=== PATIENT | female | born 1985 | race Caucasian/White ===

== ENCOUNTER 2021-09-01 07:16 | Outpatient (CLI) | payer OTHER, SELFPAY ==
--- NOTE | ~2021-09-01 | US_ITS ---
EXAMINATION: US right upper quadrant EXAM DATE: 09/01/2021 07:55 INDICATION: K80.20 - Calculus of gallbladder without cholecystitis. TECHNIQUE: Multiple grayscale and Doppler images of the abdomen right upper quadrant were obtained (b y a technologist who performed the scan) and subsequently reviewed. Comparison is made to prior exami nation from 08/13/2018. FINDINGS: The pancreatic head and body are normal in appearance. The pancreatic tail is not visualized. The l iver has normal echogenicity and contour. There are no focal liver lesions identified. There is no evidence of intrahepatic biliary duct dilation. Portal venous flow was seen in the hepatopedal, norm al direction and has normal Doppler waveform. No right-sided hydronephrosis. Common bile duct measures 3 mm, which is normal. There are multiple gallstones within an undistended bladder, wall echo shadow appearance. No sonographic evidence of pericholecystic fluid. Technologist performing exam reports patient did not demonstrate sonographic Martini's sign. Please note that thi s sign is less reliable in patients who have received pain medication. IMPRESSION: 1. Cholelithiasis. Reviewed, dictated and finalized at location A. IMPRESSION: 1. Cholelithiasis.
== END 2021-09-01 07:17 | disposition home or self-care (01) ==
LOC: ANHIMG 07:19
PROVIDERS: PCP Internal Medicine; Visit Provider Nurse Practitioner Family
DX: K80.20 Calculus of gallbladder without cholecystitis without obstruction (principal); R10.9 Unspecified abdominal pain
CPT/HCPCS: 76705

== ENCOUNTER 2021-09-23 03:38 | Day surgery (SDC) | payer OTHER, SELFPAY ==
[2021-09-02 14:07] VITALS: BMI 42.0
[2021-09-23 09:05] VITALS: BP 141/99; PULSE 60; RESP 18; TEMP 36.6; O2SAT 100
[2021-09-23] MEDS: LACTATED RINGERS 1,000 ML 150 ML IV CONT (09:14)
--- NOTE | 2021-09-23 09:54 | PM.HPGS ---
History of Present Illness History of Present Illness Consent: Risks, benefits, and alternatives have been discussed and questions answered. Patient agrees to proceed with procedure. Chief complaint: dysphagia, abdominal pain Narrative: Moriah Corona is a 35 year old female with intermittent upper abdominal pain and also few times sensation that food will get stuck briefly at chest level. Review of Systems Constitutional: Constitutional: Denies headache(s) and Denies weakness Eyes: Eyes: Denies blurry vision ENT: Reports Normal hearing present, Denies headache(s) and Denies neck pain Cardiovascular: Cardiovascular: Denies chest pain and Denies dyspnea Respiratory: Respiratory: Denies dyspnea Gastrointestinal: Gastrointestinal: Reports no additional gastrointestinal complaints Genitourinary: Genitourinary: Denies dysuria Musculoskeletal: Musculoskeletal: Denies neck pain Integumentary/Breasts: Skin/Breast: Denies dry skin Neurologic: Reports Normal hearing present, Denies headache(s) and Denies weakness Psychiatric: Psychiatric: Denies anxiety Endocrine: Endocrine: Denies change in body appearance Hematologic/Lymphatic: Hematologic/Lymphatic: Denies easy bleeding Allergic/Immunologic: Allergic/Immunologic: Denies urticaria PMFSH Past Medical History Medical History (Updated 08/04/21 @ 09:36 by SYEDA Coates) Abdominal pain Cholelithiases Dysphagia HTN (hypertension) Obese Surgical History Surgical History (Updated 08/04/21 @ 09:31 by SYEDA Coates) H/O: Hx of tonsillectomy Family History Family History Father Diabetes mellitus Sibling Hypertension Asthma Social History Social History Smoking status: Never smoker Second hand tobacco smoke exposure: No Alcohol intake: former Alcohol use details: very rarely Substance use: never Substance use type: does not use Living arrangements: with family Spiritual care concerns: No Meds Home Medications and Allergies Home Medications Medication Instructions Recorded Confirmed Type escitalopram oxalate 20 mg tablet 20 mg PO DAILY 08/04/21 09/02/21 History hydrochlorothiazide 12.5 mg tablet 12.5 mg PO DAILY 08/04/21 09/02/21 History lisinopril 40 mg tablet 40 mg PO DAILY 08/04/21 09/02/21 History Allergies Allergy/AdvReac Type Severity Reaction Status Date / Time No Known Allergies Allergy Verified 09/23/21 09:04 Vital Signs Vital Signs - 24 hr 09/23/21 09:05 Temperature 97.8 F Pulse Rate 60 Respiratory Rate 18 Blood Pressure 141/99 H Pulse Oximetry 100 Exam Const: General: comfortable and no acute distress HENMT: General nose exam: Normal nares present Eyes: General: appearance normal, both eyes and all related structures Neck: Neck: no JVD Resp: Auscultation: clear to auscultation bilaterally Cardio: Rate: regular rate Rhythm: regular rhythm GI: Inspection: non-distended GI Palp: Yes Soft to palpation Skin: General skin exam: normal color Neuro: General: gait normal Speech: normal speech Extrem: General: normal to inspection Psych: Mental Status: mental status grossly normal Assessment and Plan Assessment and plan (1) Dysphagia: Code(s): R13.10 - Dysphagia, unspecified Status: Acute Assessment and Plan: egd to assess, will get bx and dilation based on findings (2) Abdominal pain: Code(s): R10.9 - Unspecified abdominal pain Status: Acute (3) Obese: Code(s): E66.9 - Obesity, unspecified Status: Acute
--- NOTE | 2021-09-23 09:56 | P.PNAN_ITS ---
Anes - Eval Pre Procedure Procedure: Operation Date: 09/23/21 10:00 Proposed Procedures p Esophagogastroduodenoscopy - Isai Steven MD EGD Date/Time: 09/23/21 09:56 Surgeon: Bridget Preop Diagnosis: Dysplasia Pre Op Diagnosis: dysphagia, abdominal pain Patient Data Age: 35 Gender: F Height: 1.63 m Weight: 112.8 kg Last Vital Signs Temp 36.6 C 09/23/21 09:05 Pulse 60 09/23/21 09:05 Resp 18 09/23/21 09:05 BP 141/99 H 09/23/21 09:05 Pulse Ox 100 09/23/21 09:05 Allergies Allergy/AdvReac Type Severity Reaction Status Date / Time No Known Allergies Allergy Verified 09/23/21 09:04 Home Medications Medication Instructions Recorded Confirmed Type escitalopram oxalate 20 mg tablet 20 mg PO DAILY 08/04/21 09/02/21 History hydrochlorothiazide 12.5 mg tablet 12.5 mg PO DAILY 08/04/21 09/02/21 History lisinopril 40 mg tablet 40 mg PO DAILY 08/04/21 09/02/21 History HCG: negative Patient hx anesthesia problems: none Family hx anesthesia problems: none Results Review: All pre-operative results and documents have been reviewed as part of the pre-operative evaluation. [facility] Past Medical History Medical History (Updated 09/23/21 @ 09:58 by Treasure Lema CRNA) Abdominal pain Cholelithiases Dysphagia HTN (hypertension) Obese KRISTINA (obstructive sleep apnea) Surgical History Surgical History H/O: Hx of tonsillectomy Family History Family History Father Diabetes mellitus Sibling Hypertension Asthma Social History Social History Smoking status: Never smoker Second hand tobacco smoke exposure: No Alcohol intake: former Alcohol use details: very rarely Substance use: never Substance use type: does not use Living arrangements: with family Spiritual care concerns: No Exam Day of Procedure 09/23/21 09:56 Patient weight: morbidly obese Heart: regular rate and rhythm Lungs: normal air movement Airway: Mallampati scale class II Neurological: alert and oriented
--- NOTE | 2021-09-23 10:00 | WPDANESEFPP ---
Anes - Eval Final PreProcedure Day of Procedure 09/23/21 10:00 Patient weight: morbidly obese Heart: regular rate and rhythm Lungs: clear to auscultation Airway: Mallampati scale class II Neurological: alert and oriented Last oral intake: >/= 8 hours ASA classification: III Emergent: no Anesthetic plan: proceed Anesthesia type and monitoring: general GIVS and standard monitoring Results Review: All pre-operative results and documents have been reviewed as part of the pre-operative evaluation. Informed Consent: The patient's anesthetic plan and its attendant risks and benefits were discussed with the patient/family/POA. Questions were solicited and answers provided to the satisfaction of the patient/family/POA.
--- NOTE | 2021-09-23 10:12 | SUR.OPER ---
Esophageal Balloon Dilator Lot: [id number] Exp: 2023-04-11
[2021-09-23 10:21] VITALS: BP 126/79; PULSE 74; RESP 19; O2SAT 100
[2021-09-23 10:31] VITALS: BP 133/100; PULSE 63; RESP 19; O2SAT 100
[2021-09-23 10:41] VITALS: BP 137/90; PULSE 65; RESP 11; O2SAT 100
== END 2021-09-23 10:53 | disposition home or self-care (01) ==
PROVIDERS: PCP Internal Medicine; Visit Provider Internal Medicine Gastroenterology
PROC: 0DJ08ZZ Inspection of Upper Intestinal Tract, Via Natural or Artificial Opening Endoscopic (ICD-10-PCS; CPT 43235; principal; 2021-09-23 10:00)
DX: R13.10 Dysphagia, unspecified (principal); K21.00 Gastro-esophageal reflux disease with esophagitis, without bleeding; K44.9 Diaphragmatic hernia without obstruction or gangrene; K22.2 Esophageal obstruction; K29.70 Gastritis, unspecified, without bleeding; E66.01 Morbid (severe) obesity due to excess calories; Z68.41 Body mass index [BMI] 40.0-44.9, adult; I10 Essential (primary) hypertension; G47.33 Obstructive sleep apnea (adult) (pediatric)
CPT/HCPCS: 43249; 43239; 88305; C1726; J2704; J7120

== ENCOUNTER 2021-12-31 16:27 | Emergency (ER) | payer OTHER, SELFPAY ==
--- NOTE | ~2021-12-31 | CT_ITS ---
EXAMINATION: CT abdomen pelvis w con DATE: 12/31/2021 17:43 INDICATION: Abdominal pain. TECHNIQUE: Computed tomography (CT) of the abdomen and pelvis was performed with 100 mL Omnipaque 350 intravenous contrast. Automated exposure control and iterative reconstruction technique were employe d. The dose-length product was 1654.91 mGy-cm. COMPARISON: CT abdomen and pelvis 02/28/2019 FINDINGS: The visualized portions of the lung bases demonstrate mild atelectasis. Calcified right florentin g nodules and calcified right hilar lymph nodes are consistent with old granulomatous disease. No ple ural effusion. The heart size is normal. No pericardial effusion. There is a small sliding hiatal her carlota. The liver and spleen are normal. There are gallstones in the gallbladder, which is normal in siz e. The pancreas and adrenal glands are normal. There are cysts in the kidneys measuring up to 10 mm o n the right. There are no dilated loops of bowel. The appendix is normal. There are no pathologically enlarged lymph nodes. There is no free intraperitoneal fluid. There is mild thoracolumbar spondylosi s. IMPRESSION: 1. Cholelithiasis. No evidence of acute cholecystitis. 2. Small sliding hiatal hernia. Reviewed, dictated and finalized at location E. [employer]
[2021-12-31 16:29] VITALS: BP 158/86; PULSE 68; RESP 20; TEMP 36.1; O2SAT 100
[2021-12-31 16:59] LABS: Basophils Absolute Auto 0.1 K/mm3 (0.0-0.1); Basophils Percent Auto 0.6 % (0.2-1.2); Eosinophils Absolute Auto 0.2 K/mm3 (0-0.3); Eosinophils Percent Auto 1.5 % (0-4.4); Hematocrit 40.7 % (37.0-47.0); Hemoglobin 13.8 g/dL (12.0-15.0); Immature Granulocyte Absolute 0.02 K/mm3 (0.00-0.031); Immature Granulocyte Percent A 0.2 % (0-0.5); Lymphocytes Absolute Auto 2.78 K/mm3 (0.9-3.2); Lymphocytes Percent Auto 25.6 % (18.3-44.2); Mean Corpuscular HGB Conc 33.9 g/dl (32-36); Mean Corpuscular Hemoglobin 29.6 pg (26-34); Mean Corpuscular Volume 87.2 fl (80-100); Mean Platelet Volume 11.3 fl (7.4-10.4); Monocytes Absolute Auto 0.7 K/mm3 (0.1-0.6); Neutrophils Absolute Auto 7.2 K/mm3 (1.3-6.7); Neutrophils Percent Auto 66.1 % (45.5-73.1); Platelet Count Result 256 k/mm3 (150-375); Red Blood Count 4.67 M/mm3 (4.2-5.4); White Blood Count 10.9 K/mm3 (4.5-10.0)
--- NOTE | 2021-12-31 16:59 | ED.ABDPAIN ---
HPI - Abdominal Pain General Chief Complaint: Abdominal Pain Stated Complaint: abd pain Time Seen by Provider: 12/31/21 16:37 Source: patient Mode of arrival: ambulatory Limitations: no limitations History of Present Illness HPI narrative: This is a 36 year old female that presents to the ER for abdominal pain present today. Reports since last year she has been having intermittent episodes of upper abdominal and back pain. Reports it feels like a squeezing pain. She was evaluated by GI for this last year and had an upper endoscopy. Was placed on Omeprazole after this. Also reports she had a RUQ US that showed gallstones. Today the episode lasted longer than usual which prompted her to be seen. Reports an episode of vomiting today with the pain. Denies fever, chest pain, shortness of breath, or dysuria. Related Data Home Medications Medication Instructions Recorded Confirmed escitalopram oxalate 20 mg tablet 20 mg PO DAILY 08/04/21 09/28/21 hydrochlorothiazide 12.5 mg tablet 12.5 mg PO DAILY 08/04/21 09/28/21 lisinopril 40 mg tablet 40 mg PO DAILY 08/04/21 09/28/21 Allergies Allergy/AdvReac Type Severity Reaction Status Date / Time No Known Allergies Allergy Verified 09/28/21 08:55 Review of Systems Review of Systems: CONSTITUTIONAL: Denies fever CARDIOVASCULAR: Denies chest pain RESPIRATORY: Denies dyspnea. GASTROINTESTINAL: Reports abdominal pain, nausea, vomiting GENITOURINARY: Denies dysuria All systems reviewed & are unremarkable except as noted in HPI and below PMFSH Past Medical History Medical History (Updated 12/31/21 @ 19:31 by Loida Villareal PA-C) Abdominal pain Cholelithiases Dysphagia GERD (gastroesophageal reflux disease) HTN (hypertension) Obese KRISTINA (obstructive sleep apnea) Surgical History Surgical History H/O: Hx of tonsillectomy Family History Family History Father Diabetes mellitus Sibling Hypertension Asthma Social History Social History Second hand tobacco smoke exposure: No Alcohol intake: former Alcohol use details: very rarely Substance use: never Substance use type: does not use Spiritual care concerns: No Exam Narrative: GENERAL: Well-appearing, well-nourished, and in no acute distress. HEAD: Normocephalic, atraumatic. EYES: EOMI. CHEST: Clear to auscultation. No respiratory distress. No wheezes rales or rhonchi HEART: Regular rate and rhythm. No murmur heard. Normal peripheral pulses. ABDOMEN: Soft, nondistended, normal active bowel sounds. Mild tenderness to palpation in epigastrium, without guarding. No CVA tenderness EXTREMITIES: Normal range of motion. No edema. SKIN: Warm, dry, no rash. NEURO: No focal deficits. Alert and oriented x3. PSYCH: Normal mood and affect Course Vital Signs Vital signs: Vital Signs Temperature 96.9 F L 12/31/21 16:29 Pulse Rate 68 12/31/21 16:29 Respiratory Rate 20 12/31/21 16:29 Blood Pressure 158/86 H 12/31/21 16:29 Pulse Oximetry 100 12/31/21 16:29 Temperature 96.9 F L 12/31/21 16:29 Pulse Rate 68 12/31/21 16:29 Respiratory Rate 20 12/31/21 16:29 Blood Pressure 158/86 H 12/31/21 16:29 Pulse Oximetry 100 12/31/21 16:29 MDM - Abdominal Pain MDM Narrative Medical decision making narrative: This is a 36 year old female that presents to the ER for upper abdominal pain present over the last couple of hours. Reports she has had intermittent episodes of this pain over the last several months. She has been evaluated by GI for this and was started on Omeprazole for esophagitis and had an esophageal ring dilated. She has not been having any difficulty with swallowing since then. But is still intermittently having upper abdominal pains. She is afebrile and nontoxic-appearing. CBC with mild leukocytos
--- NOTE | 2021-12-31 17:04 | ECG_ITS ---
Measurements Intervals [place] Rate: 64 P: 58 TN: 194 QRS: 40 QRSD: 123 T: 67 QT: 420 QTc: 436 Interpretive Statements SINUS RHYTHM INCOMPLETE RIGHT BUNDLE BRANCH BLOCK BASELINE ARTIFACT- I, II, AVR BORDERLINE ECG Electronically Signed On 12-31-2021 20:10:11 [employer]ICA [employer] by Jed Null D.O.
[2021-12-31 17:08] LABS: Add Urine Microscopic? YES; Appearance Urine Clear (Clear); Bilirubin Urine Negative (Negative); Blood Urine 2+ (Negative); Color Urine Yellow (Yellow); Glucose Urine UA Negative (Negative); Ketones Urine Negative (Negative); Leukocyte Esterase Ur Negative LEU/UL (Negative); Mucus Urine Rare /lpf; Nitrate Urine Negative (Negative); Protein Urine 2+ mg/dL (Negative); Specific Grav Ur 1.028 (1.001-1.035); Squamous Epithelial Cell Urine Many /hpf (Few); WBC Urine 0-3 /hpf
[2021-12-31 17:09] LABS: Alanine Aminotransferase 43 U/L (4-35); Albumin Level 4.4 g/dL (3.5-5.1); Alkaline Phosphatase 72 U/L (38-126); Anion Gap 7 mmol/L (8-16); Aspartate Amino Transferase 58 U/L (14-36); Bilirubin,Total 0.9 mg/dL (0.2-1.3); Blood Urea Nitrogen 12 mg/dL (7-17); Carbon Dioxide 28 mmol/L (22-30); Chloride 103 mmol/L (98-107); Estimated CRCL calculation 113 ml/min; Estimated Glomerular Filt Rate > 60; Glucose 111 mg/dL (65-110); Lipase 121 U/L (23-300); Potassium 3.4 mmol/L (3.4-5.0); Sodium 138 mmol/L (137-145)
[2021-12-31] MEDS: ONDANSETRON INJ 4 MG/2 ML VIAL IV PUSH (17:22)
[2021-12-31] MEDS: PANTOPRAZOLE SODIUM IV 40 MG VIAL IV PUSH (17:22)
[2021-12-31] MEDS: SODIUM CHLORIDE 0.9% IV 1,000 ML 999 ML IV CONT (17:22)
--- NOTE | 2021-12-31 18:33 | PC.NURSE ---
Talked to Skinny in lab at 18:35 to add on Trop I baseline
[2021-12-31 18:57] LABS: Troponin I < 0.012 ng/mL (0.000-0.034)
--- NOTE | 2021-12-31 19:02 | PC.NURSE ---
Talked to Yimi in lab at 19:03 to add on PT INR PTT
[2021-12-31 19:17] LABS: Partial Thromboplastin Time 24.3 SECONDS (22.3-36.8); Prothrombin Time 13.1 Seconds (11.1-14.7)
[2021-12-31 19:35] VITALS: BP 142/86; PULSE 84; RESP 16; O2SAT 99
--- NOTE | 2022-01-04 14:45 | PC.NURSE ---
LATE ENTRY This note is being entered to document information to the patient's record. The following information was omitted on [ZOE Barfield], by [12/31/21]. [facility] [id number] [place] [id number]
== END 2021-12-31 19:40 | disposition home or self-care (01) ==
PROVIDERS: Physician Assistant; Emergency Provider Emergency Medicine; PCP Internal Medicine
DX: K80.20 Calculus of gallbladder without cholecystitis without obstruction (principal); K21.9 Gastro-esophageal reflux disease without esophagitis; I10 Essential (primary) hypertension; G47.33 Obstructive sleep apnea (adult) (pediatric); E66.9 Obesity, unspecified; Z68.43 Body mass index [BMI] 50.0-59.9, adult; K44.9 Diaphragmatic hernia without obstruction or gangrene; I45.10 Unspecified right bundle-branch block
CPT/HCPCS: 36415; 74177; 80053; 81001; 81025; 83690; 84484; 85025; 85610; 85730; 93005; 96361; 96365; 96375; 99284; C9113; J0131; J2405; J7030; Q9967

== ENCOUNTER 2022-08-11 14:45 | Inpatient (IN) | payer OTHER, SELFPAY ==
[2022-08-11] VITALS (7 sets, daily range): BP systolic 123–138; BP diastolic 84–90; PULSE 56–83; RESP 16–20; TEMP 36.1–36.4; O2SAT 95–100
--- NOTE | ~2022-08-11 | XR_ITS ---
EXAMINATION: XR abdomen/kub 1V DATE: 08/15/2022 03:08 INDICATION: Vomiting. TECHNIQUE: A supine view of the abdomen on 2 radiographs was obtained. COMPARISON: MRCP 08/12/2022 FINDINGS: There are no dilated loops of bowel. There is a small volume of stool in the colon. IMPRESSION: 1. Normal bowel gas pattern. Reviewed, dictated and finalized at location A.
--- NOTE | ~2022-08-11 | XR_ITS ---
EXAMINATION: XR chest 1V portable DATE: 08/16/2022 11:53 INDICATION: Hypoxia. TECHNIQUE: A single frontal view of the chest was obtained. COMPARISON: Chest single view 08/14/2022, CT abdomen and pelvis 09/14/2022 FINDINGS: The lung volumes are small. There are airspace opacities in right mid and lower lung zones and left lower lung zone. No pleural effusion or pneumothorax. The heart size is normal. IMPRESSION: 1. Small lung volumes with airspace opacities in right mid and lower lung zones and left lower lung z one, consistent with atelectasis or less likely pneumonia. Reviewed, dictated and finalized at location A. IMPRESSION: 1. Small lung volumes with airspace opacities in right mid and lower lung zones and left lower lung zone, consistent with atelectasis or less likely pneumonia .
--- NOTE | ~2022-08-11 | XR_ITS ---
EXAMINATION: XR chest PICC line 08/16/2022 13:56 INDICATION: PICC line placement PROCEDURE: AP portable chest COMPARISON: 08/16/2022 FINDINGS: Status post placement of left subclavian PICC line, tip near the cavoatrial junction. Shall ow inspiration with bibasilar airspace disease. The cardiomediastinal silhouette is within normal limits. There are no pleural effusions. There is no pneumothorax suspected. IMPRESSION: 1: Shallow inspiration with bibasilar airspace disease which may represent atelectasis or pneumonia. Reviewed, dictated and finalized at location B. IMPRESSION: 1: Shallow inspiration with bibasilar airspace disease which may represent ate lectasis or pneumonia.
--- NOTE | ~2022-08-11 | CT_ITS ---
EXAMINATION: CT abdomen pelvis w con DATE: 08/19/2022 17:34 INDICATION: pancreatitis TECHNIQUE: Computed tomography (CT) of the abdomen and pelvis was performed with 100 mL Omnipaque-350 intravenous contrast. Automated exposure control and iterative reconstruction technique were employe d. The dose-length product was 1654.23 mGy-cm. COMPARISON: 08/15/2022. FINDINGS: Lower thorax: Coronary artery cusp dictation. Small or pleural effusion. Small bilateral pleural effu sions with bibasilar atelectasis. Liver: Left lobe hypodensity, too small to characterize. Biliary/Gallbladder: Cholelithiasis. No bile duct dilation. Pancreas: Generally decreased peripancreatic fluid and inflammation at the pancreatic body/tail, with increased inflammation and fluid about the pancreatic head. Focal areas of hypodensity now apparent in the pancreatic head. Increased and somewhat localized appearing fluid in the area of pancreatic ne crosis. Spleen: Normal. Adrenals:No mass. Kidneys: Bilateral hypodensities that are too small to characterize. No suspicious mass, stone, or hy dronephrosis. GI tract: No small or large bowel dilation. Normal appendix. Mesentery/Peritoneum: Moderate volume ascites, slightly decreased since the prior study. No mass or f ree air. Retroperitoneum: No mass. Pelvis: Pelvic organs are within normal limits. Soft Tissues: Small uncomplicated fat-containing umbilical hernia. Moderate subcutaneous edema in the trunk. Bones: No acute osseous finding. IMPRESSION: Slightly increased small pericardial and bilateral pleural effusions. Focal worsening of peripancreat ic inflammation at the pancreatic head, likely with new focal areas of necrosis. 6.7 cm acute necroti c collection in the pancreatic body. Overall decreased peritoneal fluid. Worsened wall edema. Reviewed, dictated and finalized at location K. IMPRESSION: Slightly increased small pericardial and bilateral pleural effusions. Focal wor sening of peripancreatic inflammation at the pancreatic head, likely with new f ocal areas of necrosis. 6.7 cm acute necrotic collection in the pancreatic body . Overall decreased peritoneal fluid. Worsened wall edema.
--- NOTE | ~2022-08-11 | XR_ITS ---
EXAMINATION: XR fl guid NG/feed tube insert DATE: 08/21/2022 12:06 INDICATION: Discomfort with prior nasogastric tube insertions. Repeat is a gastric tube insertion req uested with fluoroscopic guidance. TECHNIQUE: A nasogastric tube was advanced into the in stomach utilizing intermittent fluoroscopy. Final image d emonstrates the nasogastric tube in position with the distal tip at the gastric antrum. The tube was fixed to the nares with adhesive tape. 3 fluoroscopic images and a single overhead radiographs were r ecorded. The amount of fluoroscopy time used during this procedure was 0.9 minutes. There were no imm ediate complications. Total DAP was 35.966 Gycm^2 FINDINGS/IMPRESSION: 1. Successful fluoroscopy-guided nasogastric tube placement with distal tip at the gastric antrum. 2. Multiple calcified gallstones in the right upper quadrant. Reviewed, dictated and finalized at location A.
--- NOTE | ~2022-08-11 | XR_ITS ---
EXAMINATION: XR chest 1V portable DATE: 08/14/2022 20:10 INDICATION: Chest pain, nausea and vomiting TECHNIQUE: frontal view of the chest was obtained. COMPARISON: None FINDINGS: The lungs are clear with no focal airspace opacities, pulmonary edema, pleural effusion or pneumothor ax. The cardiomediastinal silhouette is normal. Visualized bones and soft tissues are unremarkable. IMPRESSION: 1. No acute cardiopulmonary disease. Reviewed, dictated and finalized at location A.
--- NOTE | ~2022-08-11 | CT_ITS ---
EXAMINATION: CT abdomen pelvis w con DATE: 08/15/2022 12:39 INDICATION: Abdominal pain. Pancreatitis. Leukocytosis. TECHNIQUE: Computed tomography (CT) of the abdomen and pelvis was performed with 100 mL Omnipaque 350 intravenous contrast. Automated exposure control and iterative reconstruction technique were employe d. The dose-length product was 1544.84 mGy-cm. COMPARISON: CT abdomen and pelvis 12/31/2021, MRCP 08/12/2022 FINDINGS: The visualized portions of the lung bases demonstrate mild atelectasis. A calcified right l ld nodule and calcified right hilar lymph nodes are consistent with old granulomatous disease. There are trace pleural effusions. The heart size is normal. There is a trace pericardial effusion. There is a small sliding hiatal hernia. There is a 5 mm cyst in the liver. There are gallstones in the gall bladder, which is normal in size. There is gas in the gallbladder lumen, likely secondary to sphincte rotomy. The spleen and adrenal glands are normal. There are cysts in the kidneys measuring up to 5 mm on the right. There is heterogeneous enhancement of the pancreas and nonenhancement at the junction of the head and body of the pancreas. There is extensive fat stranding and fluid around the pancreas extending into the pelvis. There is a moderate volume of ascites. The bladder is decompressed by a Fo concepcion catheter. There are no dilated loops of bowel. The appendix is normal. There are no pathologicall y enlarged lymph nodes. There is mild thoracolumbar spondylosis. IMPRESSION: 1. Acute necrotic pancreatitis. 2. Worsened moderate volume of ascites. 3. Cholelithiasis. Reviewed, dictated and finalized at location A.
--- NOTE | ~2022-08-11 | XR_ITS ---
EXAMINATION: XR abdomen NG/feed tube insert DATE: 08/15/2022 05:27 INDICATION: Nasogastric tube placement. TECHNIQUE: A supine view of the abdomen was obtained. COMPARISON: MRCP 08/12/2022 FINDINGS: There are no dilated loops of bowel. The lower abdomen is excluded. The nasogastric tube ti p is in the stomach. IMPRESSION: 1. Nasogastric tube tip in the stomach. Reviewed, dictated and finalized at location A.
--- NOTE | ~2022-08-11 | XR_ITS ---
EXAMINATION: XR ERCP DATE: 08/14/2022 16:09 INDICATION: Abdominal pain and cholelithiasis. TECHNIQUE: 3 spot fluoroscopic images of the right upper quadrant were obtained during endoscopic ret rograde cholangiopancreatography (ERCP) performed by Dr. Gilbert. Radiologist was not present for the i maging or procedure. The amount of fluoroscopy time used during this procedure was 0.5 minutes. COMPARISON: None. FINDINGS: Images demonstrate endoscopic cannulation and contrast injection into the common bile duct. There are couple ovoid filling defects within the common bile duct which could represent either gallstones or gas bubbles. The common bile duct appears to be at the upper limits of normal in diameter. IMPRESSION: 1. Lucent filling defects within the contrast opacified common bile duct which could represent either gallstones or gas bubbles. Please refer to the ERCP procedure note for additional details. Reviewed, dictated and finalized at location A. IMPRESSION: 1. Lucent filling defects within the contrast opacified common bile duct which could represent either gallstones or gas bubbles. Please refer to the ERCP proc edure note for additional details.
--- NOTE | ~2022-08-11 | CT_ITS ---
EXAMINATION: CT abdomen pelvis wo con DATE: 08/21/2022 11:15 INDICATION: Increasing abdominal pain with pancreatitis. TECHNIQUE: Computed tomography (CT) of the abdomen and pelvis was performed without intravenous contr ast. The dose-length product was 1701.46 mGy-cm. Automated exposure control and iterative reconstruct ion technique were employed. COMPARISON: CT dated 08/19/2022. FINDINGS: Persistent pericardial and pleural effusions without significant change. There is thickened ill-defined pancreas with worsening surrounding phlegmonous change, consistent with pancreatitis. In creased size of hypodense mass involving the pancreatic body measuring 5.7 cm. There are gallstones. No significant hydronephrosis. Small fat-containing umbilical hernia. Increasing ascites compared wit h prior CT. No free air. IMPRESSION: 1. Pancreatitis with worsening peripancreatic phlegmonous change. Enlarging hypodense mass of the flynn creatic body which may represent pancreatic necrosis, pseudocyst formation or abscess. This is incomp letely evaluated without contrast. 2: Cholelithiasis. 3: Slightly increased volume of ascites. 4: Stable pericardial and pleural effusions. Bibasilar airspace disease may represent atelectasis and /or pneumonia. Reviewed, dictated and finalized at location A. IMPRESSION: 1. Pancreatitis with worsening peripancreatic phlegmonous change. Enlarging hyp odense mass of the pancreatic body which may represent pancreatic necrosis, pse udocyst formation or abscess. This is incompletely evaluated without contrast. 2: Cholelithiasis. 3: Slightly increased volume of ascites. 4: Stable pericardial and pleural effusions. Bibasilar airspace disease may rep resent atelectasis and/or pneumonia.
--- NOTE | ~2022-08-11 | XR_ITS ---
XR abdomen/kub 1V 08/18/2022 08:51 Indication: Abdomen pain. Pancreatitis. Procedure: KUB Comparison: CT dated 08/15/2022 Findings: Bowel gas pattern is nonobstructive. There are gallstones. No acute osseous abnormality. Mi ld levocurvature of the lumbar spine. No acute osseous abnormality. Impression: 1: Cholelithiasis. Reviewed, dictated and finalized at location B. Impression: 1: Cholelithiasis.
--- NOTE | ~2022-08-11 | US_ITS ---
EXAMINATION: US venous doppler E DATE: 08/21/2022 14:59 INDICATION: Left arm warmth and swelling TECHNIQUE: Grayscale ultrasound images without and with compression and Doppler ultrasound images of the left upper extremity veins were obtained. COMPARISON: None.. FINDINGS: The visualized portions of the left internal jugular vein, subclavian vein, axillary vein, brachial v eins, basilic vein, cephalic vein, radial vein, and ulnar vein are patent. Left upper extremity PICC. IMPRESSION: 1. No deep venous thrombosis. Reviewed, dictated and finalized at location K.
--- NOTE | ~2022-08-11 | US_ITS ---
EXAMINATION: US right upper quadrant DATE: 08/11/2022 17:01 INDICATION: Right upper quadrant pain TECHNIQUE: Multiple grayscale and Doppler ultrasound images of the abdomen were obtained. COMPARISON: 09/01/2021 FINDINGS: The head and body of the pancreas are normal. The pancreatic tail is obscured by bowel gas. The liver is normal with normal echogenicity and echotexture. No surface nodularity. Normal hepatope charmaine flow in the main portal vein. There are innumerable stones in the nondistended gallbladder. There is no pericholecystic fluid or gallbladder wall thickening. The normal common bile duct measures 4 m m. There was no sonographic Martini sign. IMPRESSION: 1. Cholelithiasis without additional findings of cholecystitis. Reviewed, dictated and finalized at location A.
--- NOTE | ~2022-08-11 | MR_ITS ---
EXAMINATION: MR MRCP wo/w con/w 3D wo ind DATE: 08/12/2022 12:52 INDICATION: Abnormal liver function tests. TECHNIQUE: Magnetic resonance imaging (MRI) of the abdomen was performed without and with 20 mL Multi Kady intravenous contrast. Sequences included coronal T2-weighted FS FSE, coronal T2-weighted FSE, a xial T1-weighted LAVA, coronal FS FIESTA, axial dual-echo T1-weighted SPGR, coronal lava-FLEX, sagitt al T2-weighted FSE, axial T2-weighted FSE, and axial DWI. Thick-slab T2-weighted FSE images were obta ined for magnetic resonance cholangiopancreatography (MRCP). Maximum intensity projection 3-D reconst ructions of the volumetric data were created by the technologist. Postcontrast sequences included cor onal LAVA-flex and time course of axial T1-weighted LAVA. COMPARISON: CT abdomen and pelvis 12/31/2021, ultrasound 08/11/2022 FINDINGS: ABDOMEN MRI: There are tiny pleural effusions. There is diffuse hepatic steatosis. There are cysts in the liver measuring up to 6 mm. There are gallstones in the gallbladder, which is distended. The spl een is normal. Pancreas divisum is noted. The adrenal glands, and right kidney are normal. There is a 6 mm cyst in left kidney. There are no dilated loops of bowel. The appendix is normal. There is phys iologic fluid in the pelvis. There are no pathologically enlarged lymph nodes. ABDOMEN MRCP: The common duct is dilated to 8 mm. There are filling defects in the common duct measur ing up to 4 mm, consistent with choledocholithiasis. IMPRESSION: 1. Choledocholithiasis and mild common duct dilatation. 2. Cholelithiasis and gallbladder distention. No gallbladder wall thickening to suggest acute cholecy stitis. Reviewed, dictated and finalized at location E. IMPRESSION: 1. Choledocholithiasis and mild common duct dilatation. 2. Cholelithiasis and gallbladder distention. No gallbladder wall thickening to suggest acute cholecystitis.
--- NOTE | ~2022-08-11 | US_ITS ---
EXAMINATION: US venous doppler [facility] DATE: 08/17/2022 15:56 INDICATION: Bilateral lower limb pain and swelling TECHNIQUE: Russell scale images without and with compression and Doppler images of the bilateral lower e xtremity veins were obtained. COMPARISON: None FINDINGS: There is deep venous thrombosis in the right posterior tibial and peroneal veins. The right common fe moral vein, profunda femoral vein, femoral vein, popliteal vein, and greater saphenous vein are paten t. The left common femoral vein, profunda femoral vein, femoral vein, popliteal vein, peroneal trunk, po sterior tibial veins, and greater saphenous vein are patent. IMPRESSION: 1. Deep venous thrombosis in the right posterior tibial and peroneal veins. Otherwise, patent bilater al lower extremity veins. These findings were discussed with CEASAR Michaud working with Dr. Granger at 16 02 hours on 08/17/2022. Reviewed, dictated and finalized at location A. IMPRESSION: 1. Deep venous thrombosis in the right posterior tibial and peroneal veins. Oth erwise, patent bilateral lower extremity veins. These findings were discussed with CEASAR Michaud working with Dr. Granger at 1602 hours on 08/17/2022.
[2022-08-11 15:31] LABS: Basophils Absolute Auto 0.1 K/mm3 (0.0-0.1); Basophils Percent Auto 0.9 % (0.2-1.2); Eosinophils Absolute Auto 0.2 K/mm3 (0-0.3); Eosinophils Percent Auto 2.4 % (0-4.4); Hematocrit 41.6 % (37.0-47.0); Hemoglobin 14.1 g/dL (12.0-15.0); Immature Granulocyte Absolute 0.04 K/mm3 (0.00-0.031); Immature Granulocyte Percent A 0.4 % (0-0.5); Lymphocytes Absolute Auto 1.61 K/mm3 (0.9-3.2); Lymphocytes Percent Auto 16.9 % (18.3-44.2); Mean Corpuscular HGB Conc 33.9 g/dl (32-36); Mean Corpuscular Hemoglobin 29.6 pg (26-34); Mean Corpuscular Volume 87.4 fl (80-100); Mean Platelet Volume 11.1 fl (7.4-10.4); Monocytes Absolute Auto 0.4 K/mm3 (0.1-0.6); Monocytes Percent Auto 3.9 % (2.6-8.5); Neutrophils Absolute Auto 7.2 K/mm3 (1.3-6.7); Neutrophils Percent Auto 75.5 % (45.5-73.1); Platelet Count Result 272 k/mm3 (150-375); Red Blood Count 4.76 M/mm3 (4.2-5.4); White Blood Count 9.5 K/mm3 (4.5-10.0)
[2022-08-11 15:40] LABS: Alanine Aminotransferase 497 U/L (6-35); Albumin Level 4.2 g/dL (3.5-5.1); Alkaline Phosphatase 162 U/L (38-126); Anion Gap 10 mmol/L (8-16); Aspartate Amino Transferase 594 U/L (14-36); Bilirubin,Total 4.1 mg/dL (0.2-1.3); Blood Urea Nitrogen 10 mg/dL (7-17); Calcium 9.2 mg/dL (8.4-10.2); Carbon Dioxide 30 mmol/L (22-30); Chloride 97 mmol/L (98-107); Estimated CRCL calculation 101 ml/min; Estimated Glomerular Filt Rate > 60; Glucose 130 mg/dL (65-110); Lipase 110 U/L (23-300); Potassium 3.8 mmol/L (3.4-5.0); Sodium 137 mmol/L (137-145)
[2022-08-11 16:22] LABS: Bacteria Urine Trace /hpf; Mucus Urine Rare /lpf; Squamous Epithelial Cell Urine Many /hpf (Few)
[2022-08-11 16:23] LABS: Add Urine Microscopic? YES; Appearance Urine Slightly Cloudy (Clear); Color Urine Orange (Yellow)
--- NOTE | 2022-08-11 17:54 | ED.ABDPAIN ---
HPI - Abdominal Pain General Chief Complaint: Abdominal Pain Stated Complaint: abd pain, nausea Time Seen by Provider: 08/11/22 16:06 History of Present Illness HPI narrative: Patient is a 36-year-old female who presents ER with right upper quadrant abdominal pain. Reports she had severe pain yesterday and went to [facility] to be evaluated however her pain subsided and the wait was long so she left. She has had recurrent pain today. It occurs at least 30 minutes after she eats. She has had nausea and vomiting at both times. Currently pain is resolved. No fevers or chills or sweats. Related Data Home Medications Medication Instructions Recorded Confirmed escitalopram oxalate 20 mg tablet 20 mg PO DAILY 08/04/21 09/28/21 (Lexapro) hydrochlorothiazide 12.5 mg tablet 12.5 mg PO DAILY 08/04/21 09/28/21 lisinopril 40 mg tablet 40 mg PO DAILY 08/04/21 09/28/21 Allergies Allergy/AdvReac Type Severity Reaction Status Date / Time No Known Allergies Allergy Verified 09/28/21 08:55 Review of Systems Review of Systems: All systems reviewed & are unremarkable except as noted in HPI and below Constitutional: Constitutional: Denies chills, Denies fatigue and Denies fever(s) Cardiovascular: Cardiovascular: Denies chest pain and Denies rapid heart rate Respiratory: Respiratory: Denies cough and Denies dyspnea Gastrointestinal: Gastrointestinal: Reports abdominal pain, Denies diarrhea, Reports nausea and Reports vomiting Genitourinary: Genitourinary: Denies nocturia and Denies dysuria [facility] Past Medical History Medical History (Updated 08/11/22 @ 18:53 by Kenny Lanier MD) Abdominal pain Cholelithiases Dysphagia GERD (gastroesophageal reflux disease) HTN (hypertension) Obese KRISTINA (obstructive sleep apnea) Surgical History Surgical History H/O: Hx of tonsillectomy Family History Family History Father Diabetes mellitus Sibling Hypertension Asthma Social History Social History Second hand tobacco smoke exposure: No Alcohol intake: former Alcohol use details: very rarely Substance use: never Substance use type: does not use Spiritual care concerns: No Exam Narrative: GENERAL: Well-appearing, well-nourished, and in no acute distress. HEAD: Normocephalic, atraumatic. CHEST: Clear to auscultation. No respiratory distress. HEART: Regular rate and rhythm. Normal peripheral pulses. ABDOMEN: Soft, nontender, nondistended. EXTREMITIES: Normal range of motion. No edema. SKIN: Warm, dry, no rash. NEURO: Alert and oriented x3. PSYCH: Normal mood and affect. Course Course Emergency Course: Patient resting comfortably. Informed of results. Discussed case with Dr. Momin who would like patient admitted for observation make sure labs normalize. Admit to hospitalist. Request GI consult for tomorrow. Vital Signs Vital signs: Vital Signs Temperature 97.5 F L 08/11/22 15:25 Pulse Rate 83 08/11/22 15:25 Respiratory Rate 20 08/11/22 15:25 Blood Pressure 135/84 08/11/22 15:25 Pulse Oximetry 99 08/11/22 15:25 Oxygen Delivery Room Air 08/11/22 15:25 Temperature 97.5 F L 08/11/22 15:25 Pulse Rate 83 08/11/22 15:25 Respiratory Rate 20 08/11/22 15:25 Blood Pressure 135/84 08/11/22 15:25 Pulse Oximetry 99 08/11/22 15:25 Oxygen Delivery Room Air 08/11/22 15:25 MDM - Abdominal Pain Lab Data Result diagrams: 08/11/22 15:23 08/11/22 15:23 Labs: Lab Results 08/11/22 08/11/22 08/11/22 Range/Units 15:23 15:23 16:10 WBC 9.5 (4.5-10.0) K/mm3 RBC 4.76 (4.2-5.4) M/mm3 Hgb 14.1 (12.0-15.0) g/dL Hct 41.6 (37.0-47.0) % MCV 87.4 (80-100) fl MCH 29.6 (26-34) pg MCHC 33.9 (32-36) g/dl RDW 13.0 (11.5-14.
[2022-08-11] MEDS: SODIUM CHLORIDE 0.9% IV 1,000 ML 125 ML IV CONT ×2 (19:36→21:13)
--- NOTE | 2022-08-11 23:50 | PM.IMHP ---
H&P: HPI History of Present Illness Date/Time: 08/11/22 23:50 Chief Complaint: abdominal pain Narrative: this is a 36-year-old female patient who has had several bouts with cholelithiasis. The patient stated during the winter last year she was having problems with her gallstones and never did follow-up with a surgeon because her symptoms resolved. The patient has not been watching her diet. Last night the patient had little [employer] and develops discomfort In her right upper quadrant. The patient actually had gone to [facility] to be seen but they were so busy that she did not get into a room in the ER and the patient was starting to feel better last night. However the pain came back today. Her pain came on today about 30 minutes after eating again. She had nausea and vomiting both times. She had consult to see a surgeon and just has not done it as of yet she is concerned about having postop complications. She had postop complications with 1 of her C-sections and is fearful of surgery now. Ultrasound of her upper abdomen shows cholelithiasis without additional findings of cholecystitis. Total bilirubin 4.1 AST is 594, ALT 495, alkaline phosphatase 162. Surgery and GI have been consulted. An order for MRCP has been placed. The patient was started on IV fluids and given IV Tylenol. The patient is being admitted to observation status on the date of service of 08/11/2022. Review of Systems Review of Systems: See HPI All systems reviewed & are unremarkable except as noted in HPI and below Constitutional: Constitutional: Reports as per HPI and Reports no additional constitutional complaints Eyes: Eyes: Reports as per HPI and Reports no additional eye complaints ENT: Reports system reviewed and no additional complaints, except as documented and Reports Normal hearing present Cardiovascular: Cardiovascular: Reports no additional cardiovascular complaints Respiratory: Respiratory: Reports no additional respiratory complaints and Reports no additional respiratory complaints Gastrointestinal: Gastrointestinal: Reports as per HPI and Reports no additional gastrointestinal complaints Musculoskeletal: Musculoskeletal: Reports no additional musculoskeletal complaints Integumentary/Breasts: Skin/Breast: Reports system reviewed and no additional complaints, except as docu and Reports as per HPI Neurologic: Reports system reviewed and no additional complaints, except as documented, Reports as per HPI and Reports Normal hearing present Psychiatric: Psychiatric: Reports no additional psychiatric complaints and Reports as per HPI Endocrine: Endocrine: Reports no additional endocrine complaints Hematologic/Lymphatic: Hematologic/Lymphatic: Reports no additional hematologic/lymphatic complaints Allergic/Immunologic: Allergic/Immunologic: Reports no additional allergic/immunologic complaints [facility] Past Medical History Medical History (Updated 08/11/22 @ 23:57 by Aislinn Sol NP) Abdominal pain Anxiety Cholelithiases Dysphagia GERD (gastroesophageal reflux disease) HTN (hypertension) Obese KRISTINA (obstructive sleep apnea) she does not wear her CPAP machine she has an oral apparatus. Surgical History Surgical History (Updated 08/11/22 @ 23:56 by Aislinn Sol NP) H/O abdominal surgery due to postop postop complication H/O tubal ligation H/O: X3 Hx of tonsillectomy Family History Family History Father Diabetes mellitus Sibling Hypertension Asthma Social History Social History (Updated 08/11/22 @ 23:57 by Aislinn Sol NP) Social History: the patient is and lives with her . They have 3 children together. She is a lifelong nonsmoker. She does not use any alcohol marijuana or illicit drugs. 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 Her is the durable power horse trader for healthcare. Code status
[2022-08-12 00:22] VITALS: BMI 41.8
--- NOTE | 2022-08-12 00:25 | PC.NURSE ---
This patient, Moriah Corona, was admitted to [facility] Surg Room 319-01. Patient/family oriented to hospital policies and general routines including ID bracelet, bed and alarms, visiting hours, pain management, procedures, bathroom and other care routines, personal items, smoking policy, room service/diet, and visiting hours. Information on how to activate the Rapid Response Team has been discussed. Patient/Family are encouraged to report perceived risks to care and to ask questions if they do not understand what they are told or what they should do. arrived at 2034
[2022-08-12 06:00] VITALS: BP 145/92; PULSE 56; RESP 18; TEMP 36.4; O2SAT 100
--- NOTE | 2022-08-12 09:39 | WPDGICN ---
Assessment and Plan Assessment and plan (1) Transaminitis: Code(s): R74.01 - Elevation of levels of liver transaminase levels Status: Acute Assessment and Plan: marked elevation of her liver enzymes suggest choledocholithiasis. Although bile ducts are normal on initial imaging, she will need an MRCP. I told her that if MRCP suggest sludge or stones in the bile duct, or if LFTs remain elevated, that we would need to perform an ERCP so that she could have a simple laparoscopic cholecystectomy. (2) Cholelithiases: Code(s): K80.20 - Calculus of gallbladder without cholecystitis without obstruction Status: Acute Assessment and Plan: She has known about gallstones for most of the past year but was hesitant about seen a surgeon because she had postoperative complications after a Caesarean section. (3) Abdominal pain: Code(s): R10.9 - Unspecified abdominal pain Status: Acute Assessment and Plan: Her pain is not present today. Most of her attacks Generally would last less than an hour until the past few days. (4) GERD (gastroesophageal reflux disease): Code(s): K21.9 - Gastro-esophageal reflux disease without esophagitis Status: Acute Assessment and Plan: she uses [id number] meds as needed Plan I had a long discussion with her regarding the anatomy of the biliary tract and how gallstones leave the gallbladder and can get impacted in the bile duct. I explained a correlation of her abnormal liver enzymes. I told her that she will certainly need her gallbladder to be removed and possibly an ERCP. She has an MRCP scheduled for this morning. GI Consult Note Consult date/time: 08/12/22 09:39 HPI: Moriah Corona is a 36 year old female Who was admitted last evening with abdominal pain and vomiting. The patient states that she has had gallbladder attacks a past year or so. She did have an ultrasound 8 or 9 months ago that did show gallstones and she had actually been referred at 1 time to a surgeon. Usually her attacks would look her towards evening but more recently they would occur as well during the day and last anywhere from a few minutes to up to 1 hour. Is generally a bandlike discomfort and tightness across her upper abdomen and around her torso at the lower thoracic area. She had had pizza 2 days ago and became uncomfortable with pain primarily in the upper right side. She went to an emergency room in [place] but waited so long to get seen that she went home because the pain had subsided by that time. On arrival yesterday she had pain that had been going on for longer period of time. She also was vomiting on when she had some pain she has noticed that her urine is darker particularly take a more so than yesterday she has never had liver disease in the past. I note that when she was seen in our emergency room her bilirubin was normal AST 58 and ALT 43. At this time they are all approximately 10 times elevated with AST 594, ALT 497, and now the alkaline phosphatase is elevated. Her bilirubin is 4.1. Lipase is normal. She has otherwise no gastrointestinal complaints. Her weight is stable. She denies dysphagia or chronic heartburn, she denies change in bowel habits. She is not aware of any family history of gallbladder disease CT scan of the abdomen showed: 1. Cholelithiasis. No evidence of acute cholecystitis. 2. Small sliding hiatal hernia. I have personally reviewed the CT scan. Ultrasound also shows only gallstones and no dilated bile duct. Review of Systems Review of Systems: All systems reviewed & are unremarkable except as noted in HPI and below PMFSH Past Medical History Medical History Abdominal pain Anxiety Cholelithiases Dysphagia GERD (gastroesophageal reflux disease) HTN (hypertension) Obese KRISTINA (obstructive sleep apnea) she does not wear her CPAP machine she
[2022-08-12] MEDS: lisinopriL 20 MG TABLET 40 MG PO (09:45)
[2022-08-12] MEDS: ESCITALOPRAM OXALATE 10 MG TABLET 20 MG PO (09:45)
[2022-08-12] MEDS: hydroCHLOROthiazide 25 MG TABLET PO (09:45)
[2022-08-12 09:46] VITALS: BP 146/89; PULSE 61; O2SAT 100
--- NOTE | 2022-08-12 09:57 | PM.CNGS ---
Assessment and Plan Assessment and plan (1) Cholelithiases: Code(s): K80.20 - Calculus of gallbladder without cholecystitis without obstruction Status: Acute Assessment and Plan: I have reviewed the imaging and discussed the findings with the patient. She has evidence of cholelithiasis and has had intermittent attacks of pain and was noted to have significantly elevated liver enzymes on presentation to the emergency department yesterday. The high bilirubin level is concerning for possible choledocholithiasis although her common bile duct appeared normal on the ultrasound. Will await MRCP results to determine if ERCP is necessary. I discussed proceeding with laparoscopic cholecystectomy at some point in the near future. If MRCP is normal, could plan for laparoscopic cholecystectomy in the next 24-48 hours. If she is completely asymptomatic and liver enzymes are normalizing, then this could be delayed shortly and she could be brought back as an outpatient to proceed with surgery. Will discuss best recommendation of treatment once MRCP is obtained and follow up morning labs are reviewed. (2) Transaminitis: Code(s): R74.01 - Elevation of levels of liver transaminase levels Status: Acute (3) Hyperbilirubinemia: Code(s): E80.6 - Other disorders of bilirubin metabolism Status: Acute (4) Upper abdominal pain: Code(s): R10.10 - Upper abdominal pain, unspecified Status: Acute Plan Thank you very much for allowing us to aid in the care of this patient. History of Present Illness Consult details Consult date: 08/12/22 Reason for consult: gallstones Requesting physician: Kenny Lanier MD Narrative: This is a 36-year-old woman who I am asked to see for cholelithiasis. She has had some intermittent abdominal pains over the past year. She has noticed that fried foods caused the pain once in the past. The symptoms had resolved and she was tolerating eating foods like pizza without any recurrence of pain. Over the past week she has had multiple episodes of abdominal pain that come and go. Her pain is located in the upper abdomen and radiating around to her back. She denies any fevers or chills. She has not noticed any jaundice of her skin. She did notice her urine turned very dark yesterday. She denies any change in her bowel habits or stool color. She presented to the emergency department yesterday with the symptoms and was admitted for further treatment. Her pain is only mild and intermittent at this time. MRCP has been ordered but has not been done yet today. Review of Systems Review of Systems: All systems reviewed & are unremarkable except as noted in HPI and below Eyes: Eyes: Denies change in vision ENT: Denies hearing loss, Denies neck pain and Denies sore throat Cardiovascular: Cardiovascular: Denies chest pain and Denies dyspnea Respiratory: Respiratory: Denies cough, Denies dyspnea and Denies wheezing Gastrointestinal: Gastrointestinal: Reports as per HPI Genitourinary: Genitourinary: Denies hematuria and Denies dysuria Musculoskeletal: Musculoskeletal: Denies arthralgias, Denies joint swelling and Denies neck pain Allergic/Immunologic: Allergic/Immunologic: Denies wheezing [facility] Past Medical History Medical History Abdominal pain Anxiety Cholelithiases Dysphagia GERD (gastroesophageal reflux disease) HTN (hypertension) Obese KRISTINA (obstructive sleep apnea) she does not wear her CPAP machine she has an oral apparatus. Surgical History Surgical History H/O abdominal surgery due to postop postop complication H/O tubal ligation H/O: X3 Hx of tonsillectomy Family History Family History Father Diabetes mellitus Sibling Hypertension Asthma Social Hist
--- NOTE | 2022-08-12 13:50 | PM.IMPN ---
Progress Note: A&P Assessment and Plan (1) Cholelithiases: Code(s): K80.20 - Calculus of gallbladder without cholecystitis without obstruction Status: Acute Assessment and Plan: - surgery has been consulted. The patient has had several bouts of gallbladder attacks throughout the year. - GI has been consulted as well due to the elevated liver enzymes. - Plan is for MRCP followed by possible ERCP and lap Marcela in next couple of days. - Continue with IV fluids - NPO except for medications. - continue with analgesics - MRCP today. (2) Transaminitis: Code(s): R74.01 - Elevation of levels of liver transaminase levels Status: Acute Assessment and Plan: - MRCP has been ordered - GI has been consulted (3) Anxiety: Code(s): F41.9 - Anxiety disorder, unspecified Status: Acute Assessment and Plan: - resume Lexapro (4) HTN (hypertension): Code(s): I10 - Essential (primary) hypertension Status: Acute Assessment and Plan: - resume hydrochlorothiazide and lisinopril Time Spent With Patient Time with patient: 15 - 25 minutes Subjective Date/time seen: 08/12/22 1000 This pt is examined at the bedside today in interval assessment after being admitted for acute cholelithiasis. She is being evaluated by both GI and surgery and is having an MRCP today. Her T-Bili is 4.1. AST/ALT are both elevated as well. She has pain in the RUQ and it radiates to her back. She has no nausea currently as she is not eating. There is no fever and she has no other complaints at this time. Review of Systems Review of Systems: All systems reviewed & are unremarkable except as noted in HPI and below Exam Const: General: comfortable and no acute distress HENMT: General nose exam: Normal nares present Mouth: Yes moist mucous membranes Eyes: General: appearance normal, both eyes and all related structures Sclera: sclerae normal Pupils: Equal, round and reactive pupils present EOM: EOMs intact bilaterally Neck: Neck: supple and no JVD Lymphatic: lymphadenopathy not noted Resp: Effort & Inspection: normal respiratory effort Auscultation: clear to auscultation bilaterally Cardio: Rate: regular rate Rhythm: regular rhythm Heart sounds: no gallops, no murmurs and no rubs GI: Inspection: non-distended GI Palp: Yes Soft to palpation, No Tenderness to palpation present (GI) and No Guarding due to palpation present (GI) Auscultation: normal bowel sounds Skin: General skin exam: normal color, no rashes or lesions noted and no erythema Lesions: no lesions noted Rashes: no rashes noted Wounds: no wounds Neuro: General: No gait normal Speech: normal speech Motor exam (neuro): 5/5 motor strength present throughout and Normal motor muscle tone present throughout Sensory Exam: No normal sensation Extrem: General: normal to inspection, no edema and no pedal edema Psych: Mental Status: mental status grossly normal Objective Data Vital Signs Vital Signs: Vital Signs - 24 hr 08/11/22 15:25 08/11/22 16:20 08/11/22 16:42 Temperature 97.5 F L Pulse Rate 83 Respiratory Rate 20 Blood Pressure 135/84 138/87 123/90 Pulse Oximetry 99 95 Oxygen Delivery Room Air 08/11/22 17:00 08/11/22 17:30 08/11/22 17:45 Temperature Pulse Rate Respiratory Rate Blood Pressure Pulse Oximetry 96 96 97 Oxygen Delivery 08/11/22 20:35 08/12/22 00:19 08/12/22 06:00 Temperature 97 F L 97.6 F Pulse Rate 56 L 56 L Respiratory Rate 16 18 Blood Pressure 134/90 145/92 H Pulse Oximetry 100 100 Oxygen Delivery Room Air 08/12/22 09:46 Temperature Pulse Rate 61 Respiratory Rate Blood Pressure 146/89 H Pulse Oximetry 100 Oxygen Delivery Intake/Output Intake/Output: Intake & Output 08/09/22 08/10/22 08/11/22 08/12/22 23:59 23:59 23:59 23:59 Intake Total 1100 0 Output Total 200 Balance 1100 -200 Meds/Results Medications: Active
[2022-08-12 14:00] VITALS: BP 127/80; PULSE 60; RESP 18; TEMP 36.8; O2SAT 98
[2022-08-12] MEDS: SODIUM CHLORIDE 0.9% IV 1,000 ML 125 ML IV CONT (17:38)
[2022-08-12 22:00] VITALS: BP 119/75; PULSE 59; RESP 14; TEMP 36.1; O2SAT 95
[2022-08-13] MEDS: SODIUM CHLORIDE 0.9% IV 1,000 ML 125 ML IV CONT ×3 (01:38→19:15)
[2022-08-13 05:54] VITALS: BP 137/79; PULSE 57; RESP 14; TEMP 36.5; O2SAT 98
[2022-08-13 06:43] LABS: Basophils Absolute Auto 0.1 K/mm3 (0.0-0.1); Basophils Percent Auto 0.9 % (0.2-1.2); Eosinophils Absolute Auto 0.2 K/mm3 (0-0.3); Eosinophils Percent Auto 2.1 % (0-4.4); Hematocrit 39.5 % (37.0-47.0); Hemoglobin 13.3 g/dL (12.0-15.0); Immature Granulocyte Absolute 0.02 K/mm3 (0.00-0.031); Immature Granulocyte Percent A 0.3 % (0-0.5); Lymphocytes Absolute Auto 1.98 K/mm3 (0.9-3.2); Lymphocytes Percent Auto 26.3 % (18.3-44.2); Mean Corpuscular HGB Conc 33.7 g/dl (32-36); Mean Corpuscular Hemoglobin 29.3 pg (26-34); Mean Platelet Volume 10.9 fl (7.4-10.4); Monocytes Absolute Auto 0.4 K/mm3 (0.1-0.6); Monocytes Percent Auto 5.3 % (2.6-8.5); Neutrophils Absolute Auto 4.9 K/mm3 (1.3-6.7); Neutrophils Percent Auto 65.1 % (45.5-73.1); Platelet Count Result 244 k/mm3 (150-375); Red Blood Count 4.54 M/mm3 (4.2-5.4); Red Cell Distribution Width 12.7 % (11.5-14.5); White Blood Count 7.5 K/mm3 (4.5-10.0)
[2022-08-13 07:05] LABS: Lactic Acid Reflex 0.7 mmol/L (0.7-2.0)
[2022-08-13 07:17] LABS: Alanine Aminotransferase 322 U/L (6-35); Albumin Level 3.6 g/dL (3.5-5.1); Alkaline Phosphatase 148 U/L (38-126); Anion Gap 9 mmol/L (8-16); Aspartate Amino Transferase 145 U/L (14-36); Bilirubin,Total 2.5 mg/dL (0.2-1.3); Blood Urea Nitrogen 8 mg/dL (7-17); CRP 1.3 mg/dL (<1.0); Calcium 8.1 mg/dL (8.4-10.2); Carbon Dioxide 25 mmol/L (22-30); Chloride 102 mmol/L (98-107); Estimated CRCL calculation 114 ml/min; Estimated Glomerular Filt Rate > 60; Glucose 79 mg/dL (65-110); Lactate Dehydrogenase 195 U/L (120-246); Lipase 64 U/L (23-300); Magnesium 1.8 mg/dL (1.6-2.3); Potassium 3.5 mmol/L (3.4-5.0); Sodium 136 mmol/L (137-145)
[2022-08-13] MEDS: hydroCHLOROthiazide 25 MG TABLET PO (08:42)
[2022-08-13] MEDS: ESCITALOPRAM OXALATE 10 MG TABLET 20 MG PO (08:42)
[2022-08-13] MEDS: lisinopriL 20 MG TABLET 40 MG PO (08:43)
--- NOTE | 2022-08-13 10:38 | WPDGIPROGNO ---
Progress Note: A&P Assessment and Plan (1) Transaminitis: Code(s): R74.01 - Elevation of levels of liver transaminase levels Status: Acute Assessment and Plan: The liver enzymes have improved today. The MRCP does however show choledocholithiasis. I again went over ERCP with her. Will schedule that to be done tomorrow (2) Cholelithiases: Code(s): K80.20 - Calculus of gallbladder without cholecystitis without obstruction Status: Acute Assessment and Plan: She has known about gallstones for most of the past year but was hesitant about seen a surgeon because she had postoperative complications after a Caesarean section. (3) Abdominal pain: Code(s): R10.9 - Unspecified abdominal pain Status: Acute Assessment and Plan: pain is better. She understands that it would probably be worse if she tried to eat (4) GERD (gastroesophageal reflux disease): Code(s): K21.9 - Gastro-esophageal reflux disease without esophagitis Status: Acute Subjective Date/time seen: Moriah Corona is a 36 year old female ? Who was admitted last evening with abdominal pain and vomiting.? The patient states that she has had gallbladder attacks a past year or so.? She did have an ultrasound 8 or 9 months ago that did show gallstones and she had actually been referred at 1 time to a surgeon.? Usually her attacks would look her towards evening but more recently they would occur as well during the day and last anywhere from a few minutes to up to 1 hour.? Is generally a bandlike discomfort and tightness across her? upper abdomen and around her torso at the lower thoracic area.? She had had pizza 2 days ago and became uncomfortable with pain primarily in the upper right side.? She? went to an emergency room in [place] but waited so long to get seen that she went home because the pain had subsided by that time.? On arrival yesterday she had pain that had been going on for longer period of time.? She also was vomiting on when she had some pain she has noticed that her urine is darker particularly take a more so than yesterday she has never had liver disease in the past.? I note that when she was seen in our emergency room her bilirubin was normal AST 58 and ALT 43.? At this time they are all approximately 10 times elevated with AST 594, ALT 497, and now the alkaline phosphatase is elevated.? Her bilirubin is 4.1.? Lipase is normal. ? She has otherwise no gastrointestinal complaints.? Her weight is stable.? She denies dysphagia or chronic heartburn, she denies change in bowel habits.? She is not aware of any family history of gallbladder disease ?CT scan of the abdomen showed: 1. Cholelithiasis. No evidence of acute cholecystitis. 2. Small sliding hiatal hernia. ?I have personally reviewed the CT scan.? Ultrasound also shows only gallstones and no dilated bile duct. 08/13/22 10:38 Her pain is a little better. She thinks her urine is less dark also. MRI does show choledocholithiasis as expected. I again discussed ERCP with her and told her we will scheduled that for tomorrow morning. Review of Systems Review of Systems: All systems reviewed & are unremarkable except as noted in HPI and below Exam Const: General: healthy appearing, alert, awake and Physically active Nutritional Appearance: overweight Orientation/consciousness: patient oriented x3 Resp: Auscultation: clear to auscultation bilaterally Cardio: Rhythm: regular rhythm GI: GI Palp: Yes Soft to palpation, Yes Tenderness to palpation present (GI) ( Mildly tender epigastric area) and Yes No hepatosplenomegaly present Auscultation: normal bowel sounds Neuro: General: patient oriented x3 Objective Data Vital Signs Vital Signs: Vital Signs - 24 hr 08/12/22 14:00 08/12/22 22:00 08/13/22 05:54 Temperature 36.8 C 36.1 C L 36.5 C Pulse Rate 60 59 L 57 L Respiratory Rate 18 14 14 Blood Pressure 127/80 119/75 137/79 Pulse Oximetry 98 95 9
--- NOTE | 2022-08-13 10:44 | PM.PNGS ---
Progress Note: A&P Assessment and Plan (1) Calculus gallbladder and bile duct w/acute cholecystitis and obstructn: Code(s): K80.63 - Calculus of gallbladder and bile duct with acute cholecystitis with obstruction Status: Acute Assessment and Plan: I reviewed the MRCP. Patient has evidence of choledocholithiasis. Will await ERCP by GI. (2) Hyperbilirubinemia: Code(s): E80.6 - Other disorders of bilirubin metabolism Status: Acute (3) Transaminitis: Code(s): R74.01 - Elevation of levels of liver transaminase levels Status: Acute Subjective Subjective Date/Time Seen: 08/13/22 10:44 Interval history: Still having some occasional pain but overall feeling better. No nausea or vomiting pain. Exam Resp: Effort & Inspection: normal respiratory effort Auscultation: clear to auscultation bilaterally Cardio: Rate: regular rate Rhythm: regular rhythm Heart sounds: S1 normal heart sound present and S2 normal heart sound present GI: Inspection: non-distended and obesity GI Palp: Yes Soft to palpation and Yes Tenderness to palpation present (GI) (minimal RUQ) Objective Data Vital Signs Vital Signs: Vital Signs - 24 hr 08/12/22 14:00 08/12/22 22:00 08/13/22 05:54 Temperature 36.8 C 36.1 C L 36.5 C Pulse Rate 60 59 L 57 L Respiratory Rate 18 14 14 Blood Pressure 127/80 119/75 137/79 Pulse Oximetry 98 95 98 Intake/Output Intake/Output: Intake & Output 08/10/22 08/11/22 08/12/22 08/13/22 23:59 23:59 23:59 23:59 Intake Total 1100 1000 2000 Output Total 1050 1250 Balance 1100 -50 750 Meds/Results Medications: Active Medications Generic Name Dose Route Start Last Admin Trade Name Freq PRN Reason Stop Dose Admin Escitalopram Oxalate 20 mg 08/12/22 09:00 08/13/22 08:42 Escitalopram Oxalate 10 Mg Tablet PO 20 mg DAILY BAILEY Administration Hydrochlorothiazide 25 mg 08/12/22 09:00 08/13/22 08:42 Hydrochlorothiazide 25 Mg Tablet PO 25 mg QAM BAILEY Administration Sodium Chloride 1,000 mls @ 125 mls/hr 08/11/22 18:50 08/13/22 09:17 Normal Saline Iv IV CONT 125 mls/hr .Q8H BAILEY Administration Acetaminophen 1,000 mg in 100 mls @ 400 mls/hr 08/13/22 08:48 08/13/22 09:12 Ofirmev 1,000 Mg Ivpb IVPB 08/14/22 08:47 400 mls/hr Q6H PRN Administration Pain Rated 4-6 Indomethacin 100 mg 08/13/22 11:00 Indomethacin 50 Mg Supp.Rect RECTAL 08/13/22 11:01 ONCE ONE Lisinopril 40 mg 08/12/22 09:00 08/13/22 08:43 Lisinopril 20 Mg Tablet PO 40 mg DAILY BAILEY Administration Morphine Sulfate 4 mg 08/11/22 18:46 Morphine Sulfate (*Crx) 4 Mg/Ml Inj IV PUSH Q2H PRN Pain Rated 7-10 Ondansetron HCl 4 mg 08/11/22 18:46 Ondansetron Inj 4 Mg/2 Ml Vial IV PUSH Q4H PRN Nausea Radiology Results: ITS Impressions Upper Quadrant Ultrasound 08/11/22 17:04 IMPRESSION: 1. Cholelithiasis without additional findings of cholecystitis. MRCP 08/12/22 21:40 IMPRESSION: 1. Choledocholithiasis and mild common duct dilatation. 2. Cholelithiasis and gallbladder distention. No gallbladder wall thickening to suggest acute cholecystitis. Labs Labs: Laboratory Results - last 24 hr 08/13/22 08/13/22 08/13/22 06:36 06:36 06:36 WBC 7.5 RBC 4.54 Hgb 13.3 Hct 39.5 MCV 87.0 MCH 29.3 MCHC 33.7 RDW 12.7 Plt Count 244 MPV 10.9 H Immature Gran % (Auto) 0.3 Neut % (Auto) 65.1 Lymph % (Auto) 26.3 [place] % (Auto) 5.3 Eos % (Auto) 2.1 Baso % (Auto) 0.9 Lymph # (Auto) 1.98 [place] # (Auto) 0.4 Eos # (Auto) 0.2 Baso # (Auto) 0.1 Abs Immat Gran (auto) 0.02 Absolute Neuts (auto) 4.9 Absolute Nucleated RBC 0.0 Nucleated RBC % 0.0 Sodium 136 L Potassium 3.5 Chloride 102 Carbon Dioxide 25 Anion Gap 9 BUN 8 Creatinine 0.70 Estim Creat Clear Calc 114 Estimated GFR > 60 Glucose 79
--- NOTE | 2022-08-13 12:10 | PM.IMPN ---
Progress Note: A&P Assessment and Plan (1) Cholelithiases: Code(s): K80.20 - Calculus of gallbladder without cholecystitis without obstruction Status: Acute Assessment and Plan: - surgery has been consulted. The patient has had several bouts of gallbladder attacks throughout the year. - GI has been consulted as well due to the elevated liver enzymes. - Plan is for MRCP followed by possible ERCP and lap Marcela in next couple of days. - Continue with IV fluids - NPO except for medications. - continue with analgesics - MRCP From last evening demonstrated choledocholithiasis. - Patient have ERCP in the morning. - On or about Sunday of this week patient will have lap cholecystectomy. - Patient's diet has been changed to clear liquid for now. - She is to be NPO after midnight. (2) Transaminitis: Code(s): R74.01 - Elevation of levels of liver transaminase levels Status: Acute Assessment and Plan: - MRCP has been performed and demonstrates choledocholithiasis. She has ERCP scheduled for tomorrow. - GI Is managing. - There is been interval decrease in transaminases as well as bilirubin although they still remain elevated. (3) Anxiety: Code(s): F41.9 - Anxiety disorder, unspecified Status: Acute Assessment and Plan: - resume Lexapro (4) HTN (hypertension): Code(s): I10 - Essential (primary) hypertension Status: Acute Assessment and Plan: - resume hydrochlorothiazide and lisinopril Time Spent With Patient Time with patient: 15 - 25 minutes Subjective Date/time seen: 08/13/22 0940 This patient was evaluated today at the bedside status post having MRCP last evening that demonstrated choledocholithiasis. patient will have ERCP tomorrow morning. I have increased her diet to clear liquids until then. In the interim time she has been evaluated by both GI as well as General surgery, and general surgery is indicated they will take her to the operating room on Sunday for a cholecystectomy. Patient has controlled pain at this time. She has no fevers she has no nausea she has no vomiting. She has had interval decrease in her transaminases as well as her bilirubin. Although they still remain elevated, they are much less. She has no symptoms to report today such as chest pain, dyspnea. Review of Systems Review of Systems: All systems reviewed & are unremarkable except as noted in HPI and below Exam Const: General: comfortable and no acute distress HENMT: General nose exam: Normal nares present Mouth: Yes moist mucous membranes Eyes: General: appearance normal, both eyes and all related structures Sclera: sclerae normal Pupils: Equal, round and reactive pupils present EOM: EOMs intact bilaterally Neck: Neck: supple and no JVD Lymphatic: lymphadenopathy not noted Resp: Effort & Inspection: normal respiratory effort Auscultation: clear to auscultation bilaterally Cardio: Rate: regular rate Rhythm: regular rhythm Heart sounds: no gallops, no murmurs and no rubs GI: Inspection: non-distended Auscultation: normal bowel sounds Skin: General skin exam: normal color, no rashes or lesions noted and no erythema Lesions: no lesions noted Rashes: no rashes noted Wounds: no wounds Neuro: General: No gait normal Cranial nerves: Yes Equal, round and reactive pupils present Speech: normal speech Motor exam (neuro): 5/5 motor strength present throughout and Normal motor muscle tone present throughout Sensory Exam: No normal sensation Extrem: General: normal to inspection, no edema and no pedal edema Psych: Mental Status: mental status grossly normal Objective Data Vital Signs Vital Signs: Vital Signs - 24 hr 08/12/22 14:00 08/12/22 22:00 08/13/22 05:54 Temperature 98.2 F 97.0 F L 97.7 F Pulse Rate 60 59 L 57 L Respiratory Rate 18 14 14 Blood Pressure 127/80 119/75 137/79 Pulse Oximetry 98 95 98 Intake/Output Intake/Output:
[2022-08-13 14:10] VITALS: BP 122/73; PULSE 52; RESP 14; TEMP 36.6; O2SAT 96
[2022-08-13 20:49] VITALS: BP 138/93; PULSE 58; RESP 16; TEMP 36.6; O2SAT 98
[2022-08-14] VITALS (13 sets, daily range): BP systolic 112–152; BP diastolic 66–106; PULSE 50–100; RESP 12–24; TEMP 36.2–37.1; O2SAT 98–100
[2022-08-14] MEDS: SODIUM CHLORIDE 0.9% IV 1,000 ML 125 ML IV CONT ×3 (02:38→22:45)
[2022-08-14 06:52] LABS: Basophils Absolute Auto 0.1 K/mm3 (0.0-0.1); Basophils Percent Auto 1.4 % (0.2-1.2); Eosinophils Absolute Auto 0.2 K/mm3 (0-0.3); Eosinophils Percent Auto 2.7 % (0-4.4); Hematocrit 39.4 % (37.0-47.0); Hemoglobin 13.3 g/dL (12.0-15.0); Immature Granulocyte Absolute 0.01 K/mm3 (0.00-0.031); Immature Granulocyte Percent A 0.2 % (0-0.5); Lymphocytes Absolute Auto 2.23 K/mm3 (0.9-3.2); Lymphocytes Percent Auto 33.7 % (18.3-44.2); Mean Corpuscular HGB Conc 33.8 g/dl (32-36); Mean Corpuscular Hemoglobin 29.4 pg (26-34); Monocytes Absolute Auto 0.5 K/mm3 (0.1-0.6); Monocytes Percent Auto 6.8 % (2.6-8.5); Neutrophils Absolute Auto 3.7 K/mm3 (1.3-6.7); Neutrophils Percent Auto 55.2 % (45.5-73.1); Platelet Count Result 255 k/mm3 (150-375); Red Blood Count 4.53 M/mm3 (4.2-5.4); Red Cell Distribution Width 12.7 % (11.5-14.5); White Blood Count 6.6 K/mm3 (4.5-10.0)
[2022-08-14 07:03] LABS: Alanine Aminotransferase 223 U/L (6-35); Albumin Level 3.7 g/dL (3.5-5.1); Alkaline Phosphatase 120 U/L (38-126); Anion Gap 8 mmol/L (8-16); Aspartate Amino Transferase 69 U/L (14-36); Bilirubin,Total 1.5 mg/dL (0.2-1.3); Blood Urea Nitrogen 4 mg/dL (7-17); Calcium 8.2 mg/dL (8.4-10.2); Carbon Dioxide 29 mmol/L (22-30); Chloride 101 mmol/L (98-107); Estimated CRCL calculation 131 ml/min; Estimated Glomerular Filt Rate > 60; Glucose 92 mg/dL (65-110); Magnesium 1.9 mg/dL (1.6-2.3); Potassium 3.4 mmol/L (3.4-5.0); Sodium 138 mmol/L (137-145)
[2022-08-14] MEDS: ONDANSETRON INJ 4 MG/2 ML VIAL IV PUSH ×3 (07:57→19:57)
[2022-08-14] MEDS: lisinopriL 20 MG TABLET 40 MG PO (08:09)
[2022-08-14] MEDS: ESCITALOPRAM OXALATE 10 MG TABLET 20 MG PO (08:09)
[2022-08-14] MEDS: hydroCHLOROthiazide 25 MG TABLET PO (08:09)
--- NOTE | 2022-08-14 12:53 | PM.IMPN ---
Progress Note: A&P Assessment and Plan (1) Cholelithiases: Code(s): K80.20 - Calculus of gallbladder without cholecystitis without obstruction Status: Acute Assessment and Plan: - surgery has been consulted. The patient has had several bouts of gallbladder attacks throughout the year. - GI has been consulted as well due to the elevated liver enzymes. - Plan is for MRCP followed by possible ERCP and lap Marcela in next couple of days. - Continue with IV fluids - NPO except for medications. - continue with analgesics - MRCP From last evening demonstrated choledocholithiasis. - Patient have ERCP in the morning. - On or about Sunday of this week patient will have lap cholecystectomy. - Patient's diet has been changed to clear liquid for now. - She is to be NPO after midnight. - 08/14: ERCP today, cholecystectomy tomorrow. (2) Transaminitis: Code(s): R74.01 - Elevation of levels of liver transaminase levels Status: Acute Assessment and Plan: - MRCP has been performed and demonstrates choledocholithiasis. She has ERCP scheduled for tomorrow. - GI Is managing. - There is been interval decrease in transaminases as well as bilirubin although they still remain elevated. - 08/14: Interval improvement although still elevated with regards to both transaminases as well as Bilirubin. Continue IVF. Pain meds prn. (3) Anxiety: Code(s): F41.9 - Anxiety disorder, unspecified Status: Acute Assessment and Plan: - resume Lexapro (4) HTN (hypertension): Code(s): I10 - Essential (primary) hypertension Status: Acute Assessment and Plan: - resume hydrochlorothiazide and lisinopril Time Spent With Patient Time with patient: 15 - 25 minutes Subjective Date/time seen: 08/14/22 0953 Pt. was examined at the bedside today in interval assessment. She is having ERCP today. She has no current pain/N/V and she will be having Cholecystectomy tomorrow. No further complaints. Review of Systems Review of Systems: All systems reviewed & are unremarkable except as noted in HPI and below Exam Const: General: comfortable and no acute distress HENMT: General nose exam: Normal nares present Mouth: Yes moist mucous membranes Eyes: General: appearance normal, both eyes and all related structures Sclera: sclerae normal Pupils: Equal, round and reactive pupils present EOM: EOMs intact bilaterally Neck: Neck: supple and no JVD Lymphatic: lymphadenopathy not noted Resp: Effort & Inspection: normal respiratory effort Auscultation: clear to auscultation bilaterally Cardio: Rate: regular rate Rhythm: regular rhythm Heart sounds: no gallops, no murmurs and no rubs GI: Inspection: non-distended Auscultation: normal bowel sounds Skin: General skin exam: normal color, no rashes or lesions noted and no erythema Lesions: no lesions noted Rashes: no rashes noted Wounds: no wounds Neuro: General: No gait normal Cranial nerves: Yes Equal, round and reactive pupils present Speech: normal speech Motor exam (neuro): 5/5 motor strength present throughout and Normal motor muscle tone present throughout Sensory Exam: No normal sensation Extrem: General: normal to inspection, no edema and no pedal edema Psych: Mental Status: mental status grossly normal Objective Data Vital Signs Vital Signs: Vital Signs - 24 hr 08/13/22 14:10 08/13/22 20:49 08/13/22 20:00 Temperature 98 F 97.8 F Pulse Rate 52 L 58 L Respiratory Rate 14 16 Blood Pressure 122/73 138/93 H Pulse Oximetry 96 98 Oxygen Delivery Room Air 08/14/22 06:00 08/14/22 11:05 Temperature 97.3 F L Pulse Rate 50 L Respiratory Rate 16 Blood Pressure 132/85 Pulse Oximetry 98 Oxygen Delivery Room Air Intake/Output Intake/Output: Intake & Output 08/11/22 08/12/22 08/13/22 08/14/22 23:59 23:59 23:59 23:59 Intake Total 1100 1000 4150 2550 Output Total 1050 2850 2200 Balance 1100 -50 13
--- NOTE | 2022-08-14 14:20 | WPDANESEPPF ---
Anes - Initial Pre Proc Eval Procedure: Operation Date: 08/14/22 15:00 Proposed Procedures p Endoscopic Retro Cholangiopancreatogram - Raman Gilbert MD Date/Time: 08/14/22 14:20 Surgeon: SYEDA Odom Pre Op Diagnosis: transaminitis,cholelithiasis Patient Data Age: 36 Gender: F Height: 1.63 m Weight: 110.6 kg Last Vital Signs Temp 97.7 F 08/14/22 13:49 Pulse 54 L 08/14/22 13:49 Resp 20 08/14/22 13:49 BP 138/88 08/14/22 13:49 Pulse Ox 98 08/14/22 13:49 O2 Del Method Room Air 08/14/22 11:05 Allergies Allergy/AdvReac Type Severity Reaction Status Date / Time No Known Allergies Allergy Verified 08/14/22 14:19 Home Medications Medication Instructions Recorded Confirmed Type escitalopram oxalate 20 mg tablet 20 mg PO DAILY 08/04/21 08/11/22 History (Lexapro) hydrochlorothiazide 12.5 mg tablet 25 mg PO DAILY 08/04/21 08/11/22 History lisinopril 40 mg tablet 40 mg PO DAILY 08/04/21 08/11/22 History Laboratory Tests 08/14/22 08/14/22 06:33 06:33 WBC 6.6 K/mm3 K/mm3 (4.5-10.0) RBC 4.53 M/mm3 M/mm3 (4.2-5.4) Hgb 13.3 g/dL g/dL (12.0-15.0) Hct 39.4 % % (37.0-47.0) MCV 87.0 fl fl (80-100) MCH 29.4 pg pg (26-34) MCHC 33.8 g/dl g/dl (32-36) RDW 12.7 % % (11.5-14.5) Plt Count 255 k/mm3 k/mm3 (150-375) MPV 11.0 fl H fl (7.4-10.4) Immature Gran % (Auto) 0.2 % % (0-0.5) Neut % (Auto) 55.2 % % (45.5-73.1) Lymph % (Auto) 33.7 % % (18.3-44.2) [place] % (Auto) 6.8 % % (2.6-8.5) Eos % (Auto) 2.7 % % (0-4.4) Baso % (Auto) 1.4 % H % (0.2-1.2) Lymph # (Auto) 2.23 K/mm3 K/mm3 (0.9-3.2) [place] # (Auto) 0.5 K/mm3 K/mm3 (0.1-0.6) Eos # (Auto) 0.2 K/mm3 K/mm3 (0-0.3) Baso # (Auto) 0.1 K/mm3 K/mm3 (0.0-0.1) Abs Immat Gran (auto) 0.01 K/mm3 K/mm3 (0.00-0.031) Absolute Neuts (auto) 3.7 K/mm3 K/mm3 (1.3-6.7) Absolute Nucleated RBC 0.0 K/mm3 K/mm3 (0.0-0.012) Nucleated RBC % 0.0 % % (0.0-0.2) Sodium 138 mmol/L mmol/L (137-145) Potassium 3.4 mmol/L mmol/L (3.4-5.0) Chloride 101 mmol/L mmol/L (98-107) Carbon Dioxide 29 mmol/L mmol/L (22-30) Anion Gap 8 mmol/L mmol/L (8-16) BUN 4 mg/dL L mg/dL (7-17) Creatinine 0.60 mg/dL L mg/dL (0.7-1.0) Estim Creat Clear Calc 131 ml/min ml/min Estimated GFR > 60 (59 - ) Glucose 92 mg/dL mg/dL (65-110) Calcium 8.2 mg/dL L mg/dL (8.4-10.2) Magnesium 1.9 mg/dL mg/dL (1.6-2.3) Total Bilirubin 1.5 mg/dL H mg/dL (0.2-1.3) AST 69 U/L H U/L (14-36) ALT 223 U/L H U/L (6-35) Alkaline Phosphatase 120 U/L U/L (38-126) Total Protein 7.0 g/dL g/dL (6.3-8.2) Albumin 3.7 g/dL g/dL (3.5-5.1) Patient hx anesthesia problems: none Family hx anesthesia problems: none Results Review: All pre-operative results and documents have been reviewed as part of the pre-operative evaluation. [facility] Past Medical History Medical History Abdominal pain Anxiety Cholelithiases Dysphagia GERD (gastroesophageal reflux disease) HTN (hypertension) Obese KRISTINA (obstructive sleep apnea) she does not wear her CPAP machine she has an oral apparatus. Surgical History Surgical History H/O abdominal surgery due to postop postop complication H/O tubal ligation H/O: X3 Hx of tonsillectomy Family History Family History Father Diabetes mellitus Sibling Hypertension Asthma Social History Social History Social History: the patient is and lives with her
[2022-08-14] MEDS: LACTATED RINGERS 1,000 ML 150 ML IV CONT (14:24)
[2022-08-14] MEDS: INDOMETHACIN 50 MG SUPP.RECT 100 MG RECTAL (15:22)
[2022-08-14] MEDS: diphenhydrAMINE HCl INJ 50 MG/ML VIAL 25 MG IV PUSH (16:26)
--- NOTE | 2022-08-14 16:39 | SUR.PHASEII ---
Pt to recovery at 1607. Drowsy. Lungs clear and diminished. [address] Harrell made aware. Orders received. 1640 Pt resting comfortably.
--- NOTE | 2022-08-14 16:40 | PM.PNGS ---
Progress Note: A&P Assessment and Plan (1) Calculus gallbladder and bile duct w/acute cholecystitis and obstructn: Code(s): K80.63 - Calculus of gallbladder and bile duct with acute cholecystitis with obstruction Status: Acute Assessment and Plan: ERCP today was successful with sphincterotomy and stone extraction. Will proceed with lap angelika tomorrow by Dr. Momin. Discussed the procedure, risks, benefits, and expected recovery with the patient. All questions were answered and she agrees to proceed. NPO after midnight. (2) Hyperbilirubinemia: Code(s): E80.6 - Other disorders of bilirubin metabolism Status: Acute (3) Transaminitis: Code(s): R74.01 - Elevation of levels of liver transaminase levels Status: Acute Plan I have discussed the patient's case and plan of care with Dr. Momin. Subjective Subjective Date/Time Seen: 08/14/22 13:40 Patient reports: no new complaints Interval history: Patient seen and examined. Plan for ERCP today. She is currently NPO. No nausea, vomiting, or abdominal pain at this time. Exam Const: General: No acute distress Orientation/consciousness: patient oriented x3 GI: Inspection: non-distended and obesity GI Palp: Yes Soft to palpation, Yes Tenderness to palpation present (GI) (mild in RUQ, reportedly improved) and No Guarding due to palpation present (GI) Auscultation: normal bowel sounds Objective Data Vital Signs Vital Signs: Vital Signs - 24 hr 08/13/22 20:49 08/13/22 20:00 08/14/22 06:00 Temperature 97.8 F 97.3 F L Pulse Rate 58 L 50 L Respiratory Rate 16 16 Blood Pressure 138/93 H 132/85 Pulse Oximetry 98 98 Oxygen Delivery Room Air Oxygen Flow Rate 08/14/22 11:05 08/14/22 13:49 08/14/22 14:22 Temperature 97.7 F 98.5 F Pulse Rate 54 L 59 L Respiratory Rate 20 16 Blood Pressure 138/88 145/106 H Pulse Oximetry 98 100 Oxygen Delivery Room Air Room Air Oxygen Flow Rate 08/14/22 16:07 08/14/22 16:17 08/14/22 16:37 Temperature 98.6 F Pulse Rate 91 70 63 Respiratory Rate 19 20 17 Blood Pressure 139/97 H 143/83 H 139/88 Pulse Oximetry 100 100 100 Oxygen Delivery Simple Face Mask Simple Face Mask Nasal Cannula Oxygen Flow Rate 10 10 4 08/14/22 16:27 Temperature Pulse Rate 75 Respiratory Rate 12 Blood Pressure 127/76 Pulse Oximetry 100 Oxygen Delivery Nasal Cannula Oxygen Flow Rate 4 Intake/Output Intake/Output: Intake & Output 08/11/22 08/12/22 08/13/22 08/14/22 23:59 23:59 23:59 23:59 Intake Total 1100 1000 4150 2550 Output Total 1050 2850 2200 Balance 1100 -50 1300 350 Meds/Results Medications: Active Medications Generic Name Dose Route Start Last Admin Trade Name Freq PRN Reason Stop Dose Admin Diphenhydramine HCl 25 mg 08/14/22 16:21 08/14/22 16:26 Diphenhydramine Hcl Inj 50 Mg/Ml Vial IV PUSH 25 mg ONCE PRN Administration nausea Escitalopram Oxalate 20 mg 08/12/22 09:00 08/14/22 08:09 Escitalopram Oxalate 10 Mg Tablet PO 20 mg DAILY BAILEY Administration Hydrochlorothiazide 25 mg 08/12/22 09:00 08/14/22 08:09 Hydrochlorothiazide 25 Mg Tablet PO 25 mg QAM BAILEY Administration Sodium Chloride 1,000 mls @ 125 mls/hr 08/11/22 18:50 08/14/22 10:59 Normal Saline Iv IV CONT 125 mls/hr .Q8H BAILEY Administration Lactated Ringer's 1,000 mls @ 150 mls/hr 08/14/22 14:05 08/14/22 16:06 Lr - Lactated Ringers Iv IV CONT 150 mls/hr .Q6H40M BAILEY Infusion Lisinopril 40 mg 08/12/22 09:00 08/14/22 08:09 Lisinopril 20 Mg Tablet PO 40 mg DAILY BAILEY Administration Morphine Sulfate 4 mg 08/11/22 18:46 Morphine Sulfate (*Crx) 4 Mg/Ml Inj IV PUSH Q2H PRN Pain Rated 7-10 Ondansetron HCl 4 mg 08/11/22 18:46 08/14/22 07:57 Ondansetron Inj 4 Mg/2 Ml Vial IV PUSH 4 mg Q4H PRN Administration Nausea Scopolamine 1.5 mg 08/14/22 16:45 Scopolamine 1.5 Mg Patch TRANSDERM 08/14/22 16:4
--- NOTE | 2022-08-14 16:53 | SUR.PHASEII ---
1652 Pt continues to be nauseated. Was able to eat some ice chips. Dr. Harrell made aware. No new orders at this time unless pt is having severe N/V.
[2022-08-14] MEDS: SCOPOLAMINE 1.5 MG PATCH TRANSDERM (17:44)
--- NOTE | 2022-08-14 19:50 | ECG_ITS ---
Measurements Intervals [place] Rate: 58 P: 63 MD: 168 QRS: 58 QRSD: 84 T: 87 QT: 470 QTc: 464 Interpretive Statements SINUS BRADYCARDIA BASELINE WANDER- II, III, AVR, AVL, AVF, V1-V6 BORDERLINE ECG COMPARED TO ECG 12/31/2021 18:02:54 HEART RATE HAS DECREASED Electronically Signed On 08-15-2022 6:55:36 CDT by Jed Null D.O.
[2022-08-14] MEDS: MORPHINE SULFATE (*CRX) 4 MG/ML INJ IV PUSH (19:57)
[2022-08-14] MEDS: TRIMETHOBENZAMIDE HCL 200 MG/2 ML VIAL IM (20:21)
[2022-08-14 20:29] LABS: Hemoglobin 15.9 g/dL (12.0-15.0); Mean Corpuscular HGB Conc 34.6 g/dl (32-36); Mean Corpuscular Hemoglobin 29.4 pg (26-34); Platelet Count Result 441 k/mm3 (150-375); Red Blood Count 5.41 M/mm3 (4.2-5.4); Red Cell Distribution Width 12.9 % (11.5-14.5); White Blood Count 19.5 K/mm3 (4.5-10.0)
[2022-08-14] MEDS: HYDROmorphone HCL INJ (*CRX) 1 MG/ML SYR IV PUSH (20:31)
[2022-08-14 20:38] LABS: Lactic Acid Reflex 3.6 mmol/L (0.7-2.0)
[2022-08-14 20:39] LABS: Anion Gap 16 mmol/L (8-16); Blood Urea Nitrogen 6 mg/dL (7-17); Calcium 8.9 mg/dL (8.4-10.2); Carbon Dioxide 18 mmol/L (22-30); Chloride 100 mmol/L (98-107); Estimated CRCL calculation 114 ml/min; Estimated Glomerular Filt Rate > 60; Glucose 153 mg/dL (65-110); Potassium 3.1 mmol/L (3.4-5.0); Sodium 134 mmol/L (137-145)
[2022-08-14] MEDS: RIVASTIGMINE TARTRATE 1.5 MG CAPSULE PO (20:49)
[2022-08-14 21:00] LABS: Troponin I 0.086 ng/mL (0.000-0.034)
--- NOTE | 2022-08-14 21:18 | PM.EVENT ---
Event Note Event Note Event Note: A rapid response was called after patient used the toilet became distressed with bilateral hands contracture severe epigastric pain nausea but no vomiting not feeling well hurting all over. subjective: I am not feeling well and having a lot of pain objective: patient is in bed sitting in semi upright position, looking ill. vitals: blood pressure 130/80 pulse ox 100% on room air respiratory rate 18 pulse 60 general: Patient is sitting in bed in semi upright position legs up in the bed eyes are closed looks uncomfortable and ill obese. HEENT: Atraumatic normocephalic PERRLA, EOM intact, no JVD supple no lymphadenopathy. respiratory: Clear to auscultation bilaterally no wheezes rhonchi or crackles cardiovascular: S1-S2 heard no murmur rubs or gallops abdomen: Large pannus, obesity, soft, no rebound tenderness. Nontender no hepatosplenomegaly. extremity: No edema, no clubbing, no cyanosis. Central nervous system: Awake alert oriented x3 cranial nerves II-XII grossly intact no sensorimotor deficit ASSESSMENT AND PLAN: NEAR SYNCOPE: Suspect patient has been in the hospital in bed a scopolamine patch recently started had episode after using toilet also chest pain epigastric pain a stat CBC BMP lactic acid chest x-ray EKG. lactic acid slightly elevated patient started on broad-spectrum antibiotics blood cultures ordered chest x-ray no acute cardiopulmonary abnormality a scopolamine patch discontinued troponins came back abnormal will repeat at 3 and 6 hours EKG with no acute changes rivastigmine 1.5 mg p.o. once as antidote for scopolamine supportive care continue to monitor
[2022-08-14] MEDS: POTASSIUM CHLORIDE INJ 40 MEQ in SODIUM CHLORIDE 0.9% IV 500 ML 130 MEQ IVPB (21:42)
[2022-08-14 21:46] LABS: Glucose Point of Care 151 mg/dl (65-105)
[2022-08-14] MEDS: HYDROmorphone HCL INJ (*CRX) 1 MG/ML SYR 0.5 MG IV PUSH (22:44)
[2022-08-14 23:26] LABS: Reflex Lactic Acid Yes or No Add Lactic
[2022-08-14 23:58] LABS: Lactic Acid 1.4 mmol/L (0.7-2.0)
[2022-08-15] VITALS (14 sets, daily range): BP systolic 114–141; BP diastolic 68–81; PULSE 58–130; RESP 18–28; TEMP 35.9–36.6; O2SAT 94–97
[2022-08-15] MEDS: HYDROmorphone HCL INJ (*CRX) 1 MG/ML SYR IV PUSH ×4 (00:02→06:05)
[2022-08-15] MEDS: TRIMETHOBENZAMIDE HCL 200 MG/2 ML VIAL IM ×2 (00:02→11:07)
[2022-08-15 02:28] LABS: Hematocrit 46.7 % (37.0-47.0); Hemoglobin 16.1 g/dL (12.0-15.0); Mean Corpuscular HGB Conc 34.5 g/dl (32-36); Mean Corpuscular Hemoglobin 29.7 pg (26-34); Mean Platelet Volume 10.6 fl (7.4-10.4); Platelet Count Result 384 k/mm3 (150-375); Red Blood Count 5.43 M/mm3 (4.2-5.4); White Blood Count 21.4 K/mm3 (4.5-10.0)
[2022-08-15] MEDS: ONDANSETRON INJ 4 MG/2 ML VIAL IV PUSH ×2 (02:32→07:48)
[2022-08-15 02:38] LABS: Alanine Aminotransferase 191 U/L (6-35); Albumin Level 3.7 g/dL (3.5-5.1); Alkaline Phosphatase 119 U/L (38-126); Anion Gap 13 mmol/L (8-16); Aspartate Amino Transferase 85 U/L (14-36); Bilirubin,Total 1.4 mg/dL (0.2-1.3); Blood Urea Nitrogen 6 mg/dL (7-17); Calcium 8.1 mg/dL (8.4-10.2); Carbon Dioxide 23 mmol/L (22-30); Chloride 98 mmol/L (98-107); Estimated CRCL calculation 114 ml/min; Estimated Glomerular Filt Rate > 60; Glucose 196 mg/dL (65-110); Potassium 3.8 mmol/L (3.4-5.0); Sodium 134 mmol/L (137-145)
[2022-08-15] MEDS: LORazepam INJ (*CRX) 2 MG/ML VIAL 1 MG IV PUSH ×2 (02:46→21:47)
[2022-08-15 03:07] LABS: Troponin I 0.071 ng/mL (0.000-0.034)
[2022-08-15] MEDS: SODIUM CHLORIDE 0.9% IV 1,000 ML 125 ML IV CONT ×3 (06:05→19:26)
--- NOTE | 2022-08-15 07:48 | WPDGIPROGNO ---
Progress Note: A&P Assessment and Plan (1) Transaminitis: Code(s): R74.01 - Elevation of levels of liver transaminase levels Status: Acute Assessment and Plan: The liver enzymes have improved today. The MRCP does however show choledocholithiasis. I again went over ERCP with her. Will schedule that to be done tomorrow 08/15/2022 bilirubin is 1.4. Transaminases are about the same. (2) Cholelithiases: Code(s): K80.20 - Calculus of gallbladder without cholecystitis without obstruction Status: Acute Assessment and Plan: She has known about gallstones for most of the past year but was hesitant about seen a surgeon because she had postoperative complications after a Caesarean section. 08/15/2022 sludge and small calculi were extracted with ERCP and sphincterotomy. (3) Abdominal pain: Code(s): R10.9 - Unspecified abdominal pain Status: Acute Assessment and Plan: pain is better. She understands that it would probably be worse if she tried to eat 08/15/2022 pain is worse today. Given the timing, I suspect she has an element of pancreatitis. Lipase is pending. She is hopeful that she will still have her gallbladder removed today Dilaudid 1 mg is not holding her pain very well. I will increase it to 2 mg. (4) GERD (gastroesophageal reflux disease): Code(s): K21.9 - Gastro-esophageal reflux disease without esophagitis Status: Acute Subjective Date/time seen: 08/15/22 07:48 She became nauseated and had generalized discomfort yesterday evening a few hours after her procedure. She states that her fingers guillermo up, dorene, this happened to her once before when she was having pains. EKG was done which was unremarkable. She is very nauseated and vomiting. She has generalized pain in her back and abdomen. NG has been placed but very little output so far Review of Systems Review of Systems: All systems reviewed & are unremarkable except as noted in HPI and below Exam Const: General: alert Nutritional Appearance: overweight Orientation/consciousness: patient oriented x3 Resp: Auscultation: clear to auscultation bilaterally Cardio: Rhythm: regular rhythm GI: GI Palp: Yes Soft to palpation, Yes Tenderness to palpation present (GI) (Generalized) and No Guarding due to palpation present (GI) Auscultation: Hypoactive bowel sounds present Skin: General skin exam: other (Warm and dry) Neuro: General: patient oriented x3 Objective Data Vital Signs Vital Signs: Vital Signs - 24 hr 08/14/22 11:05 08/14/22 13:49 08/14/22 14:22 Temperature 36.5 C 36.9 C Pulse Rate 54 L 59 L Respiratory Rate 20 16 Blood Pressure 138/88 145/106 H Pulse Oximetry 98 100 Oxygen Delivery Room Air Room Air Oxygen Flow Rate 08/14/22 16:07 08/14/22 16:17 08/14/22 16:37 Temperature 37.0 C Pulse Rate 91 70 63 Respiratory Rate 19 20 17 Blood Pressure 139/97 H 143/83 H 139/88 Pulse Oximetry 100 100 100 Oxygen Delivery Simple Face Mask Simple Face Mask Nasal Cannula Oxygen Flow Rate 10 10 4 08/14/22 16:47 08/14/22 16:57 08/14/22 16:27 Temperature Pulse Rate 60 78 75 Respiratory Rate 18 14 12 Blood Pressure 146/92 H 146/94 H 127/76 Pulse Oximetry 100 100 100 Oxygen Delivery Room Air Room Air Nasal Cannula Oxygen Flow Rate 4 08/14/22 18:18 08/14/22 18:19 08/14/22 18:19 Temperature 36.2 C L 36.3 C L 36.2 C L Pulse Rate 74 63 61 Respiratory Rate 18 20 20 Blood Pressure 119/88 128/81 128/85 Pulse Oximetry 100 98 98 Oxygen Delivery Oxygen Flow Rate 08/14/22 21:59 08/14/22 23:41 08/14/22 20:00 Temperature 36.8 C 37.1 C Pulse Rate 53 L 100 Respiratory Rate 20 24 H Blood Pressure 112/66 152/92 H Pulse Oximetry 100 100 Oxygen Delivery Room Air Room Air Oxygen Flow Rate 08/15/22 00:00 08/15/22 04:00 08/15/22 06:00 Temperature 36.6 C Pulse Rate 65 58 L 60 Respiratory Rate 18 Blood Pressure 134/76 Pulse Oximetry 94
[2022-08-15] MEDS: HYDROmorphone HCL INJ (*CRX) 1 MG/ML SYR 2 MG IV PUSH ×4 (08:13→20:19)
--- NOTE | 2022-08-15 08:42 | ECG_ITS ---
Measurements Intervals [place] Rate: 72 P: 44 MT: 153 QRS: 66 QRSD: 105 T: 95 QT: 439 QTc: 483 Interpretive Statements SINUS RHYTHM INFERIOR INFARCT, AGE INDETERMINATE NONSPECIFIC T-WAVE ABNORMALITY- HIGH LATERAL LEADS BASELINE ARTIFACT- V5 ABNORMAL ECG COMPARED TO ECG 08/14/2022 19:59:00 HEART RATE HAS INCREASED Electronically Signed On 08-15-2022 10:37:53 CDT by Jed Null D.O.
[2022-08-15 08:47] LABS: Lipase 8601 U/L (23-300)
[2022-08-15 09:05] LABS: Magnesium 1.7 mg/dL (1.6-2.3)
--- NOTE | 2022-08-15 09:06 | PM.PNGS ---
Progress Note: A&P Assessment and Plan (1) Post-ERCP acute pancreatitis: Code(s): K91.89 - Other postprocedural complications and disorders of digestive system; K85.90 - Acute pancreatitis without necrosis or infection, unspecified Status: Acute Assessment and Plan: Patient had a sudden onset of epigastric abdominal pain last night with nausea and vomiting. She is still complaining of nausea and upper abdominal pain this morning. Lipase is elevated to 8,600 s/p ERCP. Her WBC count has also jumped up yesterday and again today to 21,000. She was empirically started on IV Zosyn and blood cultures were drawn. Will cancel surgery for today to allow for further work-up of her elevated troponin, leukocytosis, and give some time for the pancreatitis to improve. Will start clear liquids. Plan to repeat labs tomorrow and plan surgery accordingly depending on how she is progressing. (2) Elevated troponin: Code(s): R77.8 - Other specified abnormalities of plasma proteins Status: Acute Assessment and Plan: Troponin mildly elevated x 3. Only with complaints of abdominal pain today, no chest pain. No hypotension noted overnight or from yesterday. Seems low risk for myocardial injury, but etiology of troponin elevation unclear. Discussed with Hospitalist who is repeating EKG. Could consider Cardiology consultation if felt appropriate by primary service. (3) Calculus gallbladder and bile duct w/acute cholecystitis and obstructn: Code(s): K80.63 - Calculus of gallbladder and bile duct with acute cholecystitis with obstruction Status: Acute (4) Hyperbilirubinemia: Code(s): E80.6 - Other disorders of bilirubin metabolism Status: Acute (5) Transaminitis: Code(s): R74.01 - Elevation of levels of liver transaminase levels Status: Acute Plan I have discussed the patient's case and plan of care with Dr. Momin. Subjective Subjective Date/Time Seen: 08/15/22 09:06 Patient reports: nausea, vomiting and afebrile Interval history: Patient seen and examined this morning. She had a rapid response called last night due to vomiting, epigastric pain, and chest pain. Patient states she felt nauseous and flushed, therefore she went into the bathroom and started vomiting. She had a sudden onset of epigastric abdominal pain in the bathroom with numbness and tingling of her hands and feet. She also felt like her hands became contracted and she could not ambulate independently. She called for help and staff got her back to bed. The numbness subsided, but she continued to have epigastric abdominal pain and nausea throughout the night. She has had multiple episodes of vomiting and once this morning. She also feels drowsy this morning and had not slept last night due to the pain. Review of Systems Review of Systems: All systems reviewed & are unremarkable except as noted in HPI and below Exam Const: General: tired appearing and uncomfortable Orientation/consciousness: patient oriented x3 Eyes: Pupils: Equal, round and reactive pupils present Resp: Effort & Inspection: normal respiratory effort Auscultation: clear to auscultation bilaterally Cardio: Rate: regular rate Rhythm: regular rhythm GI: Inspection: non-distended, obesity and no visible herniation GI Palp: Yes Soft to palpation, Yes Tenderness to palpation present (GI) (across upper abdomen), No Guarding due to palpation present (GI), Yes No hepatosplenomegaly present and No Rebound tenderness present Auscultation: normal bowel sounds Neuro: General: moves all extremities and no focal motor deficits Motor exam (neuro): 5/5 motor strength present throughout Extrem: General: normal to inspection, no calf tenderness and no edema Psych: Mental Status: mental status grossly normal Insight: Good insight present (Psych) Judgement: Good judgement present (Psych) Objective Data Vital Signs Vital Signs: Vital Signs - 24 hr 09/
[2022-08-15 10:11] LABS: Folic Acid 8.7 ng/mL (2.76->20)
--- NOTE | 2022-08-15 12:37 | PC.NURSE ---
pt. left floor at 12:[address] via stretcher. All IV's saline locked
--- NOTE | 2022-08-15 14:01 | P.PNIM_ITS ---
Progress Note: A&P Assessment and Plan (1) Calculus gallbladder and bile duct w/acute cholecystitis and obstructn: Code(s): K80.63 - Calculus of gallbladder and bile duct with acute cholecystitis with obstruction <Madalyn JOrlando Fong PA-C - Last Filed: 08/15/22 17:11> Status: Acute <Madalyn JOrlando Fong PA-C - Last Filed: 08/15/22 17:11> Assessment and Plan: patient presented with right upper quadrant pain. History of multiple gallbladder attacks over the course of the year * seen in consultation by General surgery and Gastroenterology * MRCP on 08/12 showed choledocholithiasis and mi, dial duct dilation and cholelithiasis with gallbladder distension * ERCP completed on 08/14 which showed choledocholithiasis with abnormal major papilla, s/p sphincterotomy and removal of small calculi/debris * laparoscopic cholecystectomy scheduled for today. This has been canceled due to pancreatitis * continue IV Zosyn * continue IV fluid * analgesics and antiemetics available as needed * clear liquid diet <Madalyn Fong PA-C - Last Filed: 08/15/22 17:11> (2) Post-ERCP acute pancreatitis: Code(s): K91.89 - Other postprocedural complications and disorders of digestive system; K85.90 - Acute pancreatitis without necrosis or infection, unspecified <Madalyn Fong PA-C - Last Filed: 08/15/22 17:11> Status: Acute <Madalyn DoniOrlando Fong PA-C - Last Filed: 08/15/22 17:11> Assessment and Plan: patient with onset of severe epigastric pain. Lipase elevated at 8600 today. * repeat CT scan completed today showed acute necrotic pancreatitis * See plan above * clear liquid diet, IV fluids, analgesics antiemetics as needed * trend lipase * continue IV Zosyn <Madalyn Fong, PA-C - Last Filed: 08/15/22 17:11> (3) Transaminitis: Code(s): R74.01 - Elevation of levels of liver transaminase levels <Madalyn Marta Fong, PA-C - Last Filed: 08/15/22 17:11> Status: Acute <Madalyn Marta Fong PA-C - Last Filed: 08/15/22 17:11> Assessment and Plan: felt to be secondary to above * total bilirubin 1.4 today. * ALT with downward trend, mild increase of AST * management as above * trend LFTs <Madalyn Fong PA-C - Last Filed: 08/15/22 17:11> (4) Elevated troponin: Code(s): R77.8 - Other specified abnormalities of plasma proteins <Madalyn Fong RANDA - Last Filed: 08/15/22 17:11> Status: Acute <Madalyn Fong PA-C - Last Filed: 08/15/22 17:11> Assessment and Plan: troponins evaluated on 08/14/2022 following rapid response evaluation of near-syncope * mildly elevated (0.086 --> 0.070) * given flat trend and lack of ischemic symptoms, ACS not suspected * EKG reviewed with supervising physician, Q-waves noted * given mild elevation with EKG changes in patient requiring surgery, will proceed with Cardiology consultation. recommendations are greatly appreciated. * Patient has no risk factors for perioperative cardiac complications <Madalyn Fong PA-C - Last Filed: 08/15/22 17:11> (5) HTN (hypertension): Code(s): I10 - Essential (primary) hypertension <Madalyn Corralfranca RANDA - Last Filed: 08/15/22 17:11> Status: Acute <Madalyn Fong RANDA - Last Filed: 08/15/22 17:11> Assessment and Plan: blood pressure reviewed and has been reasonably controlled. Last BP 134/76 * continue home hydrochlorothiazide-lisinopril <Madalyn MarionOrlando Ellisfranca RANDA - Last Filed: 08/15/22 17:11> Assessment and Plan: Nonspecific episode overnight on
--- NOTE | 2022-08-15 14:01 | PM.IMPN ---
Progress Note: A&P Assessment and Plan (1) Calculus gallbladder and bile duct w/acute cholecystitis and obstructn: Code(s): K80.63 - Calculus of gallbladder and bile duct with acute cholecystitis with obstruction <Madalyn Marta Fong PA-C - Last Filed: 08/15/22 17:11> Status: Acute <Madalyn JOrlando Fong, PA-C - Last Filed: 08/15/22 17:11> Assessment and Plan: patient presented with right upper quadrant pain. History of multiple gallbladder attacks over the course of the year seen in consultation by General surgery and Gastroenterology MRCP on 08/12 showed choledocholithiasis and mi, dial duct dilation and cholelithiasis with gallbladder distension ERCP completed on 08/14 which showed choledocholithiasis with abnormal major papilla, s/p sphincterotomy and removal of small calculi/debris laparoscopic cholecystectomy scheduled for today. This has been canceled due to pancreatitis continue IV Zosyn continue IV fluid analgesics and antiemetics available as needed clear liquid diet <Madalyn JOrlando Fong, PA-C - Last Filed: 08/15/22 17:11> (2) Post-ERCP acute pancreatitis: Code(s): K91.89 - Other postprocedural complications and disorders of digestive system; K85.90 - Acute pancreatitis without necrosis or infection, unspecified <Madalyn Fong, PA-C - Last Filed: 08/15/22 17:11> Status: Acute <Madalyn JOrlando Fong, PA-C - Last Filed: 08/15/22 17:11> Assessment and Plan: patient with onset of severe epigastric pain. Lipase elevated at [address] scan completed today showed acute necrotic pancreatitis See plan above clear liquid diet, IV fluids, analgesics antiemetics as needed trend lipase continue IV Zosyn <Madalyn Marta Fong, PA-C - Last Filed: 08/15/22 17:11> (3) Transaminitis: Code(s): R74.01 - Elevation of levels of liver transaminase levels <Madalyn JOrlando Fong, PA-C - Last Filed: 08/15/22 17:11> Status: Acute <Madalyn JOrlando Fong, PA-C - Last Filed: 08/15/22 17:11> Assessment and Plan: felt to be secondary to above total bilirubin 1.4 today. ALT with downward trend, mild increase of AST management as above trend LFTs <Madalyn Fong PA-C - Last Filed: 08/15/22 17:11> (4) Elevated troponin: Code(s): R77.8 - Other specified abnormalities of plasma proteins <Madalyn Fong RANDA - Last Filed: 08/15/22 17:11> Status: Acute <Madalyn Fong PA-C - Last Filed: 08/15/22 17:11> Assessment and Plan: troponins evaluated on 08/14/2022 following rapid response evaluation of near-syncope mildly elevated (0.086 --> 0.070) given flat trend and lack of ischemic symptoms, ACS not suspected EKG reviewed with supervising physician, Q-waves noted given mild elevation with EKG changes in patient requiring surgery, will proceed with Cardiology consultation. recommendations are greatly appreciated. Patient has no risk factors for perioperative cardiac complications <Madalyn Fong RANDA - Last Filed: 08/15/22 17:11> (5) HTN (hypertension): Code(s): I10 - Essential (primary) hypertension <Madalyn Corralfranca RANDA - Last Filed: 08/15/22 17:11> Status: Acute <Madalyn Fong PA-C - Last Filed: 08/15/22 17:11> Assessment and Plan: blood pressure reviewed and has been reasonably controlled. Last BP 134/76 continue home hydrochlorothiazide-lisinopril <Madalyn Corralfranca RANDA - Last Filed: 08/15/22 17:11> Assessment and Plan: Nonspecific episode overnight on 08/14/2022 evaluated by freight separator. Reported to be near syncopal episode per freight separator. Scopolamine patch was discontinued and given rivastigmine for reversal. Discontinued rivastigmine today. Laboratory workup was evaluated. Vital signs were stable. Patient attributes this to hyperventilation. Additionally, may have been related to effects of anesthesia following E
[2022-08-15] MEDS: PROMETHAZINE HCL 25 MG/ML AMPUL 12.5 MG IV PUSH ×2 (14:04→20:16)
--- NOTE | 2022-08-15 16:41 | PM.CNCAR ---
Assessment and Plan Assessment and plan (1) Elevated troponin: Code(s): R77.8 - Other specified abnormalities of plasma proteins Status: Acute Assessment and Plan: Her elevated troponin is not secondary to acute ACS. Is likely secondary to her severe systemic illness including pancreatitis (2) Abnormal EKG: Code(s): R94.31 - Abnormal electrocardiogram [ECG] [EKG] Status: Acute Assessment and Plan: She has nondiagnostic inferior Q-waves. These were present on previous EKG in December of 2021. They do not meet criteria for infarction. She has some nonspecific T-wave abnormalities in the high lateral leads. Will order a 2D echocardiogram Doppler. (3) HTN (hypertension): Code(s): I10 - Essential (primary) hypertension Status: Acute Assessment and Plan: Elevated but in pain also (4) Post-ERCP acute pancreatitis: Code(s): K91.89 - Other postprocedural complications and disorders of digestive system; K85.90 - Acute pancreatitis without necrosis or infection, unspecified Status: Acute Assessment and Plan: Significant. Currently nauseous and vomiting. Surgery following (5) Calculus gallbladder and bile duct w/acute cholecystitis and obstructn: Code(s): K80.63 - Calculus of gallbladder and bile duct with acute cholecystitis with obstruction Status: Acute Assessment and Plan: Surgery following History of Present Illness History of Present Illness Consult date/time: 08/15/22 16:41 Requesting physician: Madalyn Fong PA-C Reason For Visit: transaminitis,cholelithiasis Narrative: Service 08/15/2022 Reason consultation: Elevated troponins, possible surgery Requesting provider: Madalyn fong History: Patient is a 36-year-old female who has a history of cholelithiasis. She came to the hospital because she start developed more gallbladder pain. She had right upper quadrant pain. ERCP was done yesterday and unfortunately she has become more ill with acute pancreatitis. She had severe pain last night which led to an EKG which was slightly abnormal and troponins were drawn for unknown reasons but were also slightly elevated. Cardiology consultation is therefore requested. Patient states she typically does not have any chest pain at home. No syncope, presyncope, paroxysmal nocturnal dyspnea, orthopnea, edema. She has occasional palpitations which she relates her rhythm from PVCs. She currently is nauseated and throwing up. Review of Systems Review of Systems: All systems reviewed & are unremarkable except as noted in HPI and below Constitutional: Constitutional: Denies body ache(s) Eyes: Eyes: Denies blurry vision ENT: Reports Normal hearing present Cardiovascular: Cardiovascular: Denies diaphoresis Respiratory: Respiratory: Denies cough Gastrointestinal: Gastrointestinal: Reports abdominal pain Genitourinary: Genitourinary: Denies hematuria Musculoskeletal: Musculoskeletal: Denies back pain Integumentary/Breasts: Skin/Breast: Denies skin pain Neurologic: Denies Abnormal speech present Psychiatric: Psychiatric: Denies anxiety Endocrine: Endocrine: Denies excessive sweating Hematologic/Lymphatic: Hematologic/Lymphatic: Denies easy bleeding Allergic/Immunologic: Allergic/Immunologic: Reports GI upset with certain foods PMFSH Past Medical History Medical History Abdominal pain Anxiety Cholelithiases Dysphagia GERD (gastroesophageal reflux disease) HTN (hypertension) Obese KRISTINA (obstructive sleep apnea) she does not wear her CPAP machine she has an oral apparatus. Surgical History Surgical History H/O abdominal surgery due to postop postop complication H/O tubal ligation H/O: X3 Hx of tonsillectomy Family History Family History (Reviewed 08/15/22 @ 16:46 by Juanito
[2022-08-15 18:24] LABS: Lactic Acid Reflex 3.3 mmol/L (0.7-2.0)
[2022-08-15 21:10] LABS: Reflex Lactic Acid Yes or No Add Lactic
[2022-08-15 21:46] LABS: Lactic Acid 1.4 mmol/L (0.7-2.0)
[2022-08-15] MEDS: DEXTROSE 5%/LACTATED RINGERS 1,000 ML 150 ML IV CONT (21:47)
--- NOTE | 2022-08-15 22:52 | PC.NURSE ---
This patient, Moriah Corona, was received from [ [phone]] on 08/15/22 at 2024. Patient/family oriented to unit policies and routines
[2022-08-16] VITALS (19 sets, daily range): BP systolic 92–143; BP diastolic 54–90; PULSE 83–155; RESP 16–24; TEMP 36–36.8; O2SAT 93–98; BMI 41.8
--- NOTE | 2022-08-16 | ECHO_ITS ---
Patient Info Name: Moriah Corona Age: 36 years : 1985 Gender: Female Ht: 64 in Wt: 243 lbs BSA: 2.29 m2 HR: 100 bpm BP: 113 / 73 mmHg Heart Rhythm: Sinus Rhythm, Tachycardia Technical Quality: Fair Exam Date: 08/16/2022 2:55 PM Exam Location: [facility] Patient Status: Inpatient Admit Date: 08/13/2022 Staff Ordering Physician: Juanito Gutiérrez MD [employer] Generator Operator: Renee Galindo RDCS Attending Provider: Madalyn Fong PA-C Referring Physician: Brock BRAGA; Exam Type: CA echo doppler color flow Study Info Indications - elevated troponin Complete two-dimensional, color flow and Doppler transthoracic echocardiogram is performed. Summary 1. Complete two-dimensional, color flow and Doppler transthoracic echocardiogram is performed. 2. Left ventricular systolic function is hyperdynamic, estimated at >70%. 3. There is mildly increased left ventricular wall thickness. 4. The left ventricular diastolic function is grade I diastolic dysfunction. Left Ventricle Left ventricular chamber dimension is normal. Left ventricular systolic function is hyperdynamic, estimated at >70%. There is mildly increased left ventricular wall thickness. The left ventricular diastolic function is grade I diastolic dysfunction. Right Ventricle Right ventricular chamber dimension is normal. Right ventricular systolic function is normal. Left Atria Left atrial chamber dimension is normal. Right Atria Right atrial chamber dimension is normal. Aortic Valve The aortic valve is not well visualized. There is no aortic valve stenosis. There is no aortic valve regurgitation. Pulmonic Valve The pulmonic valve is not well visualized. There is trace pulmonic regurgitation. Mitral Valve The mitral valve has normal leaflets. There is no mitral valve stenosis. There is no mitral valve regurgitation. Tricuspid Valve The tricuspid valve leaflets are not well visualized. There is no significant tricuspid valve stenosis. There is trace tricuspid valve regurgitation. Pericardium/Pleural There is trivial pericardial effusion. Aorta The aortic root size at the sinus of Valsalva is normal. Left Ventricular Outflow Tract Name Value Normal LVOT 2D LVOT Diameter 1.9 cm LVOT Doppler LVOT Peak Gradient 6 mmHg LVOT Mean Gradient 3 mmHg LVOT VTI 16 cm LVOT VTI/AV VTI Ratio 0.8 LVOT Stroke Volume 46 ml LVOT CO 4.3 l/min LVOT CI 1.9 l/min/m2 Pulmonic Valve Name Value Normal RVOT Doppler RVOT Peak Gradient 3 mmHg PV Doppler PV Peak Grad
[2022-08-16] MEDS: HYDROmorphone HCL INJ (*CRX) 1 MG/ML SYR 2 MG IV PUSH ×5 (01:12→23:29)
[2022-08-16] MEDS: PROMETHAZINE HCL 25 MG/ML AMPUL 12.5 MG IV PUSH ×4 (01:49→23:12)
--- NOTE | 2022-08-16 02:02 | ECG_ITS ---
Measurements Intervals [place] Rate: 144 P: 38 HI: 145 QRS: 116 QRSD: 81 T: 70 QT: 300 QTc: 466 Interpretive Statements SINUS TACHYCARDIA RIGHT AXIS DEVIATION DELAYED PRECORDIAL R/S TRANSITION INFERIOR INFARCT, AGE INDETERMINATE BORDERLINE ST-T WAVE ABNORMALITY- HIGH LATERAL LEADS ABNORMAL ECG COMPARED TO ECG 08/15/2022 09:33:24 HEART RATE HAS INCREASED Electronically Signed On 08-16-2022 11:07:08 CDT by Jed Null D.O.
[2022-08-16 04:20] LABS: Hematocrit 41.5 % (37.0-47.0); Hemoglobin 13.5 g/dL (12.0-15.0); Mean Corpuscular HGB Conc 32.5 g/dl (32-36); Mean Corpuscular Hemoglobin 29.8 pg (26-34); Mean Corpuscular Volume 91.6 fl (80-100); Mean Platelet Volume 11.3 fl (7.4-10.4); Platelet Count Result 295 k/mm3 (150-375); Red Blood Count 4.53 M/mm3 (4.2-5.4); Red Cell Distribution Width 14.1 % (11.5-14.5)
[2022-08-16 04:50] LABS: Procalcitonin 0.7 ng/mL
[2022-08-16] MEDS: DEXTROSE 5%/LACTATED RINGERS 1,000 ML 150 ML IV CONT (04:58)
[2022-08-16 05:16] LABS: Lactic Acid Reflex 2.5 mmol/L (0.7-2.0)
[2022-08-16 05:17] LABS: Alanine Aminotransferase 95 U/L (6-35); Albumin Level 3.1 g/dL (3.5-5.1); Alkaline Phosphatase 94 U/L (38-126); Anion Gap 9 mmol/L (8-16); Aspartate Amino Transferase 40 U/L (14-36); Bilirubin,Total 1.6 mg/dL (0.2-1.3); Blood Urea Nitrogen 15 mg/dL (7-17); Calcium 6.8 mg/dL (8.4-10.2); Carbon Dioxide 20 mmol/L (22-30); Chloride 104 mmol/L (98-107); Estimated CRCL calculation 75 ml/min; Estimated Glomerular Filt Rate 56; Glucose 196 mg/dL (65-110); Potassium 3.8 mmol/L (3.4-5.0); Sodium 133 mmol/L (137-145)
[2022-08-16 05:24] LABS: Glucose Point of Care 217 mg/dl (65-105)
--- NOTE | 2022-08-16 06:58 | WPDGIPROGNO ---
Progress Note: A&P Assessment and Plan (1) Transaminitis: Code(s): R74.01 - Elevation of levels of liver transaminase levels Status: Acute Assessment and Plan: The liver enzymes have improved today. The MRCP does however show choledocholithiasis. I again went over ERCP with her. Will schedule that to be done tomorrow 08/15/2022 bilirubin is 1.4. Transaminases are about the same. 08/16/2022 AST down from 594 to 40 (2) Cholelithiases: Code(s): K80.20 - Calculus of gallbladder without cholecystitis without obstruction Status: Acute Assessment and Plan: She has known about gallstones for most of the past year but was hesitant about seen a surgeon because she had postoperative complications after a Caesarean section. 08/15/2022 sludge and small calculi were extracted with ERCP and sphincterotomy. (3) Abdominal pain: Code(s): R10.9 - Unspecified abdominal pain Status: Acute Assessment and Plan: pain is better. She understands that it would probably be worse if she tried to eat 08/15/2022 pain is worse today. Given the timing, I suspect she has an element of pancreatitis. Lipase is pending. She is hopeful that she will still have her gallbladder removed today Dilaudid 1 mg is not holding her pain very well. I will increase it to 2 mg. 08/16/2020 to pain is much better controlled today. Her abdomen is much less tender. (4) GERD (gastroesophageal reflux disease): Code(s): K21.9 - Gastro-esophageal reflux disease without esophagitis Status: Acute (5) Leukocytosis: Code(s): D72.829 - Elevated white blood cell count, unspecified Status: Acute Assessment and Plan: white blood count now of 30,000. She remains afebrile but this is concerning. She is covered with Primaxin procalcitonin level is normal. (6) Hypocalcemia: Code(s): E83.51 - Hypocalcemia Status: Acute Assessment and Plan: 08/16/2022 calcium has dropped from 8.1-6.8. I will check an ionized calcium level. Plan a discussed her case with Madalyn Fong, hospitalist, regarding her illness. States that Dr. Granger is on board now and we are all in agreement that it would be preferable for her to be treated at an institution with higher level of care. Subjective Date/time seen: 08/16/22 06:58 She states that her pain is better she is primarily nauseated and medications are not completely eradicating it. NG was placed last night but it came out shortly thereafter. She has had no vomiting overnight. She would like ice chips. She feels thirsty. I Explained that she cannot drink because she has ileus but I will let her have a few ice chips. I Discussed with her the fact that her pancreatitis is severe because of the CT findings and also because of leukocytosis. Therefore she would be best served at a tertiary care center. Exam Const: General: healthy appearing, alert, awake, Physically active and uncomfortable Nutritional Appearance: overweight Orientation/consciousness: patient oriented x3 Resp: Auscultation: clear to auscultation bilaterally Cardio: Rhythm: regular rhythm GI: GI Palp: Yes abdominal tenderness ( Mild and much less tender than yesterday, ) Auscultation: Hypoactive bowel sounds present Skin: General skin exam: other (Warm and dry) Neuro: General: patient oriented x3 Objective Data Vital Signs Vital Signs: Vital Signs - 24 hr 08/15/22 08:00 08/15/22 14:00 08/15/22 18:00 Temperature 36.2 C L 35.9 C L Pulse Rate 110 H 107 H Respiratory Rate 22 H 28 H Blood Pressure 119/80 141/79 H Pulse Oximetry 95 97 Oxygen Delivery Room Air Oxygen Flow Rate 08/15/22 08:00 08/15/22 12:00 08/15/22 16:00 Temperature Pulse Rate 69 76 99 Respiratory Rate Blood Pressure Pulse Oximetry Oxygen Delivery Oxygen Flow Rate 08/15/22 20:35 08/15/22 20:41 08/15/22 21:28 Temperature 36.4 C 36.5 C Puls
[2022-08-16 07:41] LABS: Lipase 6060 U/L (23-300)
[2022-08-16] MEDS: ESCITALOPRAM OXALATE 10 MG TABLET 20 MG PO (08:02)
--- NOTE | 2022-08-16 08:56 | PM.PNCARD ---
Progress Note: A&P Assessment and Plan (1) Elevated troponin: Code(s): R77.8 - Other specified abnormalities of plasma proteins Status: Acute Assessment and Plan: Her elevated troponin is not secondary to acute ACS. Is likely secondary to her severe systemic illness including pancreatitis (2) Abnormal EKG: Code(s): R94.31 - Abnormal electrocardiogram [ECG] [EKG] Status: Acute Assessment and Plan: She has nondiagnostic inferior Q-waves. These were present on previous EKG in December of 2021. They do not meet criteria for infarction. She has some nonspecific T-wave abnormalities in the high lateral leads. Echo pending (3) HTN (hypertension): Code(s): I10 - Essential (primary) hypertension Status: Acute Assessment and Plan: Elevated but in pain also (4) Post-ERCP acute pancreatitis: Code(s): K91.89 - Other postprocedural complications and disorders of digestive system; K85.90 - Acute pancreatitis without necrosis or infection, unspecified Status: Acute Assessment and Plan: Significant. Currently nauseous and vomiting. Surgery following (5) Calculus gallbladder and bile duct w/acute cholecystitis and obstructn: Code(s): K80.63 - Calculus of gallbladder and bile duct with acute cholecystitis with obstruction Status: Acute Assessment and Plan: Surgery following Subjective Date/time seen: 08/16/22 08:56 Interval history: 36-YEAR-OLD WITH cholelithiasis, now pancreatitis Date of service 08/16/2022: She denies any chest pain or shortness of breath. Review of Systems Review of Systems: All systems reviewed & are unremarkable except as noted in HPI and below Constitutional: Constitutional: Denies body ache(s) and Denies excessive sweating Eyes: Eyes: Denies blurry vision ENT: Reports Normal hearing present Cardiovascular: Cardiovascular: Denies diaphoresis Respiratory: Respiratory: Denies cough Gastrointestinal: Gastrointestinal: Reports abdominal pain Genitourinary: Genitourinary: Denies hematuria Musculoskeletal: Musculoskeletal: Denies back pain Integumentary/Breasts: Skin/Breast: Denies skin pain Neurologic: Reports Normal hearing present and Denies Abnormal speech present Psychiatric: Psychiatric: Denies anxiety Endocrine: Endocrine: Denies excessive sweating Hematologic/Lymphatic: Hematologic/Lymphatic: Denies easy bleeding Allergic/Immunologic: Allergic/Immunologic: Reports GI upset with certain foods Exam Narrative: Patient is awake and oriented appears to be in distress Const: General: in distress and uncomfortable HENMT: General nose exam: Normal nares present Mouth: Yes moist mucous membranes Eyes: Sclera: sclerae normal Neck: Neck: supple Carotids: no bruits Chest: Other: No reproducible chest wall pain to palpation Resp: Effort & Inspection: normal respiratory effort Auscultation: clear to auscultation bilaterally Cardio: Rate: regular rate Rhythm: regular rhythm Heart sounds: no murmurs GI: Inspection: non-distended Skin: General skin exam: normal color Neuro: Cranial nerves: Yes Normal hearing present Speech: normal speech and No Abnormal speech present Extrem: General: normal to inspection and no edema Psych: Mental Status: mental status grossly normal Objective Data Vital Signs Vital Signs: Vital Signs - 24 hr 08/15/22 14:00 08/15/22 18:00 08/15/22 12:00 Temperature 36.2 C L 35.9 C L Pulse Rate 110 H 107 H 76 Respiratory Rate 22 H 28 H Blood Pressure 119/80 141/79 H Pulse Oximetry 95 97 Oxygen Delivery Oxygen Flow Rate 08/15/22 16:00 08/15/22 20:35 08/15/22 20:41 Temperature 36.4 C 36.5 C Pulse Rate 99 106 H 106 H Respiratory Rate 18 18 Blood Pressure 124/81 124/81 Pulse Oximetry 96 96 Oxygen Delivery Oxygen Flow Rate 08/15/22 21:28 08/15/22 20:25 08/15/22 23:53 Temperature 36.4 C Pulse Rate 110 H Respira
--- NOTE | 2022-08-16 10:04 | P.PNIM_ITS ---
Progress Note: A&P Assessment and Plan (1) Post-ERCP acute pancreatitis: Code(s): K91.89 - Other postprocedural complications and disorders of digestive system; K85.90 - Acute pancreatitis without necrosis or infection, unspecified Status: Acute Assessment and Plan: Patient with onset of severe epigastric pain after ERCP. Lipase climbed to 8600. * Repeat Abd CT 07/15 showing acute necrotic pancreatitis and worsening moderate ascites. * [place] criteria after 48 hours is now 5. * White count to 38K today * Lipase trending downward to 6000. Procalcitonin level 0.7. LFTs improving except bili slightly higher. * Calcium 6.8 with albumin 3.1 (corrected 7.7). Will replace * Now with acute kidney injury. * Continue NPO status. Appreciate GI input. * Continue Primaxin and IV fluids. Will remove dextrose from the fluids. * GI feels patient should be transferred and transfer process has been started. Will discuss with district court reporter. (2) Calculus gallbladder and bile duct w/acute cholecystitis and obstructn: Code(s): K80.63 - Calculus of gallbladder and bile duct with acute cholecystitis with obstruction Status: Acute Assessment and Plan: Patient has had gallbladder colic for about 9 months with plans to see surgery for cholecystectomy. Patient presents here on 08/11 with acute abdominal pain and found have elevated LFTs. Lipase was normal at the time presentation. * MRCP on 08/12 showed choledocholithiasis and mild duct dilation and cholelithiasis with gallbladder distension * ERCP completed on 08/14 which showed choledocholithiasis with abnormal major papilla now s/p stone removal and sphincterotomy * General surgery and GI following. * Plan for cholecystectomy patient is more stable. (3) Transaminitis: Code(s): R74.01 - Elevation of levels of liver transaminase levels Status: Acute Assessment and Plan: LFTs elevated on admission related to choledocholithiasis. * AST 594 and ALT 495 on admission. These values are trending downward. * Total bilirubin was 4.1 on admission. This has improved but slightly higher today. * Continue to trend LFTs. (4) Hypoxic: Code(s): R09.02 - Hypoxemia Status: Acute Assessment and Plan: Now requiring 4L O2 but was 95% on room air at the time. Unclear if she was hypoxic but nothing documented. Will check CXR given exam findings. Check ABG. (5) Elevated troponin: Code(s): R77.8 - Other specified abnormalities of plasma proteins Status: Acute Assessment and Plan: Troponin was drawn on the evening of 08/14/22 following rapid response evaluation of near-syncope * Mildly elevated (0.086 --> 0.070) * Telemetry showing sinus tachycardia related to her acute pancreatitis * Patient does have nonspecific EKG changes in the high lateral leads. * Cardiology is following appreciate the input. * It is not felt that she has acute coronary syndrome. * Echocardiogram has been ordered. (6) HTN (hypertension): Code(s): I10 - Essential (primary) hypertension Status: Acute Assessment and Plan: Patient's blood pressure was reviewed on 08/16 Blood pressure soft overnight to 92/60 but better this morning. Will continue to home hydrochlorothiazide-lisinopril. Follow (7) Pre-syncope: Code(s): R55 - Syncope and collapse Status: Acute Assessment and Plan: Patient has an episode overnight on 08/14/2022 evaluated by clinical lab assistant. Reported to be near syncopal episode per clinical lab assistant. Scopolamine patch was discontinued an
--- NOTE | 2022-08-16 10:04 | PM.IMPN ---
Progress Note: A&P Assessment and Plan (1) Post-ERCP acute pancreatitis: Code(s): K91.89 - Other postprocedural complications and disorders of digestive system; K85.90 - Acute pancreatitis without necrosis or infection, unspecified Status: Acute Assessment and Plan: Patient with onset of severe epigastric pain after ERCP. Lipase climbed to 8600. Repeat Abd CT 07/15 showing acute necrotic pancreatitis and worsening moderate ascites. [place] criteria after 48 hours is now 5. White count to 38K today Lipase trending downward to 6000. Procalcitonin level 0.7. LFTs improving except bili slightly higher. Calcium 6.8 with albumin 3.1 (corrected 7.7). Will replace Now with acute kidney injury. Continue NPO status. Appreciate GI input. Continue Primaxin and IV fluids. Will remove dextrose from the fluids. GI feels patient should be transferred and transfer process has been started. Will discuss with medical support specialist. (2) Calculus gallbladder and bile duct w/acute cholecystitis and obstructn: Code(s): K80.63 - Calculus of gallbladder and bile duct with acute cholecystitis with obstruction Status: Acute Assessment and Plan: Patient has had gallbladder colic for about 9 months with plans to see surgery for cholecystectomy. Patient presents here on 08/11 with acute abdominal pain and found have elevated LFTs. Lipase was normal at the time presentation. MRCP on 08/12 showed choledocholithiasis and mild duct dilation and cholelithiasis with gallbladder distension ERCP completed on 08/14 which showed choledocholithiasis with abnormal major papilla now s/p stone removal and sphincterotomy General surgery and GI following. Plan for cholecystectomy patient is more stable. (3) Transaminitis: Code(s): R74.01 - Elevation of levels of liver transaminase levels Status: Acute Assessment and Plan: LFTs elevated on admission related to choledocholithiasis. AST 594 and ALT 495 on admission. These values are trending downward. Total bilirubin was 4.1 on admission. This has improved but slightly higher today. Continue to trend LFTs. (4) Hypoxic: Code(s): R09.02 - Hypoxemia Status: Acute Assessment and Plan: Now requiring 4L O2 but was 95% on room air at the time. Unclear if she was hypoxic but nothing documented. Will check CXR given exam findings. Check ABG. (5) Elevated troponin: Code(s): R77.8 - Other specified abnormalities of plasma proteins Status: Acute Assessment and Plan: Troponin was drawn on the evening of 08/14/22 following rapid response evaluation of near-syncope Mildly elevated (0.086 --> 0.070) Telemetry showing sinus tachycardia related to her acute pancreatitis Patient does have nonspecific EKG changes in the high lateral leads. Cardiology is following appreciate the input. It is not felt that she has acute coronary syndrome. Echocardiogram has been ordered. (6) HTN (hypertension): Code(s): I10 - Essential (primary) hypertension Status: Acute Assessment and Plan: Patient's blood pressure was reviewed on 08/16 Blood pressure soft overnight to 92/60 but better this morning. Will continue to home hydrochlorothiazide-lisinopril. Follow (7) Pre-syncope: Code(s): R55 - Syncope and collapse Status: Acute Assessment and Plan: Patient has an episode overnight on 08/14/2022 evaluated by demonstrator knitting. Reported to be near syncopal episode per demonstrator knitting. Scopolamine patch was discontinued and given rivastigmine for reversal. Discontinued rivastigmine 08/15. Laboratory workup was evaluated. Vital signs were stable. Patient attributed this to hyperventilation. Additionally, may have been related to effects of anesthesia following ERCP. Symptoms resolved with out recurrence. Plan DVT prophylaxis: SCDs Code status: Full Diet: NPO with ice chips. Discussed with medical support specialist an
[2022-08-16] MEDS: LACTATED RINGERS 1,000 ML 200 ML IV CONT (10:57)
[2022-08-16] MEDS: ONDANSETRON INJ 4 MG/2 ML VIAL IV PUSH ×3 (10:57→19:02)
[2022-08-16] MEDS: SODIUM CHLORIDE 0.9% IV 1,000 ML 999 ML IV CONT (11:19)
[2022-08-16 12:32] LABS: SARS-CoV-2 RNA PCR Negative
--- NOTE | 2022-08-16 12:36 | PM.PNGS ---
Progress Note: A&P Assessment and Plan (1) Post-ERCP acute pancreatitis: Code(s): K91.89 - Other postprocedural complications and disorders of digestive system; K85.90 - Acute pancreatitis without necrosis or infection, unspecified Status: Acute Assessment and Plan: CT abd/pelvis showed acute necrotizing pancreatitis. Lipase down slightly today to 6,000. WBC up to 38,000. Clinically, her pain seems a little better today but still having a lot of nausea with vomiting. GI is recommending transfer to a tertiary care facility. Discussed with the Hospitalist who is working on transfer. Will also be started on TPN today for nutrition. Continue IV fluids, analgesics, and bowel rest. No plans for surgery at this time due to her pancreatitis. (2) SIRS (systemic inflammatory response syndrome): Code(s): R65.10 - Systemic inflammatory response syndrome (SIRS) of non-infectious origin without acute organ dysfunction Status: Acute Assessment and Plan: SIRS criteria met. Secondary to the pancreatitis. WBC count up to 38,000, procalcitonin 0.7, lactic 2.5. Blood cx drawn on 08/14. Currently on IV Primaxin. (3) Calculus gallbladder and bile duct w/acute cholecystitis and obstructn: Code(s): K80.63 - Calculus of gallbladder and bile duct with acute cholecystitis with obstruction Status: Acute (4) Elevated troponin: Code(s): R77.8 - Other specified abnormalities of plasma proteins Status: Acute Assessment and Plan: Cardiology following, felt likely related to systemic illness. 2D echo ordered. (5) Hyperbilirubinemia: Code(s): E80.6 - Other disorders of bilirubin metabolism Status: Acute (6) Transaminitis: Code(s): R74.01 - Elevation of levels of liver transaminase levels Status: Acute Plan I have discussed the patient's case and plan of care with Dr. Momin. Subjective Subjective Date/Time Seen: 08/16/22 09:36 Patient reports: still having pain, no flatus, no bowel movement, nausea, vomiting and afebrile Interval history: Patient seen and examined. Main complaint is nausea and has had 1 episode of vomiting this morning. She is still having some upper abdominal pain, but feels it is possibly slightly better. She has since been moved to the IMU since I evaluated her yesterday. She was transferred after becoming tachycardic and had a slightly low blood pressure last night. GI has seen the patient this morning and they are working on transferring her to a tertiary care facility today. Hospitalist has spoke with [facility] and awaiting call back. Review of Systems Review of Systems: All systems reviewed & are unremarkable except as noted in HPI and below Exam Const: General: alert; No acute distress Nutritional Appearance: obese Orientation/consciousness: patient oriented x3 GI: Inspection: non-distended GI Palp: Yes Soft to palpation, Yes Tenderness to palpation present (GI) (diffusely tender, worse in upper abdomen) and No Guarding due to palpation present (GI) Auscultation: Hypoactive bowel sounds present Extrem: General: capillary refill normal and no edema Psych: Mental Status: mental status grossly normal Insight: Good insight present (Psych) Objective Data Vital Signs Vital Signs: Vital Signs - 24 hr 08/15/22 14:00 08/15/22 18:00 08/15/22 16:00 Temperature 97.1 F L 96.7 F L Pulse Rate 110 H 107 H 99 Respiratory Rate 22 H 28 H Blood Pressure 119/80 141/79 H Pulse Oximetry 95 97 Oxygen Delivery Oxygen Flow Rate 08/15/22 20:35 08/15/22 20:41 08/15/22 21:28 Temperature 97.6 F 97.7 F Pulse Rate 106 H 106 H Respiratory Rate 18 18 Blood Pressure 124/81 124/81 124/81 Pulse Oximetry 96 96 Oxygen Delivery Oxygen Flow Rate 08/15/22 20:25 08/15/22 23:53 08/15/22 20:30 Temperature 97.6 F Pulse Rate 110 H 130 H Respiratory Rate 20 Blood Pressure 114/68 Pulse Oximetry 96 Oxygen Delivery Room Air
[2022-08-16] MEDS: CALCIUM GLUCONATE 1,000 MG/10 ML VIAL 1000 MG IV PUSH (12:47)
[2022-08-16] MEDS: LIDOCAINE HCL 1% PF INJ 5 ML VIAL INFILTRATE (13:20)
[2022-08-16 14:13] LABS: Oxygen Saturation ABG 96.4 % (95.0-100.0)
[2022-08-16 14:15] LABS: Hematocrit 43.6 % (37.0-47.0); Mean Corpuscular HGB Conc 34.4 g/dl (32-36); Mean Corpuscular Volume 87.2 fl (80-100); Platelet Count Result 277 k/mm3 (150-375); Red Cell Distribution Width 14.2 % (11.5-14.5); White Blood Count 38.1 K/mm3 (4.5-10.0)
[2022-08-16 14:16] LABS: Alveolar/Arterial O2 Gradient 62.1 mmHg; Base Excess ABG -4.9 mEq/l (+/-2.0); Fractional Inspired Oxygen 24 %; Oxygen Content ABG 21.8 %vol (16.0-22.0); Oxyhemoglobin 95.9 % THb (90.0-100.0); PCO2 ABG 25.2 mmHg (35.0-45.0); PO2 FiO2 Ratio Arterial Blood 3.29 %; Total Hemoglobin 16.2 g/dL (12.0-18.0); pH ABG 7.448 (7.350-7.450)
[2022-08-16 14:17] LABS: Device NASAL CANNULA; Modified Allen's Test Pass; Site Drawn RIGHT RADIAL
[2022-08-16 14:28] LABS: Partial Thromboplastin Time 27.3 SECONDS (22.3-36.8)
[2022-08-16 14:35] LABS: Alanine Aminotransferase 72 U/L (6-35); Albumin Level 2.5 g/dL (3.5-5.1); Alkaline Phosphatase 77 U/L (38-126); Anion Gap 6 mmol/L (8-16); Aspartate Amino Transferase 36 U/L (14-36); Bilirubin,Total 1.5 mg/dL (0.2-1.3); Blood Urea Nitrogen 16 mg/dL (7-17); Calcium 6.5 mg/dL (8.4-10.2); Carbon Dioxide 21 mmol/L (22-30); Chloride 104 mmol/L (98-107); Estimated CRCL calculation 101 ml/min; Estimated Glomerular Filt Rate > 60; Glucose 144 mg/dL (65-110); Magnesium 1.3 mg/dL (1.6-2.3); Potassium 3.1 mmol/L (3.4-5.0); Sodium 131 mmol/L (137-145)
[2022-08-16 14:42] LABS: Transferrin 146 mg/dL (206-381)
[2022-08-16 14:48] LABS: Band Neutrophils Percent 11 % (0-6); Lymphocytes Absolute Manual 1.14 K/mm3 (1.1-4.5); Lymphocytes Percent Manual 3 % (18-44); Monocytes Absolute Manual 1.52 K/mm3 (0.1-0.90); Monocytes Percent Manual 4 % (3-9); Neutrophils Absolute Manual 35.43 K/mm3 (1.7-7.2); Neutrophils Percent Manual 82 % (46-73); Platelet Estimate Adequate (Adequate); Total Cells Counted 100
[2022-08-16 14:49] LABS: Schistocytes None Seen (NORMAL); Smudge Cells FEW
[2022-08-16] MEDS: AMINO ACIDS 5%/D15W/E-LYTES/CA 2,000 ML with MULTIVITAMINS-12 INJ VIAL 1 2.5 ML, MULTIV... 40 ML IV CONT (16:46)
[2022-08-16] MEDS: LACTATED RINGERS 1,000 ML 140 ML IV CONT (17:00)
[2022-08-16 17:29] LABS: Glucose Point of Care 153 mg/dl (65-105)
[2022-08-16] MEDS: MAGNESIUM SULF 2 GM/WATER 50ML 2 GM/50 ML BAG IVPB (20:35)
[2022-08-16] MEDS: KCL 20 MEQ/SW 100 ML 100 ML 50 MEQ IVPB (21:58)
[2022-08-16] MEDS: CENTRAL LINE FLUSH 10 ML IV PUSH (22:06)
[2022-08-17] VITALS (19 sets, daily range): BP systolic 111–129; BP diastolic 60–83; PULSE 104–129; RESP 18–31; TEMP 36.1–38.1; O2SAT 90–100
[2022-08-17] MEDS: LACTATED RINGERS 1,000 ML 140 ML IV CONT ×2 (00:31→08:56)
[2022-08-17 00:49] LABS: Glucose Point of Care 185 mg/dl (65-105)
[2022-08-17] MEDS: HYDROmorphone HCL INJ (*CRX) 1 MG/ML SYR 2 MG IV PUSH ×8 (01:41→23:22)
[2022-08-17] MEDS: ONDANSETRON INJ 4 MG/2 ML VIAL IV PUSH ×6 (01:43→23:23)
--- NOTE | 2022-08-17 03:05 | PCRCNOTE ---
RT spoke with RN about pt wearing hospital unit CPAP. RN stated the patient does wear CPAP at home but does not want to use a hospital issued CPAP.
[2022-08-17 04:53] LABS: Basophils Absolute Auto 0.1 K/mm3 (0.0-0.1); Basophils Percent Auto 0.3 % (0.2-1.2); Hematocrit 42.4 % (37.0-47.0); Hemoglobin 13.4 g/dL (12.0-15.0); Immature Granulocyte Absolute 1.38 K/mm3 (0.00-0.031); Lymphocytes Absolute Auto 1.26 K/mm3 (0.9-3.2); Lymphocytes Percent Auto 3.7 % (18.3-44.2); Mean Corpuscular HGB Conc 31.6 g/dl (32-36); Mean Corpuscular Hemoglobin 28.9 pg (26-34); Mean Corpuscular Volume 91.4 fl (80-100); Mean Platelet Volume 11.4 fl (7.4-10.4); Monocytes Absolute Auto 1.4 K/mm3 (0.1-0.6); Monocytes Percent Auto 4.1 % (2.6-8.5); Neutrophils Absolute Auto 30.3 K/mm3 (1.3-6.7); Neutrophils Percent Auto 87.9 % (45.5-73.1); Platelet Count Result 295 k/mm3 (150-375); Red Blood Count 4.64 M/mm3 (4.2-5.4); Red Cell Distribution Width 14.3 % (11.5-14.5); White Blood Count 34.5 K/mm3 (4.5-10.0)
[2022-08-17 05:02] LABS: Lactic Acid Reflex 1.1 mmol/L (0.7-2.0)
[2022-08-17 05:04] LABS: INR 1.4; Prothrombin Time 16.3 Seconds (11.1-14.7)
[2022-08-17] MEDS: CENTRAL LINE FLUSH 10 ML IV PUSH ×3 (06:00→21:58)
[2022-08-17 06:17] LABS: Glucose Point of Care 188 mg/dl (65-105)
[2022-08-17] MEDS: PROMETHAZINE HCL 25 MG/ML AMPUL 12.5 MG IV PUSH ×2 (07:50→21:48)
--- NOTE | 2022-08-17 09:09 | PM.PNGS ---
Progress Note: A&P Assessment and Plan (1) Post-ERCP acute pancreatitis: Code(s): K91.89 - Other postprocedural complications and disorders of digestive system; K85.90 - Acute pancreatitis without necrosis or infection, unspecified Status: Acute Assessment and Plan: Acute necrotizing pancreatitis s/p ERCP. Lipase pending. Abdominal pain is about the same today. Continue TPN, IV fluids, and analgesics. Continue to monitor with serial abdominal exams, labs. Some labs still pending this morning. Encouraged the patient to get up to trying working with nursing to get up in the chair today if pain is controlled and she feels she can tolerate it. (2) SIRS (systemic inflammatory response syndrome): Code(s): R65.10 - Systemic inflammatory response syndrome (SIRS) of non-infectious origin without acute organ dysfunction Status: Acute Assessment and Plan: Secondary to the pancreatitis. WBC down to 34,000. Lactic down to 1.1 today. Other labs pending this morning. Tachycardia improved, BP slightly low again last night but stable this morning. Blood cx drawn on 08/14, NGTD. Currently on IV Primaxin. (3) Calculus gallbladder and bile duct w/acute cholecystitis and obstructn: Code(s): K80.63 - Calculus of gallbladder and bile duct with acute cholecystitis with obstruction Status: Acute Assessment and Plan: Still holding off on cholecystectomy due to the pancreatitis. (4) Elevated troponin: Code(s): R77.8 - Other specified abnormalities of plasma proteins Status: Acute Assessment and Plan: Cardiology following, felt likely related to systemic illness. 2D echo pending. (5) Hyperbilirubinemia: Code(s): E80.6 - Other disorders of bilirubin metabolism Status: Acute Assessment and Plan: LFTs trending down. (6) Transaminitis: Code(s): R74.01 - Elevation of levels of liver transaminase levels Status: Acute Plan I have discussed the patient's case and plan of care with Dr. Momin. Subjective Subjective Date/Time Seen: 08/17/22 09:09 Patient reports: no flatus, no bowel movement, nausea and afebrile Interval history: Patient seen and examined. Reports feeling about the same today. Still having generalized abdominal pain and nausea. She feels her pain is the same but her nausea has improved some. She has not vomited since yesterday morning. She has not gotten out of bed since her urinary catheter was placed. She is sitting up in bed throughout the day but not getting up to chair or ambulating. No acute events overnight. Review of Systems Review of Systems: All systems reviewed & are unremarkable except as noted in HPI and below Exam Const: General: alert; No acute distress Orientation/consciousness: patient oriented x3 GI: Inspection: obesity and other (mildly distended) GI Palp: Yes Soft to palpation, Yes Tenderness to palpation present (GI) (diffusely tender, worse in the upper abdomen), Yes Guarding due to palpation present (GI) (upper abdomen) and No Rebound tenderness present Auscultation: Hypoactive bowel sounds present Urinary Catheter: Urinary Catheter: patent and draining and urine dark Psych: Mental Status: mental status grossly normal Insight: Good insight present (Psych) Objective Data Vital Signs Vital Signs: Vital Signs - 24 hr 08/16/22 12:00 08/16/22 11:03 08/16/22 12:00 Temperature 97.4 F L Pulse Rate 108 H 100 Respiratory Rate 24 H Blood Pressure 142/90 H Pulse Oximetry 95 96 Oxygen Delivery Oxygen Flow Rate 2 08/16/22 12:00 08/16/22 16:00 08/16/22 16:00 Temperature 98.2 F Pulse Rate 83 116 H Respiratory Rate 18 Blood Pressure 131/76 Pulse Oximetry 95 97 Oxygen Delivery Nasal Cannula Oxygen Flow Rate 2 08/16/22 16:00 08/16/22 18:00 08/16/22 14:00 Temperature Pulse Rate 118 H 86 Respiratory Rate Blood Pressure Pulse Oximetry 95 Oxygen Delivery Nasal Cannula
[2022-08-17 09:15] LABS: CRP 35.1 mg/dL (<1.0)
[2022-08-17 10:12] LABS: Alanine Aminotransferase 57 U/L (6-35); Albumin Level 2.6 g/dL (3.5-5.1); Alkaline Phosphatase 86 U/L (38-126); Anion Gap 7 mmol/L (8-16); Aspartate Amino Transferase 35 U/L (14-36); Bilirubin,Total 1.3 mg/dL (0.2-1.3); Blood Urea Nitrogen 14 mg/dL (7-17); Calcium 6.2 mg/dL (8.4-10.2); Carbon Dioxide 24 mmol/L (22-30); Chloride 103 mmol/L (98-107); Estimated CRCL calculation 131 ml/min; Estimated Glomerular Filt Rate > 60; Glucose 180 mg/dL (65-110); Lactate Dehydrogenase 496 U/L (120-246); Lipase 2717 U/L (23-300); Magnesium 1.9 mg/dL (1.6-2.3); Potassium 3.4 mmol/L (3.4-5.0); Sodium 134 mmol/L (137-145)
[2022-08-17 10:52] LABS: Triglycerides 99 mg/dL (<150)
[2022-08-17] MEDS: BISACODYL 10 MG SUPPOSITORY RECTAL (10:58)
[2022-08-17 11:55] LABS: Glucose Point of Care 194 mg/dl (65-105)
--- NOTE | 2022-08-17 12:32 | P.PNIM_ITS ---
Progress Note: A&P Assessment and Plan (1) Post-ERCP acute pancreatitis: Code(s): K91.89 - Other postprocedural complications and disorders of digestive system; K85.90 - Acute pancreatitis without necrosis or infection, unspecified Status: Acute Assessment and Plan: Patient with onset of severe epigastric pain after ERCP on 08/14. Lipase climbed to 8600. * Repeat Abd CT 08/15 showing acute necrotic pancreatitis and worsening moderate ascites. * [place] criteria after 48 hours was 5. * White count to better at 34.5K but now having fevers. Atelectisis? DVT? Infectious? Will check dopplers. Encourage IS use. * Lipase trending downward to 2700. LFTs improving * Calcium 6.2 with albumin 2.6 (corrected 7.6). No symptoms so will wait for iCa level * Phos 1.0 so will replace * TPN started. Enteral feeding recommended so if clinically better tomorrow, will trial oral or NGT feedings. * ANIVAL resolved. UOP still poor and fluid balance +12L. Follow * Continue NPO status. Appreciate GI and surgery input. Add popsicles (okay with surg) * Continue Primaxin and IV fluids. (2) Calculus gallbladder and bile duct w/acute cholecystitis and obstructn: Code(s): K80.63 - Calculus of gallbladder and bile duct with acute cholecystitis with obstruction Status: Acute Assessment and Plan: Patient had gallbladder colic for about 9 months with plans to see surgery for cholecystectomy. Patient presented here on 08/11 with acute abdominal pain and found have elevated LFTs. Lipase was normal at the time presentation. * MRCP on 08/12 showed choledocholithiasis and mild duct dilation and cholelithiasis with gallbladder distension * ERCP completed on 08/14 which showed choledocholithiasis with abnormal major papilla now s/p stone removal and sphincterotomy * General surgery and GI following. * Plan for cholecystectomy when patient is more stable. (3) Transaminitis: Code(s): R74.01 - Elevation of levels of liver transaminase levels Status: Acute Assessment and Plan: LFTs elevated on admission related to choledocholithiasis. * AST 594 and ALT 495 on admission. These values are trending downward. * Total bilirubin was 4.1 on admission. This has normallized * Continue to trend LFTs. (4) Hypoxic: Code(s): R09.02 - Hypoxemia Status: Acute Assessment and Plan: Now was requiring 4L O2 overnight 08/15-. She was 95% on room air at the time. Unclear if she was hypoxic but nothing documented. Able to wean O2 off. Encourage being out of bed and encourage IS. (5) Elevated troponin: Code(s): R77.8 - Other specified abnormalities of plasma proteins Status: Acute Assessment and Plan: Troponin was drawn on the evening of 08/14/22 following rapid response evaluation of near-syncope * Mildly elevated (0.086 --> 0.070) * Telemetry showing sinus tachycardia related to her acute pancreatitis * Patient does have nonspecific EKG changes in the high lateral leads. * Cardiology is following appreciate the input. * It is felt that she had elevated Trop related to the tachycarida but not acute coronary syndrome. * Echocardiogram pending (6) HTN (hypertension): Code(s): I10 - Essential (primary) hypertension Status: Acute Assessment and Plan: Patient's blood pressure was reviewed on 08/17 Blood pressure better controlled Will continue to home hydrochlorothiazide-lisinopril. Follow (7) Pre-syncope: Code(s): R55 - Syncope and collapse Status: Acute Assessment and Plan:
--- NOTE | 2022-08-17 12:32 | PM.IMPN ---
Progress Note: A&P Assessment and Plan (1) Post-ERCP acute pancreatitis: Code(s): K91.89 - Other postprocedural complications and disorders of digestive system; K85.90 - Acute pancreatitis without necrosis or infection, unspecified Status: Acute Assessment and Plan: Patient with onset of severe epigastric pain after ERCP on 08/14. Lipase climbed to 8600. Repeat Abd CT 08/15 showing acute necrotic pancreatitis and worsening moderate ascites. [place] criteria after 48 hours was 5. White count to better at 34.5K but now having fevers. Atelectisis? DVT? Infectious? Will check dopplers. Encourage IS use. Lipase trending downward to 2700. LFTs improving Calcium 6.2 with albumin 2.6 (corrected 7.6). No symptoms so will wait for iCa level Phos 1.0 so will replace TPN started. Enteral feeding recommended so if clinically better tomorrow, will trial oral or NGT feedings. ANIVAL resolved. UOP still poor and fluid balance +12L. Follow Continue NPO status. Appreciate GI and surgery input. Add popsicles (okay with surg) Continue Primaxin and IV fluids. (2) Calculus gallbladder and bile duct w/acute cholecystitis and obstructn: Code(s): K80.63 - Calculus of gallbladder and bile duct with acute cholecystitis with obstruction Status: Acute Assessment and Plan: Patient had gallbladder colic for about 9 months with plans to see surgery for cholecystectomy. Patient presented here on 08/11 with acute abdominal pain and found have elevated LFTs. Lipase was normal at the time presentation. MRCP on 08/12 showed choledocholithiasis and mild duct dilation and cholelithiasis with gallbladder distension ERCP completed on 08/14 which showed choledocholithiasis with abnormal major papilla now s/p stone removal and sphincterotomy General surgery and GI following. Plan for cholecystectomy when patient is more stable. (3) Transaminitis: Code(s): R74.01 - Elevation of levels of liver transaminase levels Status: Acute Assessment and Plan: LFTs elevated on admission related to choledocholithiasis. AST 594 and ALT 495 on admission. These values are trending downward. Total bilirubin was 4.1 on admission. This has normallized Continue to trend LFTs. (4) Hypoxic: Code(s): R09.02 - Hypoxemia Status: Acute Assessment and Plan: Now was requiring 4L O2 overnight 08/15-. She was 95% on room air at the time. Unclear if she was hypoxic but nothing documented. Able to wean O2 off. Encourage being out of bed and encourage IS. (5) Elevated troponin: Code(s): R77.8 - Other specified abnormalities of plasma proteins Status: Acute Assessment and Plan: Troponin was drawn on the evening of 08/14/22 following rapid response evaluation of near-syncope Mildly elevated (0.086 --> 0.070) Telemetry showing sinus tachycardia related to her acute pancreatitis Patient does have nonspecific EKG changes in the high lateral leads. Cardiology is following appreciate the input. It is felt that she had elevated Trop related to the tachycarida but not acute coronary syndrome. Echocardiogram pending (6) HTN (hypertension): Code(s): I10 - Essential (primary) hypertension Status: Acute Assessment and Plan: Patient's blood pressure was reviewed on 08/17 Blood pressure better controlled Will continue to home hydrochlorothiazide-lisinopril. Follow (7) Pre-syncope: Code(s): R55 - Syncope and collapse Status: Acute Assessment and Plan: Patient has an episode overnight on 08/14/2022 evaluated by supervisor sawmill. Reported to be near syncopal episode per supervisor sawmill. Scopolamine patch was discontinued and given rivastigmine for reversal. Discontinued rivastigmine 08/15. Laboratory workup was evaluated. Vital signs were stable. Patient attributed this to hyperventilation. Additionally, may have been related to effects of anesthesia following ERCP
[2022-08-17] MEDS: ENOXAPARIN 40 MG/0.4 ML SYRINGE SUB-Q (13:55)
[2022-08-17] MEDS: SODIUM PHOSPHATE 20 MM in DEXTROSE 5% IN WATER 250 ML 50 MM IVPB (13:57)
--- NOTE | 2022-08-17 14:19 | WPDGIPROGNO ---
Progress Note: A&P Assessment and Plan (1) Transaminitis: Code(s): R74.01 - Elevation of levels of liver transaminase levels Status: Acute Assessment and Plan: The liver enzymes have improved today. The MRCP does however show choledocholithiasis. I again went over ERCP with her. Will schedule that to be done tomorrow 08/15/2022 bilirubin is 1.4. Transaminases are about the same. 08/16/2022 AST down from 594 to 40 (2) Cholelithiases: Code(s): K80.20 - Calculus of gallbladder without cholecystitis without obstruction Status: Acute Assessment and Plan: She has known about gallstones for most of the past year but was hesitant about seen a surgeon because she had postoperative complications after a Caesarean section. 08/15/2022 sludge and small calculi were extracted with ERCP and sphincterotomy. (3) Abdominal pain: Code(s): R10.9 - Unspecified abdominal pain Status: Acute Assessment and Plan: pain is better. She understands that it would probably be worse if she tried to eat 08/15/2022 pain is worse today. Given the timing, I suspect she has an element of pancreatitis. Lipase is pending. She is hopeful that she will still have her gallbladder removed today Dilaudid 1 mg is not holding her pain very well. I will increase it to 2 mg. 08/16/2020 to pain is much better controlled today. Her abdomen is much less tender. 08/17/2022 no significant difference in her pain except that she is able to go a little further between doses of analgesics. (4) GERD (gastroesophageal reflux disease): Code(s): K21.9 - Gastro-esophageal reflux disease without esophagitis Status: Acute (5) Leukocytosis: Code(s): D72.829 - Elevated white blood cell count, unspecified Status: Acute Assessment and Plan: white blood count now of 30,000. She remains afebrile but this is concerning. She is covered with Primaxin procalcitonin level is normal. 08/17/2022 white blood count remains elevated. She is covered for possible infection with Primaxin. (6) Hypocalcemia: Code(s): E83.51 - Hypocalcemia Status: Acute Assessment and Plan: 08/16/2022 calcium has dropped from 8.1-6.8. I will check an ionized calcium level. Plan I discussed her case with Dr. Granger who is managing her hyperalimentation. He had spoken to staff at [facility], who declined to take her as a transfer stating that they would do the same that we could do here. I discussed her case with Ene Chairez. the patient has not been ambulating or moving about and is therefore at risk for deep vein thrombosis. She will be started on Lovenox and encouraged to get out of bed. Subjective Date/time seen: 08/17/22 14:19 she continues to have pain requiring Dilaudid every 2 or 3 hours. Nausea is constant but a little better today. She had had a suppository but did not pass any stool or gas has of yet. She does feel distended and feels that she would feel better if she could pass some. She has been started on TPN managed by Dr. Granger. Exam Const: General: healthy appearing, alert, awake, Physically active and uncomfortable Nutritional Appearance: overweight Orientation/consciousness: patient oriented x3 Resp: Auscultation: clear to auscultation bilaterally Cardio: Rhythm: regular rhythm GI: GI Palp: Yes abdominal tenderness ( Mild and much less tender than yesterday, ) Auscultation: Hypoactive bowel sounds present Skin: General skin exam: other (Warm and dry) Neuro: General: patient oriented x3 Objective Data Vital Signs Vital Signs: Vital Signs - 24 hr 08/16/22 16:00 08/16/22 16:00 08/16/22 16:00 Temperature 36.8 C Pulse Rate 83 116 H Respiratory Rate 18 Blood Pressure 131/76 Pulse Oximetry 97 95 Oxygen Delivery Nasal Cannula Oxygen Flow Rate 1 08/16/22 18:00 08/16/22 20:00 08/16/22 20:00 Temperature 36.5 C Pu
[2022-08-17] MEDS: AMINO ACIDS 5%/D15W/E-LYTES/CA 2,000 ML with MULTIVITAMINS-12 INJ VIAL 1 2.5 ML, MULTIV... 40 ML IV CONT (15:35)
[2022-08-17 17:06] LABS: Glucose Point of Care 190 mg/dl (65-105)
[2022-08-17 17:55] LABS: Basophils Absolute Auto 0.1 K/mm3 (0.0-0.1); Basophils Percent Auto 0.2 % (0.2-1.2); Eosinophils Percent Auto 0.1 % (0-4.4); Hematocrit 38.7 % (37.0-47.0); Hemoglobin 13.1 g/dL (12.0-15.0); Immature Granulocyte Absolute 0.17 K/mm3 (0.00-0.031); Immature Granulocyte Percent A 0.6 % (0-0.5); Lymphocytes Absolute Auto 1.13 K/mm3 (0.9-3.2); Lymphocytes Percent Auto 3.9 % (18.3-44.2); Mean Corpuscular HGB Conc 33.9 g/dl (32-36); Mean Corpuscular Hemoglobin 29.6 pg (26-34); Mean Corpuscular Volume 87.4 fl (80-100); Monocytes Absolute Auto 1.4 K/mm3 (0.1-0.6); Neutrophils Absolute Auto 26.3 K/mm3 (1.3-6.7); Neutrophils Percent Auto 90.2 % (45.5-73.1); Platelet Count Result 263 k/mm3 (150-375); Red Blood Count 4.43 M/mm3 (4.2-5.4); Red Cell Distribution Width 14.3 % (11.5-14.5); White Blood Count 29.1 K/mm3 (4.5-10.0)
[2022-08-17] MEDS: HEPARIN SODIUM 5,000 UNITS/ML VIAL 6000 UNITS IV PUSH (18:02)
[2022-08-17] MEDS: HEPARIN SOD/D5W 100 UNITS/ML 25,000 UNITS/250 ML BAG 14 UNITS IV CONT (18:03)
[2022-08-17 18:06] LABS: INR 1.3; Prothrombin Time 15.9 Seconds (11.1-14.7)
[2022-08-18] VITALS (14 sets, daily range): BP systolic 105–143; BP diastolic 61–76; PULSE 99–116; RESP 18–24; TEMP 36.2–37.1; O2SAT 90–99
[2022-08-18] MEDS: HEPARIN SODIUM 5,000 UNITS/ML VIAL 6000 UNITS IV PUSH (00:01)
[2022-08-18 00:23] LABS: Glucose Point of Care 169 mg/dl (65-105)
[2022-08-18] MEDS: PROMETHAZINE HCL 25 MG/ML AMPUL 12.5 MG IV PUSH ×2 (02:31→22:13)
[2022-08-18] MEDS: HYDROmorphone HCL INJ (*CRX) 1 MG/ML SYR 2 MG IV PUSH ×4 (02:32→11:57)
[2022-08-18] MEDS: ONDANSETRON INJ 4 MG/2 ML VIAL IV PUSH ×3 (05:32→17:48)
[2022-08-18] MEDS: CENTRAL LINE FLUSH 10 ML IV PUSH ×2 (05:33→21:30)
[2022-08-18 06:07] LABS: Basophils Absolute Auto 0.1 K/mm3 (0.0-0.1); Basophils Percent Auto 0.4 % (0.2-1.2); Eosinophils Absolute Auto 0.2 K/mm3 (0-0.3); Eosinophils Percent Auto 0.7 % (0-4.4); Hematocrit 37.4 % (37.0-47.0); Hemoglobin 12.7 g/dL (12.0-15.0); Immature Granulocyte Absolute 0.23 K/mm3 (0.00-0.031); Immature Granulocyte Percent A 0.9 % (0-0.5); Lymphocytes Absolute Auto 1.21 K/mm3 (0.9-3.2); Mean Corpuscular Hemoglobin 29.7 pg (26-34); Mean Corpuscular Volume 87.4 fl (80-100); Mean Platelet Volume 11.4 fl (7.4-10.4); Monocytes Absolute Auto 1.4 K/mm3 (0.1-0.6); Monocytes Percent Auto 5.7 % (2.6-8.5); Neutrophils Absolute Auto 21.2 K/mm3 (1.3-6.7); Neutrophils Percent Auto 87.3 % (45.5-73.1); Platelet Count Result 240 k/mm3 (150-375); Red Blood Count 4.28 M/mm3 (4.2-5.4); Red Cell Distribution Width 14.1 % (11.5-14.5); White Blood Count 24.3 K/mm3 (4.5-10.0)
[2022-08-18 06:21] LABS: Alanine Aminotransferase 43 U/L (6-35); Albumin Level 2.7 g/dL (3.5-5.1); Alkaline Phosphatase 81 U/L (38-126); Anion Gap 10 mmol/L (8-16); Aspartate Amino Transferase 30 U/L (14-36); Bilirubin,Total 1.3 mg/dL (0.2-1.3); Blood Urea Nitrogen 10 mg/dL (7-17); Carbon Dioxide 27 mmol/L (22-30); Chloride 97 mmol/L (98-107); Estimated CRCL calculation 131 ml/min; Estimated Glomerular Filt Rate > 60; Glucose 189 mg/dL (65-110); Lipase 762 U/L (23-300); Potassium 3.3 mmol/L (3.4-5.0); Sodium 134 mmol/L (137-145)
[2022-08-18 06:24] LABS: Partial Thromboplastin Time 59.5 SECONDS (22.3-36.8)
[2022-08-18 06:28] LABS: Phosphorus < 1.0 mg/dL (2.5-4.5)
[2022-08-18] MEDS: HEPARIN SODIUM 5,000 UNITS/ML VIAL 3000 UNITS IV PUSH (06:56)
[2022-08-18 08:52] LABS: Glucose Point of Care 191 mg/dl (65-105)
[2022-08-18] MEDS: PANTOPRAZOLE SODIUM IV 40 MG VIAL IV PUSH (09:02)
[2022-08-18] MEDS: SODIUM PHOSPHATE 20 MM in DEXTROSE 5% IN WATER 250 ML 50 MM IVPB (09:49)
--- NOTE | 2022-08-18 11:27 | PM.PNGS ---
Progress Note: A&P Assessment and Plan (1) Post-ERCP acute pancreatitis: Code(s): K91.89 - Other postprocedural complications and disorders of digestive system; K85.90 - Acute pancreatitis without necrosis or infection, unspecified Status: Acute Assessment and Plan: labs improved, exam slowly improving, cont TPN, will start clears (2) Calculus gallbladder and bile duct w/acute cholecystitis and obstructn: Code(s): K80.63 - Calculus of gallbladder and bile duct with acute cholecystitis with obstruction Status: Acute Assessment and Plan: will need interval cholecystectomy in the future Subjective Subjective Date/Time Seen: 08/18/22 11:27 feels a little better today, wants to try clears Review of Systems Review of Systems: All systems reviewed & are unremarkable except as noted in HPI and below Exam Const: General: cooperative, ill appearing and uncomfortable Resp: Effort & Inspection: normal respiratory effort Auscultation: clear to auscultation bilaterally Cardio: Rate: regular rate Rhythm: regular rhythm GI: Inspection: normal to inspection and distended GI Palp: Yes abdominal tenderness, Yes Soft to palpation, Yes Tenderness to palpation present (GI), No Guarding due to palpation present (GI) and No Rigid due to palpation Objective Data Vital Signs Vital Signs: Vital Signs - 24 hr 08/17/22 14:33 08/17/22 12:00 08/17/22 14:00 Temperature Pulse Rate 114 H 115 H 110 H Respiratory Rate 26 H Blood Pressure Pulse Oximetry 91 Oxygen Delivery Autopap Oxygen Flow Rate 08/17/22 16:00 08/17/22 17:58 08/17/22 20:00 Temperature 36.7 C 36.3 C L Pulse Rate 110 H 112 H Respiratory Rate 24 H 20 Blood Pressure 111/81 119/62 Pulse Oximetry 93 93 100 Oxygen Delivery Autopap Oxygen Flow Rate 2 08/17/22 16:00 08/17/22 12:00 08/17/22 16:00 Temperature Pulse Rate 114 H Respiratory Rate Blood Pressure Pulse Oximetry Oxygen Delivery Autopap Autopap Oxygen Flow Rate 08/17/22 18:00 08/17/22 20:00 08/17/22 20:00 Temperature Pulse Rate 107 H 112 H 112 H Respiratory Rate 20 Blood Pressure Pulse Oximetry 97 Oxygen Delivery Autopap Oxygen Flow Rate 08/17/22 22:00 08/17/22 22:00 08/17/22 22:50 Temperature Pulse Rate 110 H 112 H 109 H Respiratory Rate 20 23 H Blood Pressure Pulse Oximetry 92 Oxygen Delivery Autopap Oxygen Flow Rate 08/18/22 00:00 08/18/22 00:00 08/18/22 00:00 Temperature 37.1 C Pulse Rate 105 H 107 H 107 H Respiratory Rate 18 18 Blood Pressure 105/76 Pulse Oximetry 90 92 Oxygen Delivery Autopap Oxygen Flow Rate 08/18/22 02:00 08/18/22 02:55 08/18/22 04:00 Temperature Pulse Rate 113 H 102 H 107 H Respiratory Rate 23 H Blood Pressure Pulse Oximetry 90 Oxygen Delivery Autopap Oxygen Flow Rate 08/18/22 04:00 08/18/22 04:00 08/18/22 06:00 Temperature 36.9 C Pulse Rate 107 H 105 H 108 H Respiratory Rate 23 H 18 Blood Pressure 132/76 Pulse Oximetry 97 99 Oxygen Delivery Autopap Oxygen Flow Rate 08/18/22 06:00 08/18/22 08:00 Temperature 36.2 C L Pulse Rate 101 H 100 Respiratory Rate 24 H 20 Blood Pressure 120/61 Pulse Oximetry 95 93 Oxygen Delivery Oxygen Flow Rate Intake/Output Intake/Output: Intake & Output 08/15/22 08/16/22 08/17/22 08/18/22 23:59 23:59 23:59 23:59 Intake Total 4768 3490 4765 400 Output Total 725 550 800 450 Balance 4043 2940 3965 -50 Meds/Results Medications: Active Medications Generic Name Dose Route Start Last Admin Trade Name Freq PRN Reason Stop Dose Admin Dextrose 12.5 gm 08/16/22 12:31 Dextrose 50% 25 Gm/50 Ml Syringe IV PUSH PRN PRN Hypoglycemia Protocol Glucagon 1 mg 08/16/22 12:31 Glucagon For Inj 1 Mg Vial IM PRN PRN Hypoglycemia Protocol Glucose 15 gm 08/16/22 12:31 Glucose Oral Gel 15 Gm Of Glucse In 37.5
--- NOTE | 2022-08-18 11:42 | P.PNIM_ITS ---
Progress Note: A&P Assessment and Plan (1) Post-ERCP acute pancreatitis: Code(s): K91.89 - Other postprocedural complications and disorders of digestive system; K85.90 - Acute pancreatitis without necrosis or infection, unspecified Status: Acute Assessment and Plan: Patient with onset of severe epigastric pain after ERCP on 08/14. Lipase climbed to 8600. * Repeat Abd CT 08/15 showing acute necrotic pancreatitis and worsening moderate ascites. * [place] criteria after 48 hours was 5. * White count was 38K but better at 24K and fevers resolved. * Fevers probably rlated to DVT and/or atelectasis. Encouraged IS use. * Lipase trending downward to 762. LFTs improving * Calcium 6.0 with albumin 2.7 (corrected 7.3). Replace * Phos 1.0 again so will replace again * Continue TPN. Enteral feeding recommended and clears started. * ANIVAL resolved. UOP still poor and fluid balance +14.7L. Still tachycardic and urine appears concentrated so suspect still 3rd spacing fluids. Continue TPN. Follow * Appreciate GI and surgery input. * Continue Primaxin and IV fluids. (2) DVT (deep venous thrombosis): Code(s): I82.409 - Acute embolism and thrombosis of unspecified deep veins of unspecified lower extremity Status: Acute Assessment and Plan: Doppler showing right posterior tibial and peroneal veins DVT. Below the knee DVT is half the risk of PE. Discussed with Dr Gilbert. Heparin started. (3) SIRS (systemic inflammatory response syndrome): Code(s): R65.10 - Systemic inflammatory response syndrome (SIRS) of non-infectious origin without acute organ dysfunction Status: Acute Assessment and Plan: Related to the acute pancreatitis. As above. (4) Calculus gallbladder and bile duct w/acute cholecystitis and obstructn: Code(s): K80.63 - Calculus of gallbladder and bile duct with acute cholecystitis with obstruction Status: Acute Assessment and Plan: Patient had gallbladder colic for about 9 months with plans to see surgery for cholecystectomy. Patient presented here on 08/11 with acute abdominal pain and found have elevated LFTs. Lipase was normal at the time presentation. * MRCP on 08/12 showed choledocholithiasis and mild duct dilation and angelika lithiasis with gallbladder distension * ERCP completed on 08/14 showed choledocholithiasis with abnormal major papilla now s/p stone removal and sphincterotomy * General surgery and GI following. * Plan for cholecystectomy when patient is more stable. (5) Transaminitis: Code(s): R74.01 - Elevation of levels of liver transaminase levels Status: Acute Assessment and Plan: LFTs elevated on admission related to choledocholithiasis. * AST 594 and ALT 495 on admission. These values are trending downward. * Total bilirubin was 4.1 on admission. This has normallized * Continue to monitor LFTs. (6) Hypoxic: Code(s): R09.02 - Hypoxemia Status: Acute Assessment and Plan: Was requiring 4L O2 overnight 08/15-. She was 95% on room air at the time. Unclear if she was hypoxic but nothing documented. Able to wean O2 off. Continue BiPAP at night. Encouraged being out of bed and IS use. (7) Elevated troponin: Code(s): R77.8 - Other specified abnormalities of plasma proteins Status: Acute Assessment and Plan: Troponin was drawn on the evening of 08/14/22 following rapid response evaluation of near-syncope * Mildly elevated (0.086 --> 0.070) * Telemetry showing sinus tachycardia related to her acute pancreatitis * Patient does have
--- NOTE | 2022-08-18 11:42 | PM.IMPN ---
Progress Note: A&P Assessment and Plan (1) Post-ERCP acute pancreatitis: Code(s): K91.89 - Other postprocedural complications and disorders of digestive system; K85.90 - Acute pancreatitis without necrosis or infection, unspecified Status: Acute Assessment and Plan: Patient with onset of severe epigastric pain after ERCP on 08/14. Lipase climbed to 8600. Repeat Abd CT 08/15 showing acute necrotic pancreatitis and worsening moderate ascites. [place] criteria after 48 hours was 5. White count was 38K but better at 24K and fevers resolved. Fevers probably rlated to DVT and/or atelectasis. Encouraged IS use. Lipase trending downward to 762. LFTs improving Calcium 6.0 with albumin 2.7 (corrected 7.3). Replace Phos 1.0 again so will replace again Continue TPN. Enteral feeding recommended and clears started. ANIVAL resolved. UOP still poor and fluid balance +14.7L. Still tachycardic and urine appears concentrated so suspect still 3rd spacing fluids. Continue TPN. Follow Appreciate GI and surgery input. Continue Primaxin and IV fluids. (2) DVT (deep venous thrombosis): Code(s): I82.409 - Acute embolism and thrombosis of unspecified deep veins of unspecified lower extremity Status: Acute Assessment and Plan: Doppler showing right posterior tibial and peroneal veins DVT. Below the knee DVT is half the risk of PE. Discussed with Dr Gilbert. Heparin started. (3) SIRS (systemic inflammatory response syndrome): Code(s): R65.10 - Systemic inflammatory response syndrome (SIRS) of non-infectious origin without acute organ dysfunction Status: Acute Assessment and Plan: Related to the acute pancreatitis. As above. (4) Calculus gallbladder and bile duct w/acute cholecystitis and obstructn: Code(s): K80.63 - Calculus of gallbladder and bile duct with acute cholecystitis with obstruction Status: Acute Assessment and Plan: Patient had gallbladder colic for about 9 months with plans to see surgery for cholecystectomy. Patient presented here on 08/11 with acute abdominal pain and found have elevated LFTs. Lipase was normal at the time presentation. MRCP on 08/12 showed choledocholithiasis and mild duct dilation and cholelithiasis with gallbladder distension ERCP completed on 08/14 showed choledocholithiasis with abnormal major papilla now s/p stone removal and sphincterotomy General surgery and GI following. Plan for cholecystectomy when patient is more stable. (5) Transaminitis: Code(s): R74.01 - Elevation of levels of liver transaminase levels Status: Acute Assessment and Plan: LFTs elevated on admission related to choledocholithiasis. AST 594 and ALT 495 on admission. These values are trending downward. Total bilirubin was 4.1 on admission. This has normallized Continue to monitor LFTs. (6) Hypoxic: Code(s): R09.02 - Hypoxemia Status: Acute Assessment and Plan: Was requiring 4L O2 overnight 08/15-. She was 95% on room air at the time. Unclear if she was hypoxic but nothing documented. Able to wean O2 off. Continue BiPAP at night. Encouraged being out of bed and IS use. (7) Elevated troponin: Code(s): R77.8 - Other specified abnormalities of plasma proteins Status: Acute Assessment and Plan: Troponin was drawn on the evening of 08/14/22 following rapid response evaluation of near-syncope Mildly elevated (0.086 --> 0.070) Telemetry showing sinus tachycardia related to her acute pancreatitis Patient does have nonspecific EKG changes in the high lateral leads. Echo showing EF 70% and Grade i diastolic dysfunction Cardiology is following and appreciate the input. It is felt that she had elevated Trop related to the tachycarida but not acute coronary syndrome. (8) HTN (hypertension): Code(s): I10 - Essential (primary) hypertension Status: Acute Assessment and Plan:
[2022-08-18] MEDS: HEPARIN SOD/D5W 100 UNITS/ML 25,000 UNITS/250 ML BAG 19 UNITS IV CONT (11:58)
--- NOTE | 2022-08-18 12:32 | PCNFU ---
Nutrition Follow-Up Complete: Altered nutrition related lab values related to acute pancreatitis as evidenced by lipase 6060 today. Goal: Tolerate TPN at goal rate - 40 ml/h. - Meeting goal Advance to adequate oral intake as medically able. - Progressing slowly. Per RN they may try some clear liquids today Pt current nutrition is Clinmix 5/15 at 40 ml/h and lipids every other day. Nutrition recommendation: Lipase came down from 6060 on 08/16 to 762 today. Still elevated, recommend holding the lipids today. Probably will be able to give lipids tomorrow if she continues to make progress. Last recorded weight is 110.6 kg. Bowel Motility: none recorded Labs Reviewed:Alb 2.7, Na 134, K+ 3.3, Creat 0.6, Glu 189, Lipase 762 Meds Noted: Dilaudid, novolog, Zofran, promethazine Skin:WNL Additional Notes: Discussed with RN and patient Monitoring TPN tolerance, labs, diet advancement. Follow up Sunday/Sunday per protocol.
[2022-08-18 12:38] LABS: Glucose Point of Care 177 mg/dl (65-105)
[2022-08-18 13:03] LABS: Partial Thromboplastin Time 82.6 SECONDS (22.3-36.8)
[2022-08-18] MEDS: HYDROcodone/acetaminophen (*CRX) 5-325 MG TABLET 1 TAB PO ×2 (15:13→21:28)
--- NOTE | 2022-08-18 15:13 | WPDGIPROGNO ---
Progress Note: A&P Assessment and Plan (1) Transaminitis: Code(s): R74.01 - Elevation of levels of liver transaminase levels Status: Acute Assessment and Plan: The liver enzymes have improved today. The MRCP does however show choledocholithiasis. I again went over ERCP with her. Will schedule that to be done tomorrow 08/15/2022 bilirubin is 1.4. Transaminases are about the same. 08/16/2022 AST down from 594 to 40 LFTs remain low (2) Cholelithiases: Code(s): K80.20 - Calculus of gallbladder without cholecystitis without obstruction Status: Acute Assessment and Plan: She has known about gallstones for most of the past year but was hesitant about seen a surgeon because she had postoperative complications after a Caesarean section. 08/15/2022 sludge and small calculi were extracted with ERCP and sphincterotomy. (3) Abdominal pain: Code(s): R10.9 - Unspecified abdominal pain Status: Acute Assessment and Plan: pain is better. She understands that it would probably be worse if she tried to eat 08/15/2022 pain is worse today. Given the timing, I suspect she has an element of pancreatitis. Lipase is pending. She is hopeful that she will still have her gallbladder removed today Dilaudid 1 mg is not holding her pain very well. I will increase it to 2 mg. 08/16/2020 to pain is much better controlled today. Her abdomen is much less tender. 08/17/2022 no significant difference in her pain except that she is able to go a little further between doses of analgesics. 08/18/2022 perhaps a little less pain today than yesterday. She still is somewhat nauseated but is hungry (4) GERD (gastroesophageal reflux disease): Code(s): K21.9 - Gastro-esophageal reflux disease without esophagitis Status: Acute (5) Leukocytosis: Code(s): D72.829 - Elevated white blood cell count, unspecified Status: Acute Assessment and Plan: white blood count now of 30,000. She remains afebrile but this is concerning. She is covered with Primaxin procalcitonin level is normal. 08/17/2022 white blood count remains elevated. She is covered for possible infection with Primaxin. 08/18/2022 white blood count beginning to come down (6) Hypocalcemia: Code(s): E83.51 - Hypocalcemia Status: Acute Assessment and Plan: 08/16/2022 calcium has dropped from 8.1-6.8. I will check an ionized calcium level. 08/18/2022 corrected calcium is normal. Dr. Granger is managing her electrolytes and TPN Plan I discussed her case with Dr. Granger who is managing her hyperalimentation. He had spoken to staff at [facility], who declined to take her as a transfer stating that they would do the same that we could do here. I discussed her case with Ene Chairez. the patient has not been ambulating or moving about and is therefore at risk for deep vein thrombosis. She will be started on Lovenox and encouraged to get out of bed. Subjective Date/time seen: 08/17/22? 14:19? she continues to have pain requiring Dilaudid every 2 or 3 hours.? Nausea is constant but a little better today.? She had had a suppository but did not pass any stool or gas has of yet.? She does feel distended and feels that she would feel better if she could pass some. ? She has been started on TPN managed by Dr. Granger. 08/18/22 15:13 She continues have pain. She feels as though she would feel much better if she could have a bowel movement. She is requesting an enema. She is actually feeling hungry. Told her that we may try a popsicle and some clear liquids but I would 1st like to get x-ray of abdomen to see if she has significant ileus. Exam Const: General: healthy appearing, alert, awake and uncomfortable Nutritional Appearance: overweight Orientation/consciousness: patient oriented x3 Resp: Auscultation: clear to auscultation bilaterally Cardio: Rhythm: regular
[2022-08-18 17:22] LABS: Glucose Point of Care 192 mg/dl (65-105)
[2022-08-18] MEDS: MORPHINE SULFATE (*CRX) 2 MG/ML INJ IV PUSH (19:01)
[2022-08-18 19:30] LABS: Partial Thromboplastin Time 78.4 SECONDS (22.3-36.8)
[2022-08-18 23:49] LABS: Glucose Point of Care 178 mg/dl (65-105)
[2022-08-19] VITALS (14 sets, daily range): BP systolic 120–145; BP diastolic 54–87; PULSE 90–105; RESP 16–24; TEMP 36.1–37.1; O2SAT 96–99
[2022-08-19] MEDS: ONDANSETRON INJ 4 MG/2 ML VIAL IV PUSH ×3 (00:34→20:49)
[2022-08-19] MEDS: ACETAMINOPHEN 325 MG TABLET 650 MG PO (00:35)
[2022-08-19] MEDS: HEPARIN SOD/D5W 100 UNITS/ML 25,000 UNITS/250 ML BAG 19 UNITS IV CONT (00:36)
[2022-08-19] MEDS: CENTRAL LINE FLUSH 10 ML IV PUSH ×3 (05:36→20:52)
[2022-08-19] MEDS: CENTRAL LINE FLUSH 20 ML IV PUSH ×3 (05:36→22:56)
[2022-08-19] MEDS: HYDROcodone/acetaminophen (*CRX) 5-325 MG TABLET 1 TAB PO ×3 (05:37→17:57)
[2022-08-19 05:40] LABS: Basophils Absolute Auto 0.1 K/mm3 (0.0-0.1); Basophils Percent Auto 0.5 % (0.2-1.2); Eosinophils Absolute Auto 0.1 K/mm3 (0-0.3); Eosinophils Percent Auto 0.4 % (0-4.4); Hemoglobin 11.5 g/dL (12.0-15.0); Immature Granulocyte Absolute 0.34 K/mm3 (0.00-0.031); Immature Granulocyte Percent A 1.6 % (0-0.5); Lymphocytes Absolute Auto 1.76 K/mm3 (0.9-3.2); Lymphocytes Percent Auto 8.1 % (18.3-44.2); Mean Corpuscular HGB Conc 33.8 g/dl (32-36); Mean Corpuscular Hemoglobin 29.5 pg (26-34); Mean Corpuscular Volume 87.2 fl (80-100); Mean Platelet Volume 10.8 fl (7.4-10.4); Monocytes Absolute Auto 1.5 K/mm3 (0.1-0.6); Monocytes Percent Auto 7.1 % (2.6-8.5); Neutrophils Percent Auto 82.3 % (45.5-73.1); Platelet Count Result 236 k/mm3 (150-375); Red Cell Distribution Width 13.8 % (11.5-14.5); White Blood Count 21.8 K/mm3 (4.5-10.0)
[2022-08-19] MEDS: PROMETHAZINE HCL 25 MG/ML AMPUL 12.5 MG IV PUSH ×2 (05:49→11:58)
[2022-08-19 05:59] LABS: Alanine Aminotransferase 40 U/L (6-35); Albumin Level 2.7 g/dL (3.5-5.1); Alkaline Phosphatase 98 U/L (38-126); Anion Gap 6 mmol/L (8-16); Aspartate Amino Transferase 32 U/L (14-36); Bilirubin,Total 1.7 mg/dL (0.2-1.3); Blood Urea Nitrogen 6 mg/dL (7-17); Calcium 6.2 mg/dL (8.4-10.2); Carbon Dioxide 28 mmol/L (22-30); Chloride 95 mmol/L (98-107); Estimated CRCL calculation 155 ml/min; Estimated Glomerular Filt Rate > 60; Glucose 188 mg/dL (65-110); Lipase 229 U/L (23-300); Phosphorus 1.2 mg/dL (2.5-4.5); Sodium 129 mmol/L (137-145)
[2022-08-19 07:18] LABS: Partial Thromboplastin Time > 200.0 SECONDS (22.3-36.8)
--- NOTE | 2022-08-19 09:07 | PM.PNGS ---
Progress Note: A&P Assessment and Plan (1) Post-ERCP acute pancreatitis: Code(s): K91.89 - Other postprocedural complications and disorders of digestive system; K85.90 - Acute pancreatitis without necrosis or infection, unspecified Status: Acute Assessment and Plan: labs cont to improve, cont current mgmt, encourage OOB, cont clears/TPN (2) Calculus gallbladder and bile duct w/acute cholecystitis and obstructn: Code(s): K80.63 - Calculus of gallbladder and bile duct with acute cholecystitis with obstruction Status: Acute Assessment and Plan: will need interval angelika Subjective Subjective Date/Time Seen: 08/19/22 09:07 still feels pretty miserable, c/o nausea, bloating, back pain Review of Systems Review of Systems: All systems reviewed & are unremarkable except as noted in HPI and below Exam Const: General: cooperative, ill appearing, tired appearing and uncomfortable Resp: Auscultation: clear to auscultation bilaterally Cardio: Rate: regular rate Rhythm: regular rhythm GI: Inspection: normal to inspection and distended GI Palp: Yes abdominal tenderness, Yes Soft to palpation, Yes Tenderness to palpation present (GI), No Guarding due to palpation present (GI) and No Rigid due to palpation Objective Data Vital Signs Vital Signs: Vital Signs - 24 hr 08/18/22 12:00 08/18/22 12:53 08/18/22 16:00 Temperature 37.0 C 36.3 C L Pulse Rate 105 H 106 H Respiratory Rate 22 H 20 Blood Pressure 125/71 141/73 H Pulse Oximetry 94 94 95 Oxygen Delivery Room Air 08/18/22 10:00 08/18/22 12:00 08/18/22 14:00 Temperature Pulse Rate 116 H 110 H 112 H Respiratory Rate Blood Pressure Pulse Oximetry Oxygen Delivery 08/18/22 16:00 08/18/22 20:00 08/18/22 12:00 Temperature 36.4 C L Pulse Rate 106 H 99 99 Respiratory Rate 18 18 Blood Pressure 143/73 H Pulse Oximetry 94 94 Oxygen Delivery Room Air 08/18/22 16:00 08/18/22 18:00 08/18/22 20:00 Temperature Pulse Rate 99 99 99 Respiratory Rate 18 18 Blood Pressure Pulse Oximetry 94 94 Oxygen Delivery Room Air Room Air 08/18/22 20:00 08/18/22 22:00 08/19/22 00:00 Temperature 36.1 C L Pulse Rate 101 H 107 H 105 H Respiratory Rate 18 Blood Pressure 123/70 Pulse Oximetry 96 Oxygen Delivery 08/19/22 00:00 08/19/22 00:00 08/19/22 02:00 Temperature Pulse Rate 105 H 98 98 Respiratory Rate 18 Blood Pressure Pulse Oximetry 96 Oxygen Delivery Room Air 08/19/22 04:00 08/19/22 04:00 08/19/22 03:25 Temperature 36.8 C Pulse Rate 94 94 94 Respiratory Rate 20 20 Blood Pressure 137/87 Pulse Oximetry 96 96 Oxygen Delivery Room Air 08/19/22 06:00 08/19/22 08:00 Temperature 36.9 C Pulse Rate 99 92 Respiratory Rate 24 H Blood Pressure 145/82 H Pulse Oximetry 97 Oxygen Delivery Intake/Output Intake/Output: Intake & Output 08/16/22 08/17/22 08/18/22 08/19/22 23:59 23:59 23:59 23:59 Intake Total 3490 4765 2487 1230 Output Total 560 491 0930 775 Balance 2940 3965 1237 455 Meds/Results Medications: Active Medications Generic Name Dose Route Start Last Admin Trade Name Freq PRN Reason Stop Dose Admin Acetaminophen 650 mg 08/18/22 14:13 08/19/22 00:35 Acetaminophen 325 Mg Tablet PO 650 mg Q6H PRN Administration Mild Pain (1-3) or Fever Hydrocodone Bitart/Acetaminophen 1 tab 08/18/22 14:12 08/19/22 05:37 Hydrocodone/Acetaminophen (*Crx) 5-325 Mg Tablet PO 1 tab Q6H PRN Administration Pain Rated 4-6 Dextrose 12.5 gm 08/16/22 12:31 Dextrose 50% 25 Gm/50 Ml Syringe IV PUSH PRN PRN Hypoglycemia Protocol Glucagon 1 mg 08/16/22 12:31 Glucagon For Inj 1 Mg Vial IM PRN PRN Hypoglycemia Protocol Glucose 15 gm 08/16/22 12:31 Glucose Oral Gel 15 Gm Of Glucse In 37.5 Gm Tube PO PRN PRN Hypoglycemia Protocol Heparin Sodium (Porcine) 6,000
[2022-08-19] MEDS: PANTOPRAZOLE SODIUM IV 40 MG VIAL IV PUSH (09:25)
[2022-08-19] MEDS: SODIUM PHOSPHATE 20 MM in DEXTROSE 5% IN WATER 250 ML 50 MM IVPB (09:25)
[2022-08-19] MEDS: POTASSIUM CHLORIDE 20 MEQ PACKET (FOR LIQUID) 40 MEQ PO (09:25)
[2022-08-19 10:21] LABS: Ionized Calcium 3.8 mg/dL (4.8-5.6)
[2022-08-19 12:31] LABS: Triglycerides 123 mg/dL (<150)
[2022-08-19 12:50] LABS: Glucose Point of Care 173 mg/dl (65-105)
--- NOTE | 2022-08-19 13:07 | WPDGIPROGNO ---
Progress Note: A&P Assessment and Plan (1) Transaminitis: Code(s): R74.01 - Elevation of levels of liver transaminase levels Status: Acute Assessment and Plan: The liver enzymes have improved today. The MRCP does however show choledocholithiasis. I again went over ERCP with her. Will schedule that to be done tomorrow 08/15/2022 bilirubin is 1.4. Transaminases are about the same. 08/16/2022 AST down from 594 to 40 LFTs remain low (2) Cholelithiases: Code(s): K80.20 - Calculus of gallbladder without cholecystitis without obstruction Status: Acute Assessment and Plan: She has known about gallstones for most of the past year but was hesitant about seen a surgeon because she had postoperative complications after a Caesarean section. 08/15/2022 sludge and small calculi were extracted with ERCP and sphincterotomy. 08/19/2022 cholecystectomy will be done at some point but obviously not while she is recovering from pancreatitis (3) Abdominal pain: Code(s): R10.9 - Unspecified abdominal pain Status: Acute Assessment and Plan: pain is better. She understands that it would probably be worse if she tried to eat 08/15/2022 pain is worse today. Given the timing, I suspect she has an element of pancreatitis. Lipase is pending. She is hopeful that she will still have her gallbladder removed today Dilaudid 1 mg is not holding her pain very well. I will increase it to 2 mg. 08/16/2020 to pain is much better controlled today. Her abdomen is much less tender. 08/17/2022 no significant difference in her pain except that she is able to go a little further between doses of analgesics. 08/18/2022 perhaps a little less pain today than yesterday. She still is somewhat nauseated but is hungry (4) GERD (gastroesophageal reflux disease): Code(s): K21.9 - Gastro-esophageal reflux disease without esophagitis Status: Acute (5) Leukocytosis: Code(s): D72.829 - Elevated white blood cell count, unspecified Status: Acute Assessment and Plan: white blood count now of 30,000. She remains afebrile but this is concerning. She is covered with Primaxin procalcitonin level is normal. 08/17/2022 white blood count remains elevated. She is covered for possible infection with Primaxin. 08/18/2022 white blood count beginning to come down 08/19/2022 gradual decline in WBCs (6) Hypocalcemia: Code(s): E83.51 - Hypocalcemia Status: Acute Assessment and Plan: 08/16/2022 calcium has dropped from 8.1-6.8. I will check an ionized calcium level. 08/18/2022 corrected calcium is normal. Dr. Granger is managing her electrolytes and TPN 08/19/2022 electrolytes being managed with TPN solution. Today potassium and calcium are bit low. Dr. Granger managing that aspect. (7) DVT (deep venous thrombosis): Code(s): I82.409 - Acute embolism and thrombosis of unspecified deep veins of unspecified lower extremity Status: Acute Assessment and Plan: Doppler study revealed: 1. Deep venous thrombosis in the right posterior tibial and peroneal veins. Otherwise, patent bilateral lower extremity veins. her PTT today was over 200. Heparin was held for 1 hour and repeat PTT is pending (8) ANIVAL (acute kidney injury): Code(s): N17.9 - Acute kidney failure, unspecified Status: Acute Assessment and Plan: renal function is back to normal with BUN in single digits. (9) Post-ERCP acute pancreatitis: Code(s): K91.89 - Other postprocedural complications and disorders of digestive system; K85.90 - Acute pancreatitis without necrosis or infection, unspecified Status: Acute Assessment and Plan: she remains quite uncomfortable. Lipase has improved, although that is not necessarily a good parameter to follow in terms of recovery. Her pain is primarily now on her back, reinforcing the earlier finding of some retroper
--- NOTE | 2022-08-19 14:34 | PM.IMPN ---
Progress Note: A&P Assessment and Plan (1) Post-ERCP acute pancreatitis: Code(s): K91.89 - Other postprocedural complications and disorders of digestive system; K85.90 - Acute pancreatitis without necrosis or infection, unspecified Status: Acute Assessment and Plan: Patient with onset of severe epigastric pain after ERCP on 08/14. Lipase climbed to 8600. Repeat Abd CT 08/15 showing acute necrotic pancreatitis and worsening moderate ascites. [place] criteria after 48 hours was 5. White count was 38K but better at 22K and fevers resolved. Fevers probably related to DVT and/or atelectasis. Encouraged IS use. Lipase trending downward to 229. LFTs improving but bili worse (related to Morphine?) Calcium 6.2 with albumin 2.7 (corrected 7.5). iCa 3.8. Replace. Phos 1.2 so will replace again Continue TPN. Enteral feeding recommended and clears started. Advance diet as tolerated ANIVAL resolved. UOP still poor and fluid balance +16.5L. Not tachycardic and urine appears less concentrated so probably mobilizing some fluids. IV fluids stopped. Follow Appreciate GI and surgery input. Continue Primaxin and TPN Repeat CT today. (2) DVT (deep venous thrombosis): Code(s): I82.409 - Acute embolism and thrombosis of unspecified deep veins of unspecified lower extremity Status: Acute Assessment and Plan: Doppler showing right posterior tibial and peroneal veins DVT. Below the knee DVT is half the risk of PE. Discussed with Dr Gilbert. Heparin started. (3) SIRS (systemic inflammatory response syndrome): Code(s): R65.10 - Systemic inflammatory response syndrome (SIRS) of non-infectious origin without acute organ dysfunction Status: Acute Assessment and Plan: Related to the acute pancreatitis. As above. (4) Calculus gallbladder and bile duct w/acute cholecystitis and obstructn: Code(s): K80.63 - Calculus of gallbladder and bile duct with acute cholecystitis with obstruction Status: Acute Assessment and Plan: Patient had gallbladder colic for about 9 months with plans to see surgery for cholecystectomy. Patient presented here on 08/11 with acute abdominal pain and found have elevated LFTs. Lipase was normal at the time presentation. MRCP on 08/12 showed choledocholithiasis and mild duct dilation and cholelithiasis with gallbladder distension ERCP completed on 08/14 showed choledocholithiasis with abnormal major papilla now s/p stone removal and sphincterotomy General surgery and GI following. Plan for cholecystectomy when patient is more stable. (5) Transaminitis: Code(s): R74.01 - Elevation of levels of liver transaminase levels Status: Acute Assessment and Plan: LFTs elevated on admission related to choledocholithiasis. AST 594 and ALT 495 on admission. These values are almost normal now Total bilirubin was 4.1 on admission. This normalized but then increased today to 1.7. Continue to monitor LFTs. (6) Hypoxic: Code(s): R09.02 - Hypoxemia Status: Acute Assessment and Plan: Was requiring 4L O2 overnight 08/15-. She was 95% on room air at the time. Unclear if she was hypoxic but nothing documented. Able to wean O2 off. Continue BiPAP at night. Encouraged being out of bed and IS use. [place] removed. (7) Elevated troponin: Code(s): R77.8 - Other specified abnormalities of plasma proteins Status: Acute Assessment and Plan: Troponin was drawn on the evening of 08/14/22 following rapid response evaluation of near-syncope Mildly elevated (0.086 --> 0.070) Telemetry showing sinus tachycardia related to her acute pancreatitis Patient does have nonspecific EKG changes in the high lateral leads. Echo showing EF 70% and Grade i diastolic dysfunction Cardiology is following and appreciate the input. It is felt that she had elevated Trop related to the tachycarida but not acute coronary syndrome. (8
[2022-08-19 15:26] LABS: Partial Thromboplastin Time 49.7 SECONDS (22.3-36.8)
[2022-08-19] MEDS: AMINO ACIDS 5%/D15W/E-LYTES/CA 2,000 ML with MULTIVITAMINS-12 INJ VIAL 1 2.5 ML, MULTIV... 40 ML IV CONT (16:35)
[2022-08-19] MEDS: CALCIUM GLUCONATE 1,000 MG/10 ML VIAL 1000 MG IV PUSH (16:35)
[2022-08-19] MEDS: HEPARIN SODIUM 5,000 UNITS/ML VIAL 6000 UNITS IV PUSH (16:36)
[2022-08-19] MEDS: MAG HYDROX/AL HYDROX/SIMETH 30 ML UDC PO (17:57)
[2022-08-19 18:49] LABS: Glucose Point of Care 168 mg/dl (65-105)
[2022-08-19 23:51] LABS: Partial Thromboplastin Time > 200.0 SECONDS (22.3-36.8)
[2022-08-19 23:59] LABS: Glucose Point of Care 179 mg/dl (65-105)
[2022-08-20] VITALS (14 sets, daily range): BP systolic 124–164; BP diastolic 70–105; PULSE 90–116; RESP 16–24; TEMP 36.3–37.4; O2SAT 94–100
[2022-08-20] MEDS: PROMETHAZINE HCL 25 MG/ML AMPUL 12.5 MG IV PUSH ×2 (00:04→22:23)
[2022-08-20] MEDS: CENTRAL LINE FLUSH 10 ML IV PUSH ×4 (00:28→22:05)
[2022-08-20] MEDS: HYDROcodone/acetaminophen (*CRX) 5-325 MG TABLET 1 TAB PO ×2 (03:15→22:22)
[2022-08-20] MEDS: CENTRAL LINE FLUSH 20 ML IV PUSH ×2 (07:42→22:05)
[2022-08-20 07:57] LABS: Basophils Absolute Auto 0.2 K/mm3 (0.0-0.1); Basophils Percent Auto 0.7 % (0.2-1.2); Eosinophils Absolute Auto 0.2 K/mm3 (0-0.3); Eosinophils Percent Auto 0.8 % (0-4.4); Hematocrit 32.6 % (37.0-47.0); Hemoglobin 11.2 g/dL (12.0-15.0); Immature Granulocyte Absolute 1.04 K/mm3 (0.00-0.031); Immature Granulocyte Percent A 4.2 % (0-0.5); Lymphocytes Absolute Auto 2.32 K/mm3 (0.9-3.2); Lymphocytes Percent Auto 9.3 % (18.3-44.2); Mean Corpuscular HGB Conc 34.4 g/dl (32-36); Mean Corpuscular Hemoglobin 29.8 pg (26-34); Mean Corpuscular Volume 86.7 fl (80-100); Mean Platelet Volume 10.5 fl (7.4-10.4); Monocytes Absolute Auto 1.8 K/mm3 (0.1-0.6); Monocytes Percent Auto 7.2 % (2.6-8.5); Neutrophils Absolute Auto 19.3 K/mm3 (1.3-6.7); Neutrophils Percent Auto 77.8 % (45.5-73.1); Nucleated Red Blood Cells Perc 0.1 % (0.0-0.2); Platelet Count Result 292 k/mm3 (150-375); Red Blood Count 3.76 M/mm3 (4.2-5.4); Red Cell Distribution Width 14.1 % (11.5-14.5); White Blood Count 24.8 K/mm3 (4.5-10.0)
[2022-08-20 08:09] LABS: Partial Thromboplastin Time 51.3 SECONDS (22.3-36.8)
[2022-08-20 08:13] LABS: Alanine Aminotransferase 36 U/L (6-35); Albumin Level 2.8 g/dL (3.5-5.1); Alkaline Phosphatase 108 U/L (38-126); Anion Gap 7 mmol/L (8-16); Aspartate Amino Transferase 36 U/L (14-36); Bilirubin,Total 1.1 mg/dL (0.2-1.3); Blood Urea Nitrogen 5 mg/dL (7-17); Calcium 6.6 mg/dL (8.4-10.2); Carbon Dioxide 27 mmol/L (22-30); Chloride 96 mmol/L (98-107); Estimated CRCL calculation 155 ml/min; Estimated Glomerular Filt Rate > 60; Glucose 184 mg/dL (65-110); Lipase 121 U/L (23-300); Phosphorus 1.5 mg/dL (2.5-4.5); Potassium 3.1 mmol/L (3.4-5.0); Sodium 130 mmol/L (137-145)
[2022-08-20] MEDS: PANTOPRAZOLE SODIUM IV 40 MG VIAL IV PUSH (08:21)
[2022-08-20 08:46] LABS: Glucose Point of Care 202 mg/dl (65-105)
[2022-08-20] MEDS: HEPARIN SODIUM 5,000 UNITS/ML VIAL 6000 UNITS IV PUSH (09:16)
--- NOTE | 2022-08-20 11:27 | PM.PNGS ---
Progress Note: A&P Assessment and Plan (1) Post-ERCP acute pancreatitis: Code(s): K91.89 - Other postprocedural complications and disorders of digestive system; K85.90 - Acute pancreatitis without necrosis or infection, unspecified Status: Acute Assessment and Plan: slowly improving, labs dramatically improved, cont serial exams, clears and TPN for now (2) Calculus gallbladder and bile duct w/acute cholecystitis and obstructn: Code(s): K80.63 - Calculus of gallbladder and bile duct with acute cholecystitis with obstruction Status: Acute Assessment and Plan: will need interval angelika at some point Subjective Subjective Date/Time Seen: 08/20/22 11:27 feels better today, quyen clears better, less pain Review of Systems Review of Systems: All systems reviewed & are unremarkable except as noted in HPI and below Exam Const: General: cooperative, no acute distress, tired appearing and uncomfortable Resp: Auscultation: clear to auscultation bilaterally Cardio: Rate: regular rate Rhythm: regular rhythm GI: Inspection: normal to inspection and distended GI Palp: Yes abdominal tenderness, Yes Soft to palpation, Yes Tenderness to palpation present (GI), No Guarding due to palpation present (GI) and No Rigid due to palpation Objective Data Vital Signs Vital Signs: Vital Signs - 24 hr 08/19/22 12:00 08/19/22 16:00 08/19/22 12:00 Temperature 36.6 C 37.1 C Pulse Rate 96 96 96 Respiratory Rate 16 20 Blood Pressure 137/80 126/54 L Pulse Oximetry 98 98 Oxygen Delivery 08/19/22 14:00 08/19/22 16:00 08/19/22 18:00 Temperature Pulse Rate 92 96 103 H Respiratory Rate Blood Pressure Pulse Oximetry Oxygen Delivery 08/19/22 12:00 08/19/22 16:00 08/19/22 20:00 Temperature 37.1 C Pulse Rate 94 Respiratory Rate 20 Blood Pressure 120/68 Pulse Oximetry 99 Oxygen Delivery Room Air Room Air 08/19/22 20:00 08/20/22 00:00 08/20/22 00:00 Temperature 37.4 C Pulse Rate 94 95 95 Respiratory Rate 20 18 18 Blood Pressure 138/84 Pulse Oximetry 99 100 100 Oxygen Delivery Room Air Room Air 08/19/22 20:00 08/19/22 22:00 08/20/22 00:00 Temperature Pulse Rate 97 99 99 Respiratory Rate Blood Pressure Pulse Oximetry Oxygen Delivery 08/20/22 01:57 08/20/22 04:00 08/20/22 04:00 Temperature 36.3 C L Pulse Rate 97 110 H 90 Respiratory Rate 18 Blood Pressure 124/81 Pulse Oximetry 98 Oxygen Delivery 08/20/22 04:00 08/20/22 06:00 08/19/22 21:25 Temperature Pulse Rate 90 99 Respiratory Rate 18 Blood Pressure Pulse Oximetry 98 98 Oxygen Delivery Room Air Room Air 08/20/22 08:00 08/20/22 08:00 08/20/22 08:00 Temperature 36.7 C Pulse Rate 96 100 Respiratory Rate 18 Blood Pressure 149/70 H Pulse Oximetry 100 Oxygen Delivery Room Air 08/20/22 10:00 Temperature Pulse Rate 96 Respiratory Rate Blood Pressure Pulse Oximetry Oxygen Delivery Intake/Output Intake/Output: Intake & Output 08/17/22 08/18/22 08/19/22 08/20/22 23:59 23:59 23:59 23:59 Intake Total 4765 2487 3435 1100 Output Total 800 1250 1075 1450 Balance 3965 1237 2360 -350 Meds/Results Medications: Active Medications Generic Name Dose Route Start Last Admin Trade Name Freq PRN Reason Stop Dose Admin Acetaminophen 650 mg 08/19/22 14:48 Acetaminophen 325 Mg Tablet PO Q6H PRN Mild Pain (1-5) Or Fever Hydrocodone Bitart/Acetaminophen 1 tab 08/19/22 14:48 08/20/22 03:15 Hydrocodone/Acetaminophen (*Crx) 5-325 Mg Tablet PO 1 tab Q6H PRN Administration Pain Rated 6-10 Al Hydrox/Mg Hydrox/Simethicone 30 ml 08/19/22 17:12 08/19/22 17:57 Mag Hydrox/Al Hydrox/Simeth 30 Ml Udc PO 30 ml Q6H PRN Administration Indigestion Dextrose 12.5 gm 08/16/22 12:31 Dextrose 50% 25 Gm/50 Ml Syringe IV PUSH PRN PRN Hypoglycemia Protocol Glucagon 1 mg
[2022-08-20] MEDS: INSULIN ASPART (*BKC) 100 UNITS/ML SUB-Q (12:02)
[2022-08-20 12:06] LABS: Glucose Point of Care 208 mg/dl (65-105)
--- NOTE | 2022-08-20 15:00 | PM.IMPN ---
Progress Note: A&P Assessment and Plan (1) Post-ERCP acute pancreatitis: Code(s): K91.89 - Other postprocedural complications and disorders of digestive system; K85.90 - Acute pancreatitis without necrosis or infection, unspecified Status: Acute Assessment and Plan: Patient with onset of severe epigastric pain after ERCP on 08/14. Lipase climbed to 8600. Repeat Abd CT 08/15 showing acute necrotic pancreatitis and worsening moderate ascites. [place] criteria after 48 hours was 5. White count was 38K but down to 22K and fevers resolved; WBC up again to 24.8K today Fevers probably related to DVT and/or atelectasis. Encouraged IS use with apparent clinical benefit. Lipase normal now. LFTs improving but bili worse (related to Morphine?) Calcium 6.6 with albumin 2.8 (corrected 7.8). iCa 3.8. Follow Phos 1.25 so will replace orally Started TPN. Enteral feeding recommended and clears started. Advance diet per GenSurg ANIVAL resolved. UOP still poor and fluid balance +18L. Tachycardic better. IV fluids stopped. Follow Repeat CT 08/19 showing Focal worsening of peripancreatic inflammation at the pancreatic head with new focal area of necrosis. Also a 6.7 cm acute necrotic collection at the body. Decrease in the peritoneal fluid but worsening wall edema. Appreciate GI and surgery input. Continue Primaxin and TPN (2) DVT (deep venous thrombosis): Code(s): I82.409 - Acute embolism and thrombosis of unspecified deep veins of unspecified lower extremity Status: Acute Assessment and Plan: Doppler showing right posterior tibial and peroneal veins DVT. Below the knee DVT is half the risk of PE. Discussed with Dr Gilbert again last night. Continue Heparin. Having trouble keeping her in the therapeutic range. (3) SIRS (systemic inflammatory response syndrome): Code(s): R65.10 - Systemic inflammatory response syndrome (SIRS) of non-infectious origin without acute organ dysfunction Status: Acute Assessment and Plan: Related to the acute pancreatitis. As above. (4) Calculus gallbladder and bile duct w/acute cholecystitis and obstructn: Code(s): K80.63 - Calculus of gallbladder and bile duct with acute cholecystitis with obstruction Status: Acute Assessment and Plan: Patient had gallbladder colic for about 9 months with plans to see surgery for cholecystectomy. Patient presented here on 08/11 with acute abdominal pain and found have elevated LFTs. Lipase was normal at the time presentation. MRCP on 08/12 showed choledocholithiasis and mild duct dilation and cholelithiasis with gallbladder distension ERCP completed on 08/14 showed choledocholithiasis with abnormal major papilla now s/p stone removal and sphincterotomy General surgery and GI following. Plan for cholecystectomy when patient is more stable. (5) Transaminitis: Code(s): R74.01 - Elevation of levels of liver transaminase levels Status: Acute Assessment and Plan: LFTs elevated on admission related to choledocholithiasis. AST 594 and ALT 495 on admission. These values are normal now Total bilirubin was 4.1 on admission. This has also normalized Continue to monitor LFTs. (6) Hypoxic: Code(s): R09.02 - Hypoxemia Status: Acute Assessment and Plan: Was requiring 4L O2 overnight 08/15-. She was 95% on room air at the time. Unclear if she was hypoxic but nothing documented. Able to wean O2 off. Continue BiPAP at night. Encouraged being out of bed and IS use. She is walking in halls. (7) Elevated troponin: Code(s): R77.8 - Other specified abnormalities of plasma proteins Status: Acute Assessment and Plan: Troponin was drawn on the evening of 08/14/22 following rapid response evaluation of near-syncope Mildly elevated (0.086 --> 0.070) Telemetry showing sinus tachycardia related to her acute pancreatitis Patient does have nonspecific EKG lieberman
[2022-08-20 15:14] LABS: Partial Thromboplastin Time 69.3 SECONDS (22.3-36.8)
[2022-08-20] MEDS: HEPARIN SODIUM 5,000 UNITS/ML VIAL 3000 UNITS IV PUSH ×2 (15:45→23:40)
[2022-08-20] MEDS: AMINO ACIDS 5%/D15W/E-LYTES/CA 2,000 ML with MULTIVITAMINS-12 INJ VIAL 1 2.5 ML, MULTIV... 40 ML IV CONT (15:46)
[2022-08-20] MEDS: PHARMACIST COMMUNICATION ORDER 1 EACH XX (15:58)
[2022-08-20] MEDS: POTASSIUM/PHOSPHORUS/SODIUM 1.5 GM PACKET 1 PACKET PO (16:42)
[2022-08-20] MEDS: guaiFENesin 12 HR 600 MG TABCR PO (16:42)
[2022-08-20 18:25] LABS: Glucose Point of Care 181 mg/dl (65-105)
[2022-08-20] MEDS: HEPARIN SOD/D5W 100 UNITS/ML 25,000 UNITS/250 ML BAG 21 UNITS IV CONT (22:04)
[2022-08-20 22:31] LABS: Partial Thromboplastin Time 64.4 SECONDS (22.3-36.8)
[2022-08-20 23:42] LABS: Glucose Point of Care 204 mg/dl (65-105)
[2022-08-21] VITALS (18 sets, daily range): BP systolic 138–150; BP diastolic 67–89; PULSE 90–118; RESP 16–24; TEMP 36.2–37.2; O2SAT 94–100
[2022-08-21] MEDS: ACETAMINOPHEN 325 MG TABLET 650 MG PO (03:07)
[2022-08-21] MEDS: ONDANSETRON INJ 4 MG/2 ML VIAL IV PUSH (03:09)
[2022-08-21] MEDS: HYDROcodone/acetaminophen (*CRX) 5-325 MG TABLET 1 TAB PO (04:35)
[2022-08-21] MEDS: PROMETHAZINE HCL 25 MG/ML AMPUL 12.5 MG IV PUSH (04:37)
[2022-08-21] MEDS: CENTRAL LINE FLUSH 20 ML IV PUSH (06:05)
[2022-08-21] MEDS: CENTRAL LINE FLUSH 10 ML IV PUSH ×3 (06:05→20:47)
[2022-08-21 06:36] LABS: Hematocrit 29.9 % (37.0-47.0); Hemoglobin 10.4 g/dL (12.0-15.0); Mean Corpuscular HGB Conc 34.8 g/dl (32-36); Mean Corpuscular Hemoglobin 29.5 pg (26-34); Mean Corpuscular Volume 84.7 fl (80-100); Mean Platelet Volume 10.6 fl (7.4-10.4); Platelet Count Result 329 k/mm3 (150-375); Red Blood Count 3.53 M/mm3 (4.2-5.4); White Blood Count 29.8 K/mm3 (4.5-10.0)
[2022-08-21] MEDS: PROMETHAZINE HCL 25 MG/ML AMPUL IM (06:53)
[2022-08-21 06:59] LABS: Alanine Aminotransferase 118 U/L (6-35); Albumin Level 2.5 g/dL (3.5-5.1); Alkaline Phosphatase 285 U/L (38-126); Anion Gap 8 mmol/L (8-16); Aspartate Amino Transferase 278 U/L (14-36); Bilirubin,Total 2.9 mg/dL (0.2-1.3); Blood Urea Nitrogen 6 mg/dL (7-17); Calcium 6.4 mg/dL (8.4-10.2); Carbon Dioxide 27 mmol/L (22-30); Chloride 93 mmol/L (98-107); Estimated CRCL calculation 187 ml/min; Estimated Glomerular Filt Rate > 60; Glucose 297 mg/dL (65-110); Lipase 182 U/L (23-300); Magnesium 2.1 mg/dL (1.6-2.3); Phosphorus 1.6 mg/dL (2.5-4.5); Potassium 2.7 mmol/L (3.4-5.0); Sodium 128 mmol/L (137-145)
[2022-08-21 07:04] LABS: Transferrin 106 mg/dL (206-381)
[2022-08-21 07:23] LABS: INR 1.6; Prothrombin Time 18.7 Seconds (11.1-14.7)
[2022-08-21 07:51] LABS: Partial Thromboplastin Time > 200.0 SECONDS (22.3-36.8)
[2022-08-21] MEDS: KCL 40 MEQ/WATER 100 ML 100 ML 25 ML IVPB (08:06)
[2022-08-21] MEDS: PANTOPRAZOLE SODIUM IV 40 MG VIAL IV PUSH ×2 (08:11→20:47)
[2022-08-21 09:26] LABS: Glucose Point of Care 202 mg/dl (65-105)
--- NOTE | 2022-08-21 09:29 | PM.IMPN ---
Progress Note: A&P Assessment and Plan (1) Post-ERCP acute pancreatitis: Code(s): K91.89 - Other postprocedural complications and disorders of digestive system; K85.90 - Acute pancreatitis without necrosis or infection, unspecified Status: Acute Assessment and Plan: Patient with onset of severe epigastric pain after ERCP on 08/14. Lipase climbed to 8600. Repeat Abd CT 08/15 showing acute necrotic pancreatitis and worsening moderate ascites. [place] criteria after 48 hours was 5. White count was 38K but down to 22K and fevers resolved; WBC up again to 29.8K today Fevers probably related to DVT and/or atelectasis. Encouraged IS use Started TPN. Enteral feeding recommended and clears started. NPo again due to change in status Repeat CT 08/19 showing focal worsening of peripancreatic inflammation at the pancreatic head with new focal area of necrosis. Also a 6.7 cm acute necrotic collection at the body. Decrease in the peritoneal fluid but worsening wall edema. Lipase ws 8600 but normal now and remaining normal. LFTs have jumped up today; Change in clinical status with increasing abd pain, n/v. Consider that she dropped a stone or possible hemorrhagic pancreatitis. Hgb at 10.4 (11.2 yesterday). Follow HH. Advance Protonix Appreciate GI and surgery input. Continue Primaxin and TPN. (2) Electrolyte abnormality: Code(s): E87.8 - Other disorders of electrolyte and fluid balance, not elsewhere classified Status: Acute Assessment and Plan: Calcium 6.4 with albumin 2.5 (corrected 7.9). iCa 3.8. Follow for now Phos 1.6 and replacement ordered Potassium 2.7 and replacement ordered Na 128 possibly related to remobilizing fluids Will discuss with Nutrition to adjust TPN (3) DVT (deep venous thrombosis): Code(s): I82.409 - Acute embolism and thrombosis of unspecified deep veins of unspecified lower extremity Status: Acute Assessment and Plan: Doppler showing right posterior tibial and peroneal veins DVT. Below the knee DVT is half the risk of PE. Given the change, will hold Heparin. (4) SIRS (systemic inflammatory response syndrome): Code(s): R65.10 - Systemic inflammatory response syndrome (SIRS) of non-infectious origin without acute organ dysfunction Status: Acute Assessment and Plan: Related to the acute pancreatitis. As above. (5) Calculus gallbladder and bile duct w/acute cholecystitis and obstructn: Code(s): K80.63 - Calculus of gallbladder and bile duct with acute cholecystitis with obstruction Status: Acute Assessment and Plan: Patient with known cholelithiasis and had gallbladder colic for about 9 months with plans to see surgery for cholecystectomy. Patient presented here on 08/11 with acute abdominal pain and found have elevated LFTs. RUQ US showing innumerable gallstones but no evidence of cholecystitis. Lipase was normal at the time presentation. MRCP on 08/12 showed choledocholithiasis and mild duct dilation and cholelithiasis with gallbladder distension ERCP completed on 08/14 showed choledocholithiasis with abnormal major papilla now s/p stone removal and sphincterotomy General surgery and GI following. Plan for cholecystectomy when patient is more stable. (6) Transaminitis: Code(s): R74.01 - Elevation of levels of liver transaminase levels Status: Acute Assessment and Plan: LFTs elevated on admission related to choledocholithiasis. AST 594 and ALT 495 on admission. These values normalized but back up today Total bilirubin was 4.1 on admission. This did normalize but now back up to 2.9 Continue to monitor LFTs. As above. (7) Hypoxic: Code(s): R09.02 - Hypoxemia Status: Acute Assessment and Plan: Was requiring 4L O2 overnight 08/15-. She was 95% on room air at the time. Unclear if she was hypoxic but nothing documented. Able to wean O2 off. Continue BiPAP at night.
[2022-08-21] MEDS: LORazepam INJ (*CRX) 2 MG/ML VIAL IV PUSH (09:45)
[2022-08-21 09:55] LABS: Band Neutrophils Percent 22 % (0-6); Lymphocytes Absolute Manual 3.27 K/mm3 (1.1-4.5); Metamyelocytes Percent 2 %; Monocytes Absolute Manual 1.19 K/mm3 (0.1-0.90); Monocytes Percent Manual 4 % (3-9); Neutrophils Absolute Manual 24.73 K/mm3 (1.7-7.2); Neutrophils Percent Manual 61 % (46-73); Platelet Estimate Adequate (Adequate); Schistocytes None Seen (NORMAL); Total Cells Counted 100
--- NOTE | 2022-08-21 10:30 | PM.PNGS ---
Progress Note: A&P Assessment and Plan (1) Post-ERCP acute pancreatitis: Code(s): K91.89 - Other postprocedural complications and disorders of digestive system; K85.90 - Acute pancreatitis without necrosis or infection, unspecified Status: Acute Assessment and Plan: Increase in abdominal pain overnight with vomiting. WBC slowly trending up over the past two days and up to 29.8 today. LFTs also went up this morning. Lipase normal. Repeat CT scan abd/pelvis this am, will await results. Keep NPO and place NG tube. Continue TPN and will need additional IV fluids, discussed with Hospitalist. (2) Calculus gallbladder and bile duct w/acute cholecystitis and obstructn: Code(s): K80.63 - Calculus of gallbladder and bile duct with acute cholecystitis with obstruction Status: Acute (3) DVT (deep venous thrombosis): Code(s): I82.409 - Acute embolism and thrombosis of unspecified deep veins of unspecified lower extremity Status: Acute Assessment and Plan: RLE distal DVT being treated with Heparin infusion. Plan I have discussed the patient's case and plan of care with Dr. Momin. Subjective Subjective Date/Time Seen: 08/21/22 09:10 Patient reports: still having pain, flatus, no bowel movement (last BM was 2 small formed stools 2 days ago), nausea and vomiting Interval history: Patient seen and examined. Chart reviewed since last evaluated. She is now on heparin drip for right lower extremity distal DVT. Started feeling better over the weekend and was transitioned to [place] for her abdominal pain. Last night, her pain increased and she had multiple episodes of vomiting overnight and into this morning. She reports brown emesis. She reports her abdominal pain is much worse today than it has been in the past few days. Still across her upper abdomen and is radiating into her back. She reports her pain is so severe she is unable to lie back in bed or find any position that is comfortable. No other complaints at this time. Review of Systems Review of Systems: All systems reviewed & are unremarkable except as noted in HPI and below Cardiovascular: Cardiovascular: Reports no additional cardiovascular complaints, Denies chest pain and Denies dyspnea Respiratory: Respiratory: Reports no additional respiratory complaints and Denies dyspnea Gastrointestinal: Gastrointestinal: Reports as per HPI and Reports no additional gastrointestinal complaints Exam Const: General: alert, ill appearing, uncomfortable and obese Orientation/consciousness: patient oriented x3 Resp: Effort & Inspection: normal respiratory effort Auscultation: clear to auscultation bilaterally Cardio: Rate: tachycardic Rhythm: regular rhythm GI: Inspection: distended and obesity GI Palp: Yes Soft to palpation, Yes Tenderness to palpation present (GI) (across entire upper abdomen), No Guarding due to palpation present (GI) and No Rebound tenderness present Auscultation: Hypoactive bowel sounds present Psych: Mental Status: mental status grossly normal Insight: Good insight present (Psych) Objective Data Vital Signs Vital Signs: Vital Signs - 24 hr 08/20/22 12:00 08/20/22 12:00 08/20/22 12:00 Temperature 98.1 F Pulse Rate 98 106 H Respiratory Rate 24 H Blood Pressure 154/105 H Pulse Oximetry 98 Oxygen Delivery Room Air 08/20/22 15:53 08/20/22 14:00 08/20/22 16:00 Temperature 98.4 F Pulse Rate 100 99 96 Respiratory Rate 24 H Blood Pressure 164/95 H Pulse Oximetry 98 Oxygen Delivery 08/20/22 16:00 08/20/22 18:00 08/20/22 20:00 Temperature 97.7 F Pulse Rate 99 103 H Respiratory Rate 20 Blood Pressure 151/95 H Pulse Oximetry 95 Oxygen Delivery Room Air 08/20/22 20:00 08/20/22 23:51 08/21/22 00:00 Temperature 98 F Pulse Rate 103 H 114 H 114 H Respiratory Rate 20 16 16 Blood Pressure 150/91 H Pulse Oximetry 95 94 94 Oxygen Delivery Room Air Room Air
--- NOTE | 2022-08-21 10:50 | PC.NURSE ---
Cheo MCDONOUGH requested second RN to attempt NG tube placement after first failed attempt. This RN attempted to place NG tube. Advanced the NG tube and the patient immediately complained the tube felt like it was stabbing her throat. NG tube contents were dark red/brown and contained blood clots. NG removed. Called Dr Granger into the room to see NG contents.
[2022-08-21] MEDS: HYDROmorphone HCL INJ (*CRX) 1 MG/ML SYR IV PUSH ×3 (12:24→20:49)
[2022-08-21] MEDS: POTASSIUM PHOS,M-BASIC-D-BASIC 40 MMOL in SODIUM CHLORIDE 0.9% IV 250 ML 43.89 MMOL IVPB (12:39)
[2022-08-21 12:48] LABS: Glucose Point of Care 157 mg/dl (65-105)
[2022-08-21 13:16] LABS: Hematocrit 32.2 % (37.0-47.0); Hemoglobin 10.9 g/dL (12.0-15.0)
[2022-08-21] MEDS: LACTATED RINGERS 1,000 ML 100 ML IV CONT (13:23)
[2022-08-21 14:01] LABS: Alanine Aminotransferase 140 U/L (6-35); Albumin Level 2.7 g/dL (3.5-5.1); Alkaline Phosphatase 286 U/L (38-126); Anion Gap 7 mmol/L (8-16); Aspartate Amino Transferase 342 U/L (14-36); Bilirubin,Total 3.9 mg/dL (0.2-1.3); Blood Urea Nitrogen 8 mg/dL (7-17); Calcium 6.9 mg/dL (8.4-10.2); Carbon Dioxide 28 mmol/L (22-30); Chloride 96 mmol/L (98-107); Estimated CRCL calculation 131 ml/min; Estimated Glomerular Filt Rate > 60; Glucose 173 mg/dL (65-110); Phosphorus 1.7 mg/dL (2.5-4.5); Sodium 131 mmol/L (137-145); Triglycerides 140 mg/dL (<150)
--- NOTE | 2022-08-21 15:38 | WPDGIPROGNO ---
Progress Note: A&P Assessment and Plan (1) Transaminitis: Code(s): R74.01 - Elevation of levels of liver transaminase levels Status: Acute Assessment and Plan: The liver enzymes have improved today. The MRCP does however show choledocholithiasis. I again went over ERCP with her. Will schedule that to be done tomorrow 08/15/2022 bilirubin is 1.4. Transaminases are about the same. 08/16/2022 AST down from 594 to 40 LFTs remain low transaminases actually have increased today and bilirubin is up, also. Had she not had a prior sphincterotomy, would be concerned about common bile duct stone. I am suspecting this all may be secondary to the edema. She has more peripancreatic edema. (2) Cholelithiases: Code(s): K80.20 - Calculus of gallbladder without cholecystitis without obstruction Status: Acute Assessment and Plan: She has known about gallstones for most of the past year but was hesitant about seen a surgeon because she had postoperative complications after a Caesarean section. 08/15/2022 sludge and small calculi were extracted with ERCP and sphincterotomy. 08/19/2022 cholecystectomy will be done at some point but obviously not while she is recovering from pancreatitis (3) Abdominal pain: Code(s): R10.9 - Unspecified abdominal pain Status: Acute Assessment and Plan: pain is better. She understands that it would probably be worse if she tried to eat 08/15/2022 pain is worse today. Given the timing, I suspect she has an element of pancreatitis. Lipase is pending. She is hopeful that she will still have her gallbladder removed today Dilaudid 1 mg is not holding her pain very well. I will increase it to 2 mg. 08/16/2020 to pain is much better controlled today. Her abdomen is much less tender. 08/17/2022 no significant difference in her pain except that she is able to go a little further between doses of analgesics. 08/18/2022 perhaps a little less pain today than yesterday. She still is somewhat nauseated but is hungry (4) GERD (gastroesophageal reflux disease): Code(s): K21.9 - Gastro-esophageal reflux disease without esophagitis Status: Acute (5) Leukocytosis: Code(s): D72.829 - Elevated white blood cell count, unspecified Status: Acute Assessment and Plan: white blood count now of 30,000. She remains afebrile but this is concerning. She is covered with Primaxin procalcitonin level is normal. 08/17/2022 white blood count remains elevated. She is covered for possible infection with Primaxin. 08/18/2022 white blood count beginning to come down 08/19/2022 gradual decline in WBCs (6) Hypocalcemia: Code(s): E83.51 - Hypocalcemia Status: Acute Assessment and Plan: 08/16/2022 calcium has dropped from 8.1-6.8. I will check an ionized calcium level. 08/18/2022 corrected calcium is normal. Dr. Granger is managing her electrolytes and TPN 08/19/2022 electrolytes being managed with TPN solution. Today potassium and calcium are bit low. Dr. Granger managing that aspect. (7) DVT (deep venous thrombosis): Code(s): I82.409 - Acute embolism and thrombosis of unspecified deep veins of unspecified lower extremity Status: Acute Assessment and Plan: Doppler study revealed: 1. Deep venous thrombosis in the right posterior tibial and peroneal veins. Otherwise, patent bilateral lower extremity veins. her PTT today was over 200. Heparin was held for 1 hour and repeat PTT is pending (8) ANIVAL (acute kidney injury): Code(s): N17.9 - Acute kidney failure, unspecified Status: Acute Assessment and Plan: renal function is back to normal with BUN in single digits. (9) Post-ERCP acute pancreatitis: Code(s): K91.89 - Other postprocedural complications and disorders of digestive system; K85.90 - Acute pancreatitis without necrosis or infection, unspecified
[2022-08-21] MEDS: AMINO ACIDS 5%/D15W/E-LYTES/CA 2,000 ML with MULTIVITAMINS-12 INJ VIAL 1 2.5 ML, MULTIV... 40 ML IV CONT (16:27)
[2022-08-21 16:49] LABS: Glucose Point of Care 182 mg/dl (65-105)
[2022-08-21 18:33] LABS: Hematocrit 35.3 % (37.0-47.0); Hemoglobin 11.6 g/dL (12.0-15.0)
--- NOTE | 2022-08-21 21:21 | PC.NURSE ---
Pt accepted to [facility] ([address] room [address]. Dr. Real accepting physician. Report called to CEASAR Burrows [phone].
[2022-08-21 21:44] LABS: Potassium 3.4 mmol/L (3.4-5.0)
--- NOTE | 2022-08-21 22:40 | PC.NURSE ---
Notified [facility] feeder worker power unit operator that pt left IMU via [facility] at [phone]. Pt to transfer to [facility] ([facility]) room 7243. Pt's family members aware.
--- NOTE | 2022-08-22 18:32 | P.TS_ITS ---
Transfer Discharge Sum: Prov Provider Date of admission: 08/13/22 13:17 Primary care physician: China Patterson MD Admitting clinician: Shaquille Hogue MD Consults: 08/11/22 18:50 Consult to Physician Routine Comment: Consulting Provider: Raman Gilbert rn call center/MD group to consult: Ofelia Reason for consultation: Cholelithiasis, transaminitis Has provider been notified: Yes Consult to Physician Routine Comment: Spoke w/ 0814 08/12 (, [place]) Consulting Provider: Carlitos Momin rn call center/MD group to consult: Liliane Reason for consultation: cholelithiasis, transaminitis Has provider been notified: Yes 08/15/22 14:24 Consult to Physician Routine Comment: left vm with lelo @[phone] (,) Consulting Provider: Lelo Sanchez rn call center/MD group to consult: cardiology Reason for consultation: elevated troponin with EKG changes, requiring surgery Has provider been notified: Yes 08/16/22 Venous mailing section clerk Consult Routine Reason for Consult:: Diffult access, multiple infusions: PICC placement 08/16/22 12:29 Consult to Dietitian Routine Reason for Consult:: TPN Receiving physician/facility: [facility] DS: Admitting Diagnosis Discharge Date 08/21/22 Admitting Diagnosis Abdominal pain DS: Discharge Diagnosis Discharge Diagnosis (1) Post-ERCP acute pancreatitis: Code(s): K91.89 - Other postprocedural complications and disorders of digestive system; K85.90 - Acute pancreatitis without necrosis or infection, unspecified Status: Acute Assessment and Plan: Patient with onset of severe epigastric pain after ERCP on 08/14. Lipase climbed to 8600. * Repeat Abd CT 08/15 showing acute necrotic pancreatitis and worsening moderate ascites. * [place] criteria after 48 hours was 5. * White count was 38K but down to 22K and fevers resolved; WBC up again to 29.8K * Fevers probably related to DVT and/or atelectasis. * Started TPN. Enteral feeding recommended and clears started. NPo again due to change in status * Repeat CT 08/19 showing focal worsening of peripancreatic inflammation at the pancreatic head with new focal area of necrosis. Also a 6.7 cm acute necrotic collection at the body. Decrease in the peritoneal fluid but worsening wall edema. * Lipase was 8600 but normal now and remaining normal. * LFTs have increased; Change in clinical status with increasing abd pain, n/v. Consider that she dropped a stone or possible hemorrhagic pancreatitis. Hgb at 10.4 (11.2 yesterday). * Treated with Primaxin (2) Electrolyte abnormality: Code(s): E87.8 - Other disorders of electrolyte and fluid balance, not elsewhere classified Status: Acute Assessment and Plan: * Calcium 6.4 with albumin 2.5 (corrected 7.9). iCa 3.8. * Phos 1.6 and replaced * Potassium 2.7 and replaced * Na 128 possibly related to remobilizing fluids (3) DVT (deep venous thrombosis): Code(s): I82.409 - Acute embolism and thrombosis of unspecified deep veins of unspecified lower extremity Status: Acute Assessment and Plan: Doppler showing right posterior tibial and peroneal veins DVT. Below the knee DVT is half the risk of PE but she is high risk for propagation. Discussed with other providers and intially felt benefit outweighed risk so Heparin started. Heparin was stopped due to change in status. (4) SIRS (systemic inflammatory response syndrome):
--- NOTE | 2022-08-22 18:32 | PM.TDS ---
Transfer Discharge Sum: Prov Provider Date of admission: 08/13/22 13:17 Primary care physician: China Patterson MD Admitting clinician: Shaquille Hogue MD Consults: 08/11/22 18:50 Consult to Physician Routine Comment: Consulting Provider: Raman Gilbert call circuit worker/MD group to consult: Ofelia Reason for consultation: Cholelithiasis, transaminitis Has provider been notified: Yes Consult to Physician Routine Comment: Spoke w/ 0814 08/12 (, [place]) Consulting Provider: Carlitos Momin call circuit worker/MD group to consult: Liliane Reason for consultation: cholelithiasis, transaminitis Has provider been notified: Yes 08/15/22 14:24 Consult to Physician Routine Comment: left vm with lelo @[id number] (,) Consulting Provider: Lelo Sanchez call circuit worker/MD group to consult: cardiology Reason for consultation: elevated troponin with EKG changes, requiring surgery Has provider been notified: Yes 08/16/22 Venous sizing machine and drier operator Consult Routine Reason for Consult:: Diffult access, multiple infusions: PICC placement 08/16/22 12:29 Consult to Dietitian Routine Reason for Consult:: TPN Receiving physician/facility: [facility] DS: Admitting Diagnosis Discharge Date 08/21/22 Admitting Diagnosis Abdominal pain DS: Discharge Diagnosis Discharge Diagnosis (1) Post-ERCP acute pancreatitis: Code(s): K91.89 - Other postprocedural complications and disorders of digestive system; K85.90 - Acute pancreatitis without necrosis or infection, unspecified Status: Acute Assessment and Plan: Patient with onset of severe epigastric pain after ERCP on 08/14. Lipase climbed to 8600. Repeat Abd CT 08/15 showing acute necrotic pancreatitis and worsening moderate ascites. Tenzin criteria after 48 hours was 5. White count was 38K but down to 22K and fevers resolved; WBC up again to 29.8K Fevers probably related to DVT and/or atelectasis. Started TPN. Enteral feeding recommended and clears started. NPo again due to change in status Repeat CT 08/19 showing focal worsening of peripancreatic inflammation at the pancreatic head with new focal area of necrosis. Also a 6.7 cm acute necrotic collection at the body. Decrease in the peritoneal fluid but worsening wall edema. Lipase was 8600 but normal now and remaining normal. LFTs have increased; Change in clinical status with increasing abd pain, n/v. Consider that she dropped a stone or possible hemorrhagic pancreatitis. Hgb at 10.4 (11.2 yesterday). Treated with Primaxin (2) Electrolyte abnormality: Code(s): E87.8 - Other disorders of electrolyte and fluid balance, not elsewhere classified Status: Acute Assessment and Plan: Calcium 6.4 with albumin 2.5 (corrected 7.9). iCa 3.8. Phos 1.6 and replaced Potassium 2.7 and replaced Na 128 possibly related to remobilizing fluids (3) DVT (deep venous thrombosis): Code(s): I82.409 - Acute embolism and thrombosis of unspecified deep veins of unspecified lower extremity Status: Acute Assessment and Plan: Doppler showing right posterior tibial and peroneal veins DVT. Below the knee DVT is half the risk of PE but she is high risk for propagation. Discussed with other providers and intially felt benefit outweighed risk so Heparin started. Heparin was stopped due to change in status. (4) SIRS (systemic inflammatory response syndrome): Code(s): R65.10 - Systemic inflammatory response syndrome (SIRS) of non-infectious origin without acute organ dysfunction Status: Acute Assessment and Plan: Related to the acute pancreatitis. (5) Calculus gallbladder and bile duct w/acute cholecystitis and obstructn: Code(s): K80.63 - Calculus of gallbladder and bile duct with acute cholecystitis with obstruction Status: Acute Assessment and Plan: Patient with known cholelithiasis and had gallbladder colic for about 9 months with plans to se
== END 2022-08-21 22:35 | disposition short-term general hospital (02) | DRG 444 ==
LOC: ANHED 18:53 → ANH3MEDSUR 20:00 → ANHIMU 08-15 20:10
PROVIDERS: Internal Medicine; Internal Medicine Gastroenterology; Nurse Practitioner; Nurse Practitioner Adult Health; Nurse Practitioner Family; Physician Assistant; Surgery; Admitting Provider Chiropractor; Emergency Provider Emergency Medicine; PCP Internal Medicine; Visit Provider Internal Medicine
PROC: 0FC98ZZ Extirpation of Matter from Common Bile Duct, Via Natural or Artificial Opening Endoscopic (ICD-10-PCS; CPT 43260; principal; 2022-08-14 15:00)
DX: K80.50 Calculus of bile duct without cholangitis or cholecystitis without obstruction (principal); K85.92 Acute pancreatitis with infected necrosis, unspecified; K91.89 Other postprocedural complications and disorders of digestive system; R65.10 Systemic inflammatory response syndrome (SIRS) of non-infectious origin without acute organ dysfunction; I82.441 Acute embolism and thrombosis of right tibial vein; I82.451 Acute embolism and thrombosis of right peroneal vein; R18.8 Other ascites; N17.9 Acute kidney failure, unspecified; Z68.41 Body mass index [BMI] 40.0-44.9, adult; R77.8 Other specified abnormalities of plasma proteins; R55 Syncope and collapse; E80.6 Other disorders of bilirubin metabolism; K31.9 Disease of stomach and duodenum, unspecified; K21.9 Gastro-esophageal reflux disease without esophagitis; E83.51 Hypocalcemia; D72.829 Elevated white blood cell count, unspecified; Z20.822 Contact with and (suspected) exposure to COVID-19; F41.9 Anxiety disorder, unspecified; I10 Essential (primary) hypertension; E66.01 Morbid (severe) obesity due to excess calories; G47.33 Obstructive sleep apnea (adult) (pediatric)
CPT/HCPCS: 36415; 36569; 36600; 71045; 74018; 74176; 74177; 74183; 74329; 76376; 76705; 80048; 80053; 81001; 81025; 82330; 82607; 82746; 82805; 82948; 83605; 83615; 83690; 83735; 84100; 84132; 84145; 84443; 84466; 84478; 84484; 85014; 85018; 85025; 85027; 85610; 85730; 86140; 86850; 86900; 86901; 87040; 93005; 93306; 93970; 93971; 96360; 96361; 96365; 99285; A9270; A9577; C1751; C9113; C9803; G0378; J0131; J0330; J0610; J0743; J1170; J1200; J1644; J1650; J1815; J2060; J2270; J2405; J2543; J2550; J2704; J3250; J3370; J3475; J3480; J7030; J7040; J7050; J7060; J7120; J7121; Q9967; U0003; U0005

== ENCOUNTER 2022-11-01 09:50 | Outpatient (CLI) | payer OTHER, SELFPAY ==
--- NOTE | ~2022-11-01 | CT_ITS ---
CT of the Abdomen and Pelvis: Indication: Acute pancreatitis Technique: 5 mm axial scans were obtained through the abdomen and pelvis following administration of oral and intravenous administration of 100 cc of Omnipaque 350. Dose reduction technique was used on this scan by utilizing automated exposure control and iterative reconstruction technique. The dose-l ength product (DLP) was 1093.66 mGy-cm. COMPARISON: 08/21/2022 Findings: Scans through the lung bases demonstrate small left pleural effusion with bibasilar atelec tatic change. Minimal pericardial fluid noted. Presumed pancreatic duct stent present. Peripancreatic inflammatory changes and ill-defined fluid col lections are present, with overall decrease in amount of fluid/inflation from prior exam. Suspected f ocal necrosis of the pancreatic neck. Transgastric drainage catheters are present, extending towards the splenic hilum region. For reference, collection at the splenic hilum region measures approximatel y 3.9 x 2.2 cm (axial image 52). There is an additional, new collection anteriorly, just deep to the anterior abdominal wall, which may all be loculated (coronal images 18-28) measuring approximately 10 cm in craniocaudal extent. There is an additional small collection in the subcapsular region along t he anterior left hepatic lobe margin, scalloping the margin of the liver, measuring 2.9 cm in diamete r (axial image 44). The liver, spleen, adrenals and kidneys are within normal limits. Numerous calcified gallstones again present. No evidence of aortic aneurysm. No lymphadenopathy. No bowel obstruction. Focal areas of reactive large bowel wall thickening are present where the bowel is adjacent areas of inflammatory change, is noted with the hepatic and splenic flexures. Images through the pelvis were performed. Urinary bladder unremarkable. No adnexal mass seen. No pelv ic free fluid. Impression: Findings consistent with evolving acute pancreatitis, with extensive peripancreatic inflammatory lopez ge, but overall improved from prior exam. There is interval placement of presumed main pancreatic rita t stent, as well as transgastric drainage catheters. New fluid collections just deep to the anterior abdominal wall, and anterior to the left hepatic lobe , as detailed above. Clinical correlation for any possibility of superinfection required. Small left pleural effusion with bibasilar atelectatic change. Reviewed, dictated and finalized at location [] UCT MGR Impression: Findings consistent with evolving acute pancreatitis, with extensive peripancre atic inflammatory change, but overall improved from prior exam. There is interv al placement of presumed main pancreatic duct stent, as well as transgastric dr george catheters. New fluid collections just deep to the anterior abdominal wall, and anterior to the left hepatic lobe, as detailed above. Clinical correlation for any possibi lity of superinfection required. Small left pleural effusion with bibasilar atelectatic change.
== END 2022-11-01 09:51 | disposition home or self-care (01) ==
PROVIDERS: PCP Internal Medicine
DX: K85.90 Acute pancreatitis without necrosis or infection, unspecified (principal); J90 Pleural effusion, not elsewhere classified
CPT/HCPCS: 74177; Q9967

== ENCOUNTER 2023-10-06 16:41 | Emergency (ER) | payer OTHER, SELFPAY ==
--- NOTE | ~2023-10-06 | XR_ITS ---
EXAM: XR hand RT min 3V DATE: 10/06/2023 17:01 HISTORY: trauma today fell onto hand/pain 3-5th fingers MP joints . COMPARISON: None available. FINDINGS: Normal mineralization. No fracture or dislocation. No lytic or blastic lesion. Joint space s are maintained. No erosion or periosteal change. Soft tissues within normal limits. IMPRESSION: No acute osseous finding in the right hand. Reviewed, dictated and finalized at location K. CHER DRIVER
--- NOTE | 2023-10-06 16:53 | ED.GENADULT ---
HPI - General Adult General Chief complaint: Extremity Injury, Upper Stated complaint: rt hand injury Time Seen by Provider: 10/06/23 16:53 Source: patient, RN notes reviewed and old records reviewed Mode of arrival: ambulatory Limitations: no limitations History of Present Illness HPI narrative: 38-year-old female presents to the [facility] with complaints of right hand pain after falling and landing on her hand. This occurred today prior to arrival. Tenderness to the MCP and proximal 5th finger right hand. Mild swelling noted States that she applied ice, note other treatment prior to arrival Related Data Home Medications Medication Instructions Recorded Confirmed escitalopram oxalate 20 mg tablet 20 mg PO DAILY 08/04/21 10/06/23 (Lexapro) hydrochlorothiazide 12.5 mg tablet 25 mg PO DAILY 08/04/21 10/06/23 lisinopril 40 mg tablet 40 mg PO DAILY 08/04/21 10/06/23 clonazepam 1 mg tablet 1 mg PO BID 10/06/23 10/06/23 Allergies Allergy/AdvReac Type Severity Reaction Status Date / Time No Known Allergies Allergy Verified 10/06/23 16:50 Review of Systems Review of Systems: All systems reviewed & are unremarkable except as noted in HPI and below Constitutional: Constitutional: Reports no additional constitutional complaints Eyes: Eyes: Reports no additional eye complaints ENT: Reports system reviewed and no additional complaints, except as documented Cardiovascular: Cardiovascular: Reports no additional cardiovascular complaints, Denies chest pain and Denies dyspnea Respiratory: Respiratory: Reports no additional respiratory complaints, Denies chest congestion, Denies cough and Denies dyspnea Gastrointestinal: Gastrointestinal: Reports no additional gastrointestinal complaints, Denies abdominal pain, Denies nausea and Denies vomiting Musculoskeletal: Musculoskeletal: Reports as per HPI Integumentary/Breasts: Skin/Breast: Reports system reviewed and no additional complaints, except as docu Neurologic: Reports system reviewed and no additional complaints, except as documented Psychiatric: Psychiatric: Reports no additional psychiatric complaints Allergic/Immunologic: Allergic/Immunologic: Reports no additional allergic/immunologic complaints PMFSH Past Medical History Medical History Abdominal pain Anxiety Cholelithiases Dysphagia GERD (gastroesophageal reflux disease) HTN (hypertension) Obese KRISTINA (obstructive sleep apnea) she does not wear her CPAP machine she has an oral apparatus. Surgical History Surgical History H/O abdominal surgery due to postop postop complication H/O tubal ligation H/O: X3 Hx of tonsillectomy Family History Family History Father Diabetes mellitus Sibling Hypertension Asthma Social History Social History Social History: the patient is and lives with her . They have 3 children together. She is a lifelong nonsmoker. She does not use any alcohol marijuana or illicit drugs. 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 Her is the durable power health care attorney for healthcare. Code status full code Smoking status: Never smoker Second hand tobacco smoke exposure: No Alcohol intake: never Alcohol use details: very rarely Substance use: never Substance use type: does not use Living arrangements: with family Spiritual care concerns: No Comments At the time of my signature, I reviewed and agree with the nursing past medical, surgical, social, and family history. There is no relevant family history pertinent to the patient complaint. Exam Const: General: cooperative, healthy appearing, comfortable, no acute distress, well developed, alert and well nourished Nutritional Appearance: well nourished and obese Andria
[2023-10-06 16:54] VITALS: BP 149/91; PULSE 78; RESP 16; TEMP 36.4; O2SAT 100
== END 2023-10-06 17:27 | disposition home or self-care (01) ==
PROVIDERS: Emergency Provider Nurse Practitioner; PCP Internal Medicine
DX: S60.221A Contusion of right hand, initial encounter (principal); W19.XXXA Unspecified fall, initial encounter; K21.9 Gastro-esophageal reflux disease without esophagitis; I10 Essential (primary) hypertension; G47.33 Obstructive sleep apnea (adult) (pediatric); Z91.199 Patient's noncompliance with other medical treatment and regimen due to unspecified reason; E66.9 Obesity, unspecified; Z68.32 Body mass index [BMI] 32.0-32.9, adult; F41.9 Anxiety disorder, unspecified
CPT/HCPCS: 73130; 99213; G0463

== ENCOUNTER → 2023-10-10 10:11 | Outpatient (CLI) | payer OTHER, SELFPAY ==
--- NOTE | ~2023-10-10 | XR_ITS ---
EXAMINATION: XR lumbar spine min 4V DATE: 10/10/2023 10:40 INDICATION: Low back pain TECHNIQUE: Anteroposterior, lateral, and bilateral oblique views of the lumbar spine, and cone-down l ateral view of the lumbosacral junction were obtained. COMPARISON: CT, 11/01/2022 FINDINGS: Bone alignment is normal. There is no fracture. The vertebral body heights and intervertebr al disc spaces are normal. There is mild facet joint osteoarthritis at L5-S1. IMPRESSION: 1. Mild lumbar spondylosis without acute findings. Reviewed, dictated and finalized at location F. S INSPECTOR
== END ==
PROVIDERS: PCP Internal Medicine; Visit Provider Chiropractor
DX: M47.896 Other spondylosis, lumbar region (principal)
CPT/HCPCS: 72110

== ENCOUNTER 2023-10-22 17:03 | Emergency (ER) | payer OTHER, SELFPAY ==
--- NOTE | 2023-10-22 17:07 | ED.URI ---
HPI - URI/Sore Throat General Chief Complaint: Upper Respiratory Infection Stated Complaint: Sinus Infection Time Seen by Provider: 10/22/23 17:05 Source: patient Mode of arrival: ambulatory Limitations: no limitations History of Present Illness HPI Narrative: Patient is a 38-year-old female who presents with sinus pressure, sore throat, fatigue and nausea that started yesterday. Patient has been taking DayQuil and NyQuil with no relief. Patient has history of tonsillectomy but states this feels like last time she had strep throat. Patient denies any fever, chills. Related Data Home Medications Medication Instructions Recorded Confirmed hydrochlorothiazide 12.5 mg tablet 25 mg PO DAILY 08/04/21 10/22/23 lisinopril 40 mg tablet 40 mg PO DAILY 08/04/21 10/22/23 clonazepam 1 mg tablet 1 mg PO BID 10/06/23 10/22/23 venlafaxine 150 mg 150 mg PO DAILY 10/22/23 10/22/23 capsule,extended release 24 hr venlafaxine 75 mg capsule,extended 75 mg PO DAILY 10/22/23 10/22/23 release 24 hr Allergies Allergy/AdvReac Type Severity Reaction Status Date / Time No Known Allergies Allergy Verified 10/22/23 17:09 Review of Systems Review of Systems: All systems reviewed & are unremarkable except as noted in HPI and below Constitutional: Constitutional: Denies body ache(s), Denies chills, Reports fatigue, Denies fever(s), Denies headache(s), Denies malaise and Denies weakness Eyes: Eyes: Denies blurry vision, Denies itchy eyes and Denies loss of vision ENT: Denies otalgia, Denies headache(s), Reports nasal congestion, Denies sinus pain, Reports sinus pressure and Reports sore throat Cardiovascular: Cardiovascular: Denies chest pain, Denies irregular heart rhythm and Denies dyspnea Respiratory: Respiratory: Reports cough and Denies dyspnea Gastrointestinal: Gastrointestinal: Denies abdominal pain, Denies diarrhea, Reports nausea and Denies vomiting Musculoskeletal: Musculoskeletal: Denies back pain, Denies myalgias and Denies arthralgias Integumentary/Breasts: Skin/Breast: Denies pruritus and Denies rash Neurologic: Denies headache(s), Denies loss of vision and Denies weakness Psychiatric: Psychiatric: Reports no additional psychiatric complaints Endocrine: Endocrine: Denies fatigue Allergic/Immunologic: Allergic/Immunologic: Denies itchy eyes PMFSH Past Medical History Medical History Abdominal pain Anxiety Cholelithiases Dysphagia GERD (gastroesophageal reflux disease) HTN (hypertension) Obese KRISTINA (obstructive sleep apnea) she does not wear her CPAP machine she has an oral apparatus. Surgical History Surgical History H/O abdominal surgery due to postop postop complication H/O tubal ligation H/O: X3 Hx of tonsillectomy Family History Family History Father Diabetes mellitus Sibling Hypertension Asthma Social History Social History Social History: the patient is and lives with her . They have 3 children together. She is a lifelong nonsmoker. She does not use any alcohol marijuana or illicit drugs. 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 Code status full code Smoking status: Never smoker Second hand tobacco smoke exposure: No Alcohol intake: never Alcohol use details: very rarely Substance use: never Substance use type: does not use Living arrangements: with family Spiritual care concerns: No Comments At time of signature, agree with nursing past medical, surgical, social and family history. There is no relevant family history pertinent to the presenting complaint. Exam Const: General: cooperative, healthy appearing, comfortable, no acute distress and well nourished Nutr
[2023-10-22 17:13] VITALS: BP 129/79; PULSE 90; RESP 16; TEMP 37.1; O2SAT 100
== END 2023-10-22 17:32 | disposition home or self-care (01) ==
PROVIDERS: Emergency Provider Nurse Practitioner Family; PCP Internal Medicine
DX: J02.9 Acute pharyngitis, unspecified (principal); K21.9 Gastro-esophageal reflux disease without esophagitis; I10 Essential (primary) hypertension; G47.33 Obstructive sleep apnea (adult) (pediatric); E66.9 Obesity, unspecified; Z68.41 Body mass index [BMI] 40.0-44.9, adult; F41.9 Anxiety disorder, unspecified
CPT/HCPCS: 99213; G0463

== ENCOUNTER → 2023-10-24 15:30 | Outpatient (CLI) | payer OTHER, SELFPAY ==
--- NOTE | ~2023-10-24 | MR_ITS ---
MRI of the lumbar spine Clinical History: Back pain Technique: Axial T2-weighted images, and sagittal T1-weighted, T2-weighted, and T2 fat-sat images wer e acquired. Findings: There is no fracture or subluxation of the lumbar spine. Vertebral bodies maintain normal h eight and alignment. No bone marrow signal abnormality seen. No disc bulge or herniation seen at any lumbar level. There is mild disc desiccation L4-L5. There are mild to moderate facet joint degenerative changes throughout the lumbar spine. No spinal canal steno sis identified in level. There is minimal bilateral neural foraminal narrowing at L4-L5. Remaining ne ural foramina are preserved. Paravertebral soft tissues are unremarkable. Impression: Minimal degenerative spondylosis at L4-L5, as above. Reviewed, dictated and finalized at [facility]. 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
== END ==
PROVIDERS: PCP Chiropractor; Visit Provider Chiropractor
DX: M43.06 Spondylolysis, lumbar region (principal); M54.50 Low back pain, unspecified
CPT/HCPCS: 72148

== ENCOUNTER 2023-11-06 17:17 | Outpatient (CLI) | payer OTHER, SELFPAY ==
--- NOTE | ~2023-11-06 | XR_ITS ---
EXAMINATION: XR_CERV2-3V_CR DATE: 11/06/2023 17:35 INDICATION: Shoulder and neck pain. TECHNIQUE: 3 views of cervical spine were obtained. COMPARISON: None. FINDINGS: There is 2 mm retrolisthesis of C4 on C5. There is severely decreased disc height at C4-C5. There is mild chronic anterior wedging of C5 vertebral body. The facet joints are unremarkable. Ther e is mild central canal stenosis at C4-C5. No prevertebral soft tissue swelling. IMPRESSION: 1. Severe spondylosis at C4-5. Reviewed, dictated and finalized at location E. T MASTER
== END 2023-11-06 17:18 | disposition home or self-care (01) ==
PROVIDERS: PCP Chiropractor
DX: M47.892 Other spondylosis, cervical region (principal)
CPT/HCPCS: 72040

== ENCOUNTER 2023-11-17 14:12 | Emergency (ER) | payer OTHER, SELFPAY ==
[2023-11-17 14:41] VITALS: BP 125/90; PULSE 85; RESP 16; TEMP 36.6; O2SAT 100
--- NOTE | 2023-11-17 14:51 | ED.EAR ---
HPI - Ear Problem General Chief complaint: Ear Stated complaint: can't hear/rt ear Time Seen by Provider: 11/17/23 14:50 Source: patient Mode of arrival: ambulatory Limitations: no limitations History of Present Illness HPI Narrative: Moriah is a 38-year-old female patient presenting to the clinic today with complaints of difficulty hearing in the right ear. She reports no fever or chills. Has some chronic nasal drainage/sinus drainage. Related Data Home Medications Medication Instructions Recorded Confirmed hydrochlorothiazide 12.5 mg tablet 25 mg PO DAILY 08/04/21 11/17/23 lisinopril 40 mg tablet 40 mg PO DAILY 08/04/21 11/17/23 clonazepam 1 mg tablet 1 mg PO BID 10/06/23 11/17/23 venlafaxine 150 mg 150 mg PO DAILY 10/22/23 11/17/23 capsule,extended release 24 hr venlafaxine 75 mg capsule,extended 75 mg PO DAILY 10/22/23 11/17/23 release 24 hr Allergies Allergy/AdvReac Type Severity Reaction Status Date / Time No Known Allergies Allergy Verified 11/17/23 14:46 Review of Systems Review of Systems: Pertinent positives per HPI. Patient denies any fever, chills, rash, headache, visual changes, dizziness, cough, runny nose, sore throat, shortness of breath, chest pain, palpitations, nausea, vomiting, diarrhea, constipation, abdominal pain, or any urinary issues. [facility] Past Medical History Medical History Abdominal pain Anxiety Cholelithiases Dysphagia GERD (gastroesophageal reflux disease) HTN (hypertension) Obese KRISTINA (obstructive sleep apnea) she does not wear her CPAP machine she has an oral apparatus. Surgical History Surgical History H/O abdominal surgery due to postop postop complication H/O tubal ligation H/O: X3 Hx of tonsillectomy Family History Family History Father Diabetes mellitus Sibling Hypertension Asthma Social History Social History Social History: the patient is and lives with her . They have 3 children together. She is a lifelong nonsmoker. She does not use any alcohol marijuana or illicit drugs. 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 Code status full code Smoking status: Never smoker Second hand tobacco smoke exposure: No Alcohol intake: never Alcohol use details: very rarely Substance use: never Substance use type: does not use Living arrangements: with family Spiritual care concerns: No Comments At the time of my signature, I reviewed and agree with the nursing past medical, surgical, social, and family history. There is no relevant family history pertinent to the patient complaint. Exam Narrative: General: Well-developed, well nourished, in no apparent distress Head: Normocephalic, atraumatic Eyes: Pupils equally round and reactive to light bilaterally, EOM intact, sclera and conjunctive clear, no discharge, lids normal Ears: Left tMs intact and clear, her right TM intact, bulging, with fluid noted behind the TM, ear canals clear, no drainage, grossly hearing normal. Nose: Nares patent, no discharge, no inflammation, no sinus tenderness. Mouth: Oropharynx without lesions or masses, good dentition, MMM. Neck: Supple, trachea midline, no enlargement of anterior or posterior cervical nodes, no thyroid masses or goiter palpable. Cardio: Regular rate and rhythm, s1 and s2 normal, no murmur appreciated. Resp: Clear to auscultation bilaterally anteriorly and posteriorly, no rhonchi, rales, wheezing or rubs Course Course Emergency Course: Portions of this record may have been created with voice recognition software. Level of Care: Express Care Visit Vital Signs Vital signs: Vital Signs Temperature 36.6
== END 2023-11-17 15:03 | disposition home or self-care (01) ==
PROVIDERS: Emergency Provider Nurse Practitioner Family
DX: H65.01 Acute serous otitis media, right ear (principal); K21.9 Gastro-esophageal reflux disease without esophagitis; I10 Essential (primary) hypertension; G47.33 Obstructive sleep apnea (adult) (pediatric); F41.9 Anxiety disorder, unspecified
CPT/HCPCS: 99213; G0463

== ENCOUNTER 2024-03-22 08:01 | Emergency (ER) | payer OTHER, SELFPAY ==
--- NOTE | 2024-03-22 08:07 | ED.FEMALEGU ---
HPI - Female Genitourinary General Chief complaint: Urogenital-Female Stated complaint: UTI SYMPTOMS Time Seen by Provider: 03/22/24 08:13 Source: patient and RN notes reviewed Mode of arrival: ambulatory Limitations: no limitations History of Present Illness HPI Narrative: 38-year-old female presents with concern for dysuria, hematuria, frequency, small amount of urine that started yesterday. She denies fever, aches, chills, sweats. Reports some mild nausea without vomiting. She reports she starting to have a flare of her chronic pancreatitis and has some abdominal pain from that. She reports she has had this before and knows she needs to go to the ER if the pain becomes severe. She has not taken any medication for her symptoms MD elicited complaint: UTI Related Data Home Medications Medication Instructions Recorded Confirmed hydrochlorothiazide 12.5 mg tablet 25 mg PO DAILY 08/04/21 03/22/24 lisinopril 40 mg tablet 40 mg PO DAILY 08/04/21 03/22/24 clonazepam 1 mg tablet 1 mg PO BID 10/06/23 03/22/24 venlafaxine 150 mg 150 mg PO DAILY 10/22/23 03/22/24 capsule,extended release 24 hr venlafaxine 75 mg capsule,extended 75 mg PO DAILY 10/22/23 03/22/24 release 24 hr Allergies Allergy/AdvReac Type Severity Reaction Status Date / Time No Known Allergies Allergy Verified 03/22/24 08:17 Review of Systems Review of Systems: CONSTITUTIONAL: Denies malaise, chills, sweats, or fever. CARDIOVASCULAR: Denies chest pain, palpitations, or edema. RESPIRATORY: Denies cough or dyspnea. GASTROINTESTINAL: Reports left upper quadrant abdominal pain, nausea. Denies vomiting, diarrhea GENITOURINARY: Reports dysuria, frequency, urgency, hematuria. SKIN: Denies rash or itching. MUSCULOSKELETAL: Denies back pain or myalgia. All systems reviewed & are unremarkable except as noted in HPI and below PMFSH Past Medical History Medical History Abdominal pain Anxiety Cholelithiases Dysphagia GERD (gastroesophageal reflux disease) HTN (hypertension) Obese KRISTINA (obstructive sleep apnea) she does not wear her CPAP machine she has an oral apparatus. Surgical History Surgical History H/O abdominal surgery due to postop postop complication H/O tubal ligation H/O: X3 Hx of tonsillectomy Family History Family History Father Diabetes mellitus Sibling Hypertension Asthma Social History Social History Social History: the patient is and lives with her . They have 3 children together. She is a lifelong nonsmoker. She does not use any alcohol marijuana or illicit drugs. 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 Code status full code Smoking status: Never smoker Second hand tobacco smoke exposure: No Alcohol intake: never Alcohol use details: very rarely Substance use: never Substance use type: does not use Living arrangements: with family Spiritual care concerns: No Comments At time of signature, agree with nursing past medical, surgical, social and family history. There is no relevant family history pertinent to the presenting complaint Exam Narrative: GENERAL: Well-appearing, well-nourished, and in no acute distress. HEAD: Normocephalic. EYES: PERRLA, conjunctivae clear. NECK: Supple. No lymphadenopathy CHEST: Clear to auscultation. No respiratory distress. HEART: Regular rate and rhythm. ABDOMEN: Soft, nontender upon palpation, nondistended, normal active bowel sounds, no palpable or pulsatile masses, no guarding. No CVA tenderness SKIN: Warm, dry, no rash. NEURO: Alert and oriented x3. PSYCH: Normal mood and affect Course Course Emergency Course: Patient is aware o
[2024-03-22 08:10] VITALS: BP 118/84; PULSE 78; RESP 16; TEMP 36.6; O2SAT 99
== END 2024-03-22 08:27 | disposition home or self-care (01) ==
PROVIDERS: Emergency Provider Nurse Practitioner; PCP Family Medicine
DX: N39.0 Urinary tract infection, site not specified (principal); B96.20 Unspecified Escherichia coli [E. coli] as the cause of diseases classified elsewhere; K21.9 Gastro-esophageal reflux disease without esophagitis; I10 Essential (primary) hypertension; G47.33 Obstructive sleep apnea (adult) (pediatric); E66.9 Obesity, unspecified; Z68.41 Body mass index [BMI] 40.0-44.9, adult; F41.9 Anxiety disorder, unspecified
CPT/HCPCS: 81003; 87077; 87086; 87088; 87186; 99213; G0463

== ENCOUNTER 2024-05-11 08:23 | Emergency (ER) | payer OTHER, SELFPAY ==
[2024-05-11 08:33] VITALS: BP 112/85; PULSE 68; RESP 16; TEMP 36.8; O2SAT 99
--- NOTE | 2024-05-11 08:43 | ED.URI ---
HPI - URI/Sore Throat General Chief Complaint: Upper Respiratory Infection Stated Complaint: Ear Pain/Sore Throat Time Seen by Provider: 05/11/24 08:35 Source: patient Mode of arrival: ambulatory Limitations: no limitations History of Present Illness HPI Narrative: Moriah is a 38-year-old female patient presenting to the clinic today with complaints of with complaints of sinus pain, right ear pain, and a sore throat. Reports her symptoms have been going on for 2 weeks. Has had some green nasal drainage. States that she is having pain over the right side of the frontal sinuses. She denies any fever or chills. MD elicited complaint: cough, sore throat, rhinorrhea, nasal congestion and sinus pain Related Data Home Medications Medication Instructions Recorded Confirmed hydrochlorothiazide 12.5 mg tablet 25 mg PO DAILY 08/04/21 05/11/24 lisinopril 40 mg tablet 40 mg PO DAILY 08/04/21 05/11/24 clonazepam 1 mg tablet 1 mg PO BID 10/06/23 05/11/24 venlafaxine 150 mg 150 mg PO DAILY 10/22/23 05/11/24 capsule,extended release 24 hr venlafaxine 75 mg capsule,extended 75 mg PO DAILY 10/22/23 05/11/24 release 24 hr amlodipine 5 mg tablet 5 mg PO DAILY 05/11/24 05/11/24 dicyclomine 20 mg tablet 20 mg PO DAILY 05/11/24 05/11/24 Allergies Allergy/AdvReac Type Severity Reaction Status Date / Time No Known Allergies Allergy Verified 05/11/24 08:38 Review of Systems Review of Systems: Pertinent positives per HPI. Patient denies any fever, chills, rash, visual changes, dizziness, shortness of breath, chest pain, palpitations, nausea, vomiting, diarrhea, constipation, abdominal pain, or any urinary issues. ON LICENSE OF [facility] Past Medical History Medical History Abdominal pain Anxiety Cholelithiases Dysphagia GERD (gastroesophageal reflux disease) HTN (hypertension) Obese KRISTINA (obstructive sleep apnea) she does not wear her CPAP machine she has an oral apparatus. Surgical History Surgical History H/O abdominal surgery due to postop postop complication H/O tubal ligation H/O: X3 Hx of tonsillectomy Family History Family History Father Diabetes mellitus Sibling Hypertension Asthma Social History Social History Social History: the patient is and lives with her . They have 3 children together. She is a lifelong nonsmoker. She does not use any alcohol marijuana or illicit drugs. 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 Her is the durable power assistant county attorney for healthcare. Code status full code Smoking status: Never smoker Second hand tobacco smoke exposure: No Alcohol intake: never Alcohol use details: very rarely Substance use: never Substance use type: does not use Living arrangements: with family Spiritual care concerns: No Comments At the time of my signature, I reviewed and agree with the nursing past medical, surgical, social, and family history. There is no relevant family history pertinent to the patient complaint. Exam Narrative: General: Well-developed,morbidly obese, in no apparent distress Head: Normocephalic, atraumatic Eyes: Pupils equally round and reactive to light bilaterally, EOM intact, sclera and conjunctive clear, no discharge, lids normal Ears: Left TMs intact and congested, Right TM intact, bulging, opaque with loss of light reflex, ear canals clear, no drainage, grossly hearing normal. Nose: Nares patent, green nasal discharge, moderate inflammation, right frontal sinus tenderness. Mouth: Oral pharynx without lesions or masses, good dentition, MMM. Neck: Supple, trachea midline, no enlargement of anterior or posterior cervical nodes, no thyroid masses or goiter palpable. Cardio: Regular rate and rhythm, s1
== END 2024-05-11 08:50 | disposition home or self-care (01) ==
PROVIDERS: Emergency Provider Nurse Practitioner Family; PCP Family Medicine
DX: J01.90 Acute sinusitis, unspecified (principal); H66.91 Otitis media, unspecified, right ear; K21.9 Gastro-esophageal reflux disease without esophagitis; I10 Essential (primary) hypertension; E66.9 Obesity, unspecified; Z68.41 Body mass index [BMI] 40.0-44.9, adult; F41.9 Anxiety disorder, unspecified
CPT/HCPCS: 87880; 99213; G0463

== ENCOUNTER 2024-05-31 08:23 | Emergency (ER) | payer OTHER, SELFPAY ==
[2024-05-31 08:34] VITALS: BP 112/87; PULSE 75; RESP 16; TEMP 36.6; O2SAT 100
--- NOTE | 2024-05-31 08:43 | ED.EAR ---
HPI - Ear Problem General Chief complaint: Ear Stated complaint: EARACHE Time Seen by Provider: 05/31/24 08:43 History of Present Illness HPI Narrative: patient complains of right-sided ear pain. She reports symptoms began a couple of weeks ago, she was seen and treated for the same complaint. She admits that she started feeling better while taking prednisone, and forgot to finish her antibiotics. She states symptoms began once again a few days ago. She reports that pain is intermittent, sometimes quite severe, not bothering her terribly right this minute. She denies any fever, chills, sweats. She denies any injury or trauma. She voices no other concerns or complaints at this time Related Data Home Medications Medication Instructions Recorded Confirmed hydrochlorothiazide 12.5 mg tablet 25 mg PO DAILY 08/04/21 05/31/24 lisinopril 40 mg tablet 40 mg PO DAILY 08/04/21 05/31/24 clonazepam 1 mg tablet 1 mg PO BID 10/06/23 05/31/24 venlafaxine 150 mg 150 mg PO DAILY 10/22/23 05/31/24 capsule,extended release 24 hr venlafaxine 75 mg capsule,extended 75 mg PO DAILY 10/22/23 05/31/24 release 24 hr amlodipine 5 mg tablet 5 mg PO DAILY 05/11/24 05/31/24 dicyclomine 20 mg tablet 20 mg PO DAILY 05/11/24 05/31/24 Allergies Allergy/AdvReac Type Severity Reaction Status Date / Time No Known Allergies Allergy Verified 05/31/24 08:32 Review of Systems Review of Systems: All systems reviewed & are unremarkable except as noted in HPI and below Constitutional: Constitutional: Reports no additional constitutional complaints ENT: Reports system reviewed and no additional complaints, except as documented, Denies ear discharge and Reports otalgia (right) Cardiovascular: Cardiovascular: Reports no additional cardiovascular complaints Respiratory: Respiratory: Reports no additional respiratory complaints Gastrointestinal: Gastrointestinal: Reports no additional gastrointestinal complaints PMFSH Past Medical History Medical History Abdominal pain Anxiety Cholelithiases Dysphagia GERD (gastroesophageal reflux disease) HTN (hypertension) Obese KRISTINA (obstructive sleep apnea) she does not wear her CPAP machine she has an oral apparatus. Surgical History Surgical History H/O abdominal surgery due to postop postop complication H/O tubal ligation H/O: X3 Hx of tonsillectomy Family History Family History Father Diabetes mellitus Sibling Hypertension Asthma Social History Social History Social History: the patient is and lives with her . They have 3 children together. She is a lifelong nonsmoker. She does not use any alcohol marijuana or illicit drugs. 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 Code status full code Smoking status: Never smoker Second hand tobacco smoke exposure: No Alcohol intake: never Alcohol use details: very rarely Substance use: never Substance use type: does not use Living arrangements: with family Spiritual care concerns: No Exam Const: General: cooperative, no acute distress, alert and awake Orientation/consciousness: oriented to person, oriented to place and oriented to time HENMT: Head: normal to inspection Ears: TM normal on the left and TM abnormal (right) bulging, erythematous and with loss of landmarks Neck: Lymphatic: lymphadenopathy not noted Resp: Effort & Inspection: normal respiratory effort and able to speak in complete sentences Auscultation: clear to auscultation bilaterally, no crackles, no rales, no rhonchi and no wheezes Cardio: Palpation: normal PMI Rate: regular rate Rhythm: regular rhythm Heart sounds: S1 normal heart sound present and S2
== END 2024-05-31 08:52 | disposition home or self-care (01) ==
PROVIDERS: Emergency Provider Nurse Practitioner Family; PCP Family Medicine
DX: H66.001 Acute suppurative otitis media without spontaneous rupture of ear drum, right ear (principal); K21.9 Gastro-esophageal reflux disease without esophagitis; I10 Essential (primary) hypertension; E66.9 Obesity, unspecified; Z68.41 Body mass index [BMI] 40.0-44.9, adult; G47.33 Obstructive sleep apnea (adult) (pediatric); F41.9 Anxiety disorder, unspecified
CPT/HCPCS: 99213; G0463

== ENCOUNTER 2025-01-04 08:18 | Emergency (ER) | payer OTHER, SELFPAY ==
[2025-01-04 08:31] VITALS: BP 111/79; PULSE 85; RESP 16; TEMP 36.4; O2SAT 99
--- NOTE | 2025-01-04 08:43 | ED_ITS ---
HPI - Back Pain/Injury General Chief Complaint: Back Pain/Injury Stated Complaint: Back Pain Time Seen by Provider: 01/04/25 08:35 Source: patient Mode of arrival: ambulatory Limitations: no limitations History of Present Illness HPI Narrative: Moriah is a 39-year-old female patient presenting to the clinic today with complaints of upper back pain. She reports 2-3 days ago she bent down picking up something and developed a pain in her right upper back. States the pain is all in achy in nature. Is painful with taking a deep breath or movement. Denies any cough or URI symptoms. Denies any shortness of breath or chest pain. Has used some Biofreeze with some relief. Related Data Home Medications ?Medication ?Instructions ?Recorded ?Confirmed ?Last Taken ?Type hydrochlorothiazide 12.5 mg tablet 25 mg PO DAILY 08/04/21 05/31/24 09/22/21 History lisinopril 40 mg tablet 40 mg PO DAILY 08/04/21 05/31/24 09/22/21 History venlafaxine 150 mg 150 mg PO DAILY 10/22/23 05/31/24 Unknown History capsule,extended release 24 hr venlafaxine 75 mg capsule,extended 75 mg PO DAILY 10/22/23 05/31/24 Unknown History release 24 hr amlodipine 5 mg tablet 5 mg PO DAILY 05/11/24 05/31/24 Unknown History dicyclomine 20 mg tablet 20 mg PO DAILY 05/11/24 05/31/24 Unknown History Allergies Allergy/AdvReac Type Severity Reaction Status Date / Time No Known Allergies Allergy Verified 01/04/25 08:35 Review of Systems Review of Systems: Pertinent positives per HPI. Patient denies any fever, chills, rash, headache, visual changes, dizziness, cough, runny nose, sore throat, shortness of breath, chest pain, palpitations, nausea, vomiting, diarrhea, constipation, abdominal pain, or any urinary issues. FORMERLY [facility] Past Medical History Medical History Abdominal pain Anxiety Cholelithiases Dysphagia GERD (gastroesophageal reflux disease) HTN (hypertension) Obese KRISITNA (obstructive sleep apnea) she does not wear her CPAP machine she has an oral apparatus. Surgical History Surgical History H/O tubal ligation H/O abdominal surgery due to postop postop complication Hx of tonsillectomy H/O: X3 Family History Family History Father Diabetes mellitus Sibling Hypertension Asthma Social History Social History Social History: the patient is and lives with her . They have 3 children together. She is a lifelong nonsmoker. She does not use any alcohol marijuana or illicit drugs. 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 Code status full code Smoking status: Never smoker Second hand tobacco smoke exposure: No Alcohol intake: never Alcohol use details: very rarely Substance use: never Substance use type: does not use Living arrangements: with family Spiritual care concerns: No Comments At the time of my signature, I reviewed and agree with the nursing past medical, surgical, social, and family history. There is no relevant family history pertinent to the patient complaint. Exam Narrative: General: Well-developed, well nourished, in no apparent distress Head: Normocephalic, atraumatic. Cardio: Regular rate and rhythm, s1 and s2 normal, no murmur appreciated. Resp: Clear to auscultation bilaterally, no rhonchi, rales, wheezing or rubs. Musculoskeletal: No deformity, pain to the right upper back musculature/right trapezius, pain nonradiating, grossly normal range of motion, muscle strength st [facility] and equal in BLE. SLT negative, patellar reflexes 2/4 bilaterally, negative foot drop, normal gait and station Course Course Emergency Course: Portions of this record may have been created with voice recognition software. Level of Care: Express Care Visit Vital Signs Vital signs: Vital Signs Temperature 36.4 C L 01/04/25 08:31 Pulse Rate 85 01/04/25 08:31 Respiratory Rate 16 01/04/25 08:31 Blood Pressure 111/79 01/04/25 08:31 Pulse Oximetry 99 01/04/25 08:31 Temperature 36.4 C L 01/04/25 08:31 Pulse Rate 85 01/04/25 08:31 Respiratory Rate 16 01/04/25 08:31 Blood Pressure 111/79 01/04/25 08:31 Pulse Oximetry 99 01/04/25 08:31 Vital signs reviewed MDM - Back Pain/Injury MDM Narrative Medical decision making narrative: At the time of visit patient is resting comfortably on the exam table. Patient appears to be nontoxic. Plan: I suspect patient has a right upper back muscle strain. Prescription for Flexeril and Medrol Dosepak was sent to the pharmacy. Supportive measures were discussed with the patient and they voiced understanding discharge instructions and agrees to treatment plan. Return precautions reviewed Differential Diagnosis Differential diagnosis: Likely lumbar radiculopathy, thoracic back pain and other (Muscle strain, chest wall pain, rib contusion) Discharge Plan Discharge Clinical Impression: Muscle strain of right upper back Qualifiers: Encounter type: initial encounter Qualified Code(s): S29.012A - Strain of muscle and tendon of back wall of thorax, initial encounter Patient Disposition: Home, Self-Care Condition: Stable Instructions: Antibiotic Form, Thoracic Back Strain (ED) Additional Instructions: Take any prescription medication only as prescribed-Medrol Dosepak and cyclobenzaprine Be mindful of sedation precautions given to you if taking a muscle relaxer. May use heat or ice to the affected area Consider massage or chiropractor adjustment if this was discussed with provider May use blue emu, lidocaine patches, or asper cream to affected area- do not apply heat or ice directly over cream- can cause burn. Complete appropriate back stretching exercises. Follow up with your PCP in 3-5 days if symptom persist. Patient Language: Serbian Prescriptions: New methylprednisolone [Medrol (Mitchell)] 4 mg tablets,dose pack See Rx Instructions PO .COMPLEX Qty: 21 0RF Rx Instructions: orally per package directions cyclobenzaprine 10 mg tablet 10 mg PO Q8H PRN (Reason: muscle spasm) 7 Days Qty: 21 0RF No Action venlafaxine 75 mg capsule,extended release 24hr 75 mg PO DAILY venlafaxine 150 mg capsule,extended release 24hr 150 mg PO DAILY amlodipine 5 mg tablet 5 mg PO DAILY dicyclomine 20 mg tablet 20 mg PO DAILY lisinopril 40 mg tablet 40 mg PO DAILY hydrochlorothiazide 12.5 mg tablet 25 mg PO DAILY Follow-up/Referrals: Allyson,Erick Gutierrez MD [Primary Care Provider] - Time of Disposition: 08:44 Quality NIHSS Nursing Documentation ED NIHSS nursing documentation: reviewed/agree
== END 2025-01-04 08:50 | disposition home or self-care (01) ==
PROVIDERS: Emergency Provider Nurse Practitioner Family; PCP Family Medicine
DX: S29.012A Strain of muscle and tendon of back wall of thorax, initial encounter (principal); X58.XXXA Exposure to other specified factors, initial encounter; I10 Essential (primary) hypertension; K21.9 Gastro-esophageal reflux disease without esophagitis; F41.9 Anxiety disorder, unspecified; E66.9 Obesity, unspecified; Z68.41 Body mass index [BMI] 40.0-44.9, adult; G47.33 Obstructive sleep apnea (adult) (pediatric)
CPT/HCPCS: 99213; G0463

== ENCOUNTER 2025-03-03 17:04 | Emergency (ER) | payer OTHER, SELFPAY ==
--- NOTE | 2025-03-03 17:08 | ED_ITS ---
HPI - URI/Sore Throat General Chief Complaint: Upper Respiratory Infection Stated Complaint: SINUS/HEADACHE/SCRATCHY THROAT & PAINFUL URINATION Time Seen by Provider: 03/03/25 17:20 Source: patient Mode of arrival: ambulatory Limitations: no limitations History of Present Illness HPI Narrative: Moriah is a 39-year-old female patient presenting to the clinic today with complaints of sinus congestion, headache, scratchy throat, and feeling as though she needs to void but is not completely emptying her bladder. She reports headache, sinus congestion and scratchy throat started yesterday and urinary symptoms started today. Has been taking sudafed for her symptoms. Related Data Home Medications ?Medication ?Instructions ?Recorded ?Confirmed ?Last Taken ?Type hydrochlorothiazide 12.5 mg tablet 25 mg PO DAILY 08/04/21 05/31/24 09/22/21 History lisinopril 40 mg tablet 40 mg PO DAILY 08/04/21 05/31/24 09/22/21 History venlafaxine 150 mg 150 mg PO DAILY 10/22/23 05/31/24 Unknown History capsule,extended release 24 hr venlafaxine 75 mg capsule,extended 75 mg PO DAILY 10/22/23 05/31/24 Unknown History release 24 hr amlodipine 5 mg tablet 5 mg PO DAILY 05/11/24 05/31/24 Unknown History dicyclomine 20 mg tablet 20 mg PO DAILY 05/11/24 05/31/24 Unknown History Allergies Allergy/AdvReac Type Severity Reaction Status Date / Time No Known Allergies Allergy Verified 03/03/25 17:22 Review of Systems Review of Systems: Pertinent positives per HPI. Patient denies any fever, chills, rash, visual changes, dizziness, shortness of breath, chest pain, palpitations, nausea, vomiting, diarrhea, constipation, abdominal pain PMFSH Past Medical History Medical History Anxiety GERD (gastroesophageal reflux disease) KRISTINA (obstructive sleep apnea) she does not wear her CPAP machine she has an oral apparatus. HTN (hypertension) Obese Dysphagia Abdominal pain Cholelithiases Surgical History Surgical History H/O tubal ligation H/O abdominal surgery due to postop postop complication Hx of tonsillectomy H/O: X3 Family History Family History Father Diabetes mellitus Sibling Hypertension Asthma Social History Social History Social History: the patient is and lives with her . They have 3 children together. She is a lifelong nonsmoker. She does not use any alcohol marijuana or illicit drugs. 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 Code status full code Smoking status: Never smoker Second hand tobacco smoke exposure: No Alcohol intake: never Alcohol use details: very rarely Substance use: never Substance use type: does not use Living arrangements: with family Spiritual care concerns: No Comments At the time of my signature, I reviewed and agree with the nursing past medical, surgical, social, and family history. There is no relevant family history pertinent to the patient complaint. Exam Narrative: General: Well-developed, well nourished, in no apparent distress Head: Normocephalic, atraumatic Eyes: Pupils equally round and reactive to light bilaterally, EOM intact, sclera and conjunctive clear, no discharge, lids normal Ears: TMs intact and congested, ear canals clear, no drainage, grossly hearing normal. Nose: Nares patent, clear nasal discharge, no inflammation, no sinus tenderness. Mouth: Oral pharynx without lesions or masses, good dentition, MMM. Tonsils chrystal gically absent Neck: Supple, trachea midline, no enlargement of anterior or posterior cervical nodes, no thyroid masses or goiter palpable. Cardio: Regular rate and rhythm, s1 and s2 normal, no murmur appreciated. Resp: Clear to auscultation bilaterally, no rhonchi, rales, wheezing or rubs Abdomen: Soft, pliable, bowel sounds present in all quadrants, non-tender to palpation, no organomegly, no CVAT tenderness. Course Course Emergency Course: Portions of this record may have been created with voice recognition software. Level of Care: Express Care Visit Vital Signs Vital signs: Vital Signs Temperature 36.7 C 03/03/25 17:20 Pulse Rate 75 03/03/25 17:20 Respiratory Rate 18 03/03/25 17:20 Blood Pressure 138/101 H 03/03/25 17:20 Pulse Oximetry 99 03/03/25 17:20 Oxygen Delivery Room Air 03/03/25 17:20 Temperature 36.7 C 03/03/25 17:20 Pulse Rate 75 03/03/25 17:20 Respiratory Rate 18 03/03/25 17:20 Blood Pressure 144/104 H 03/03/25 17:21 Pulse Oximetry 99 03/03/25 17:20 Oxygen Delivery Room Air 03/03/25 17:20 Vital signs reviewed MDM - URI/Sore Throat MDM Narrative Medical decision making narrative: At the time of visit patient is resting comfortably on the exam table. Patient appears to be nontoxic. Labs: Urinalysis positive for leukocytes, blood, and protein. We will send urine for culture. Offer to do COVID and strep testing and patient declined Plan: I suspect patient has URI with a UTI. Prescription for Augmentin was sent to the pharmacy. Send urine for culture. Supportive measures were discussed with the patient and they voiced understanding discharge instructions and agrees to treatment plan. Return precautions reviewed Differential Diagnosis Differential diagnosis: Likely upper respiratory infection, otitis media, sinusitis, viral infection, bronchitis, influenza, pharyngitis and other (COVID, urinary tract infection) Lab Data Labs: Lab Results 03/03/25 Range/Units 17:36 POC Urine Color Yellow POC Urine Clarity Clear POC Urine pH 6.5 POC Ur Specif [place] 1.030 POC Urine Protein 2+ (Negative) POC Ur Glucose (UA) Negative (Negative) POC Urine Ketones Negative (Negative) POC Urine Blood 2+ (Negative) POC Urine Nitrite Negative (Negative) POC Urine Bilirubin Negative (Negative) POC Urine Urobilinogen 1.0 POC U Leukocyte Esteras Trace (Negative) Discharge Plan Discharge Clinical Impression: Upper respiratory infection Qualifiers: URI type: unspecified URI Qualified Code(s): J06.9 - Acute upper respiratory infection, unspecified UTI (urinary tract infection) Qualifiers: Urinary tract infection type: acute cystitis Hematuria presence: with hematuria Qualified Code(s): N30.01 - Acute cystitis with hematuria Patient Disposition: Home Condition: Stable Instructions: Antibiotic Form, Urinary Tract Infection in Women (ED), Cold Symptoms (ED) Additional Instructions: Upper respiratory infection instructions May take Coricidin HBP for cold/flu symptoms Increase fluids and stay well hydrated Tylenol/motrin for pain/fever Flonase and OTC antihistamines as directed Vicks vapor rub to open sinuses Sinus rinses for congestion Cepacol spray, cough drops, throat lozenges, warm tea with honey/lemon, gargle salt water to soothe throat BRAT diet for diarrhea Clear liquids x 24 hours then advance as tolerated for nausea/vomiting Go to the ED if you develop a worsening in your condition- high fever not controlled by Tylenol or Motrin, dehydration, weakness, lethargy, shortness of breath, or chest pain. Follow up with your PCP in 3-5 days if symptoms persist. UTI discharge instructions Urinalysis positive for leukocytes, protein, and blood- Will send for culture Take Augmentin as prescribed Increase fluids and stay well hydrated Wipe front to back. May use wet wipes. Avoid tub baths If sexually active- pee before and after intercourse. Wear cotton panties Avoid tight clothing up against the genitals Follow up with your PCP in 1 week if symptoms persist. Patient Language: Azeri Prescriptions: New amoxicillin-pot clavulanate 875-125 mg tablet 1 tablet PO Q12H 7 Days Qty: 14 0RF No Action venlafaxine 75 mg capsule,extended release 24hr 75 mg PO DAILY venlafaxine 150 mg capsule,extended release 24hr 150 mg PO DAILY amlodipine 5 mg tablet 5 mg PO DAILY dicyclomine 20 mg tablet 20 mg PO DAILY methylprednisolone [Medrol (Mitchell)] 4 mg tablets,dose pack See Rx Instructions PO .COMPLEX Qty: 21 0RF Rx Instructions: orally per package directions cyclobenzaprine 10 mg tablet 10 mg PO Q8H PRN (Reason: muscle spasm) 7 Days Qty: 21 0RF lisinopril 40 mg tablet 40 mg PO DAILY hydrochlorothiazide 12.5 mg tablet 25 mg PO DAILY Follow-up/Referrals: Allyson,Erick Gutierrez MD [Primary Care Provider] - Time of Disposition: 17:38 Quality NIHSS Nursing Documentation ED NIHSS nursing documentation: reviewed/agree
[2025-03-03 17:20] VITALS: BP 138/101; PULSE 75; RESP 18; TEMP 36.7; O2SAT 99
[2025-03-03 17:21] VITALS: BP 144/104
[2025-03-03 17:39] LABS: EDUAAPPEAR Clear; EDUABILI Negative (Negative); EDUABLOOD 2+ (Negative); EDUACOLOR1 Yellow; EDUAGLUCOSE Negative (Negative); EDUAKETONE Negative (Negative); EDUALEUKO Trace (Negative); EDUANITRATE Negative (Negative); EDUAPH 6.5; EDUAPROTEIN 2+ (Negative)
== END 2025-03-03 17:39 | disposition home or self-care (01) ==
PROVIDERS: Emergency Provider Nurse Practitioner Family; PCP Family Medicine
DX: J06.9 Acute upper respiratory infection, unspecified (principal); N30.01 Acute cystitis with hematuria; K21.9 Gastro-esophageal reflux disease without esophagitis; G47.33 Obstructive sleep apnea (adult) (pediatric); I10 Essential (primary) hypertension; E66.9 Obesity, unspecified; Z68.41 Body mass index [BMI] 40.0-44.9, adult; F41.9 Anxiety disorder, unspecified
CPT/HCPCS: 81003; 87077; 87086; 87186; 99213; G0463

== ENCOUNTER 2025-04-05 11:17 | Emergency (ER) | payer OTHER, SELFPAY ==
[2025-04-05 11:25] VITALS: BP 135/84; PULSE 88; RESP 16; TEMP 36.5; O2SAT 100
--- NOTE | 2025-04-05 11:47 | ED.FEMALEGU ---
HPI - Female Genitourinary General Chief complaint: Urogenital-Female Stated complaint: UTI SYMPTOMS Source: patient Mode of arrival: ambulatory Limitations: no limitations History of Present Illness HPI Narrative: Patient is a 39 year old female who presents to [facility] with complaints of itching to the vagina and more frequent urination since yesterday. She does state that she has had some clear discharge, but she is in the middle of her cycle. Denies any concerns for STD's, burning with urination, flank pain. Related Data Home Medications Medication Instructions Recorded Confirmed Last Taken Type hydrochlorothiazide 12.5 mg tablet 25 mg PO DAILY 08/04/21 04/05/25 09/22/21 History lisinopril 40 mg tablet 40 mg PO DAILY 08/04/21 04/05/25 09/22/21 History venlafaxine 150 mg 150 mg PO DAILY 10/22/23 04/05/25 Unknown History capsule,extended release 24 hr venlafaxine 75 mg capsule,extended 75 mg PO DAILY 10/22/23 04/05/25 Unknown History release 24 hr amlodipine 5 mg tablet 5 mg PO DAILY 05/11/24 04/05/25 Unknown History dicyclomine 20 mg tablet 20 mg PO DAILY 05/11/24 05/31/24 Unknown History losartan 50 mg tablet mg 04/05/25 Unknown History Allergies Allergy/AdvReac Type Severity Reaction Status Date / Time No Known Allergies Allergy Verified 04/05/25 11:19 Review of Systems Review of Systems: CONSTITUTIONAL: Denies body aches, fever, chills, or sweats. CARDIOVASCULAR: Denies chest pain, palpitations, or edema. RESPIRATORY: Denies cough or dyspnea. GASTROINTESTINAL: Denies abdominal pain, nausea, vomiting, or diarrhea. GENITOURINARY: Denies dysuria, urgency, hematuria, flank pain, Reports clear discharge, frequency, and vaginal itching. SKIN: Denies rash, itching, or wounds. MUSCULOSKELETAL: Denies back pain or myalgia. All systems reviewed & are unremarkable except as noted in HPI and below PMFSH Past Medical History Medical History Anxiety GERD (gastroesophageal reflux disease) KRISTINA (obstructive sleep apnea) she does not wear her CPAP machine she has an oral apparatus. HTN (hypertension) Obese Dysphagia Abdominal pain Cholelithiases Surgical History Surgical History H/O tubal ligation H/O abdominal surgery due to postop postop complication Hx of tonsillectomy H/O: X3 Family History Family History Father Diabetes mellitus Sibling Hypertension Asthma Social History Social History Social History: the patient is and lives with her . They have 3 children together. She is a lifelong nonsmoker. She does not use any alcohol marijuana or illicit drugs. 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 Her is the durable power immigration attorney for healthcare. Code status full code Smoking status: Never smoker Second hand tobacco smoke exposure: No Alcohol intake: never Alcohol use details: very rarely Substance use: never Substance use type: does not use Living arrangements: with family Spiritual care concerns: No Comments At time of signature, I have reviewed and agree with nursing past medical, surgical, social and family history unless otherwise noted. Please see nursing chart for further information. There is no relevant family history pertinent to the presenting complaint. Exam Narrative: GENERAL: Well-appearing and in no acute distress. ENT: Mucous membranes pink and moist. NECK: Normal AROM. Supple. CHEST: No respiratory distress. Clear to auscultation. HEART: Regular rate and rhythm. ABDOMEN: Soft, nontender, nondistended, normal active bowel sounds. No CVA tenderness. : Patient deferred exam. SKIN: Warm, dry, no rash. NEURO: No focal deficits. Alert and oriented x3. Gait steady. PSYCH: Normal affect. Course Course Level of Care: Express Care Visit Vital Signs Vital signs: Vital Signs Temperature 97.7 F 04/05/25 11:25 Pulse Rate 88 04/05/25 11:25 Respiratory Rate 16 04/05/25 11:25 Blood Pressure 135/84 04/05/25 11:25 Pulse Oximetry 100 04/05/25 11:25 Temperature 97.7 F 04/05/25 11:25 Pulse Rate 88 04/05/25 11:25 Respiratory Rate 16 04/05/25 11:25 Blood Pressure 135/84 04/05/25 11:25 Pulse Oximetry 100 04/05/25 11:25 Reviewed. MDM - Female Genitourinary MDM Narrative Medical decision making narrative: Discussed physical exam findings. Fluconazole for vaginal yeast infection. Advised supportive measures and signs/symptoms to go to the ER. Pt is appropriate for outpatient treatment and follow up. Differential Diagnosis Differential diagnosis: Likely urinary tract infection, bacterial vaginosis and other (yeast infection, STD's) Critical Care Time Critical Care Time Critical Care Time: No Discharge Plan Discharge Clinical Impression: Vaginal yeast infection Patient Disposition: Home Condition: Stable Instructions: Antibiotic Form, Yeast Infection (ED) Additional Instructions: Take 1 pill today and in 3 days take additional pill. Do not use any scented soaps, tampons or pads. Make sure to always urinate after sex. Use non scented, non flavored condoms. Do not sit and bath with scented soaps or oils. Where cotton underwear and change underwear after exercise. Patient Language: Frisian Prescriptions: New fluconazole 150 mg tablet 150 mg PO ONCE Qty: 2 0RF No Action venlafaxine 75 mg capsule,extended release 24hr 75 mg PO DAILY venlafaxine 150 mg capsule,extended release 24hr 150 mg PO DAILY amlodipine 5 mg tablet 5 mg PO DAILY dicyclomine 20 mg tablet 20 mg PO DAILY losartan 50 mg tablet lisinopril 40 mg tablet 40 mg PO DAILY hydrochlorothiazide 12.5 mg tablet 25 mg PO DAILY Follow-up/Referrals: Allyson,Erick Gutierrez MD [Primary Care Provider] - Time of Disposition: 11:52
[2025-04-05 12:00] LABS: EDUAAPPEAR Cloudy; EDUABILI 1+ (Negative); EDUABLOOD Trace (Negative); EDUACOLOR1 Light/Pale; EDUAGLUCOSE Negative (Negative); EDUAKETONE Negative (Negative); EDUALEUKO Negative (Negative); EDUANITRATE Negative (Negative); EDUAPROTEIN 2+ (Negative)
== END 2025-04-05 11:55 | disposition home or self-care (01) ==
PROVIDERS: PCP Family Medicine
DX: B37.31 Acute candidiasis of vulva and vagina (principal); K21.9 Gastro-esophageal reflux disease without esophagitis; I10 Essential (primary) hypertension; F41.9 Anxiety disorder, unspecified; G47.33 Obstructive sleep apnea (adult) (pediatric); E66.9 Obesity, unspecified; Z68.41 Body mass index [BMI] 40.0-44.9, adult
CPT/HCPCS: 81003; 87086; 99213; G0463

== ENCOUNTER 2025-05-31 17:36 | Emergency (ER) | payer OTHER, SELFPAY ==
[2025-05-31 17:40] VITALS: BP 140/94; PULSE 76; RESP 20; TEMP 36.9; O2SAT 99
--- NOTE | 2025-05-31 17:56 | ED.URI ---
HPI - URI/Sore Throat General Chief Complaint: Ear Stated Complaint: HEADACHE/EARACHE Time Seen by Provider: 05/31/25 17:45 Source: patient and RN notes reviewed Mode of arrival: ambulatory Limitations: no limitations History of Present Illness HPI Narrative: Patient presents today with a 3 day history of a right ear pain, right-sided frontal headache, right sinus pain. She reports postnasal drip through the year. Denies fever, rhinorrhea, cough. Currently rates her pain 3/10 and has tried ibuprofen and sinus medication with mild relief. Related Data Home Medications ?Medication ?Instructions ?Recorded ?Confirmed ?Last Taken ?Type venlafaxine 150 mg 150 mg PO DAILY 10/22/23 04/05/25 Unknown History capsule,extended release 24 hr venlafaxine 75 mg capsule,extended 75 mg PO DAILY 10/22/23 04/05/25 Unknown History release 24 hr amlodipine 5 mg tablet 5 mg PO DAILY 05/11/24 04/05/25 Unknown History losartan 50 mg tablet mg 04/05/25 Unknown History Allergies Allergy/AdvReac Type Severity Reaction Status Date / Time No Known Allergies Allergy Verified 04/05/25 11:19 [facility] Past Medical History Medical History Anxiety GERD (gastroesophageal reflux disease) KRISTINA (obstructive sleep apnea) she does not wear her CPAP machine she has an oral apparatus. HTN (hypertension) Obese Dysphagia Abdominal pain Cholelithiases Surgical History Surgical History H/O tubal ligation H/O abdominal surgery due to postop postop complication Hx of tonsillectomy H/O: X3 Family History Family History Father Diabetes mellitus Sibling Hypertension Asthma Social History Social History Social History: the patient is and lives with her . They have 3 children together. She is a lifelong nonsmoker. She does not use any alcohol marijuana or illicit drugs. 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 Code status full code Smoking status: Never smoker Second hand tobacco smoke exposure: No Alcohol intake: never Alcohol use details: very rarely Substance use: never Substance use type: does not use Living arrangements: with family Spiritual care concerns: No Comments At time of signature, I have reviewed and agree with nursing past medical, surgical, social and family history unless otherwise noted. Please see nursing chart for further information. There is no relevant family history pertinent to the presenting complaint Exam Narrative: GENERAL: Well-appearing, well-nourished, and in no acute distress. HEAD: Normocephalic, atraumatic. EYES: EOMI. No redness or drainage. Conjunctivae normal. ENT: Mucous membranes pink and moist. Nares clear. No rhinorrhea. TMs normal bilaterally. Throat mildly erythematous and edematous. Tiny white lesion to the right palatine arch. Tonsils absent. Uvula midline. NECK: Normal AROM. Supple. No lymphadenopathy. CHEST: No respiratory distress. Clear to auscultation. HEART: Regular rate and rhythm. No murmur appreciated. EXTREMITIES: Normal range of motion. No edema. SKIN: Warm, dry, no rash. Capillary refill normal. Normal skin turgor. NEURO: No focal deficits. Alert and oriented x3. Gait steady. PSYCH: Normal affect. No signs of depression or anxiety. Course Course Level of Care: Express Care Visit Vital Signs Vital signs: Vital Signs Temperature 98.4 F 05/31/25 17:40 Pulse Rate 76 05/31/25 17:40 Respiratory Rate 20 05/31/25 17:40 Blood Pressure 140/94 H 05/31/25 17:40 Pulse Oximetry 99 05/31/25 17:40 Oxygen Delivery Room Air 05/31/25 17:40 Temperature 98.4 F 05/31/25 17:40 Pulse Rate 76 05/31/25 17:40 Respiratory Rate 20 05/31/25 17:40 Blood Pressure 140/94 H 05/31/25 17:40 Pulse Oximetry 99 05/31/25 17:40 Oxygen Delivery Room Air 05/31/25 17:40 Reviewed MDM - URI/Sore Throat MDM Narrative Medical decision making narrative: 39-year-old female patient presents today with a 3 day history of right-sided sinus, ear pain with a right-sided headache. Exam shows a mildly erythematous throat, but does otherwise negative. She denies cough, fever, rhinorrhea, or any additional symptoms. She has been taking some ibuprofen and sinus medication with mild relief and currently rates her discomfort 01/26. Rapid strep negative. Culture pending. Vital signs stable. Symptoms likely viral in etiology. Discussed [id number] medication use and duration of illness. Recommend PCP follow-up in 1 week if symptoms persist. ED precautions given. Differential Diagnosis Differential diagnosis: Likely upper respiratory infection, otitis media, sinusitis, viral infection, pharyngitis and other (Strep throat, aphthous ulcer) Lab Data Attestation: I reviewed the patient's lab results. Labs: Lab Results 05/31/25 Range/Units 18:08 POC Grp A Strep Screen Negative (Negative) Critical Care Time Critical Care Time Critical Care Time: No Discharge Plan Discharge Clinical Impression: Upper respiratory infection Qualifiers: URI type: unspecified URI Qualified Code(s): J06.9 - Acute upper respiratory infection, unspecified Patient Disposition: Home Condition: Stable Instructions: Upper Respiratory Infection (DC) Additional Instructions: Your rapid strep swab was negative today at [facility]. You will be notified in a few days if the culture comes back positive for strep, and appropriate antibiotics will be called in for you at that time. Your symptoms are likely due to a viral illness, which is not treated with antibiotics. Viral symptoms can be present for up to 7-10 days. Take Tylenol or ibuprofen for fever or pain. Rest and stay hydrated. Follow up with your PCP in 7 days if symptoms are not improving. Go to the ER immediately if you have any difficulty breathing or swallowing. Patient Language: Botswanan Prescriptions: No Action venlafaxine 75 mg capsule,extended release 24hr 75 mg PO DAILY venlafaxine 150 mg capsule,extended release 24hr 150 mg PO DAILY amlodipine 5 mg tablet 5 mg PO DAILY losartan 50 mg tablet fluconazole 150 mg tablet 150 mg PO ONCE Qty: 2 0RF Follow-up/Referrals: Allyson,Erick Gutierrez MD [Primary Care Provider] - Time of Disposition: 18:18
[2025-05-31 18:10] LABS: EDSTREPNEGPOS1 Negative (Negative)
== END 2025-05-31 18:20 | disposition home or self-care (01) ==
PROVIDERS: Emergency Provider Nurse Practitioner; PCP Family Medicine
DX: J06.9 Acute upper respiratory infection, unspecified (principal); I10 Essential (primary) hypertension; K21.9 Gastro-esophageal reflux disease without esophagitis; G47.33 Obstructive sleep apnea (adult) (pediatric); E66.9 Obesity, unspecified; Z68.41 Body mass index [BMI] 40.0-44.9, adult; F41.9 Anxiety disorder, unspecified
CPT/HCPCS: 87081; 87880; 99212; G0463

== ENCOUNTER 2025-09-17 22:33 | Emergency (ER) | payer OTHER, SELFPAY ==
--- NOTE | ~2025-09-17 | XR_ITS ---
Examination: XR chest 2V Clinical History: L arm pain Comparison: 08/16/2022 Technique: PA and Lateral Findings: Cardiomediastinal silhouette normal size and configuration. Lungs clear. No acute bony abnormality. IMPRESSION: 1. No acute cardiopulmonary findings. Reviewed, dictated and finalized at location R.
--- OUTSIDE RECORDS SUMMARY | 2025-09-17 22:36 | XMS_ITS | Clinical Summary ---
Author Organization [facility] Address [address] [place] [address] Care Team Providers Care Advanced Clinical Specialist Name Role Phone Erick Valadez MD Primary Care Provider [phone] Allergies No known active allergies Medications escitalopram (LEXAPRO) 20 mg tablet Take 1 tablet (20 mg total) by mouth daily Active lisinopriL (PRINIVIL,ZESTR IL) 40 mg tablet Take 1 tablet (40 mg total) by mouth daily Active oxyCODONE-aceta minophen (PERCOCET) 5-325 mg per tabletIndicatio ns:Pain Take 1-2 tablets by mouth every 6 (six) hours as needed for pain 20 tablet 2 Active Additional Information Patient not taking.Reported on 08/24/2023 Eliquis 5 mg tablet Take 1 tablet (5 mg total) by mouth 2 (two) times a day [address] (PROTONIX) 40 mg EC tablet Take 1 tablet (40 mg total) by mouth 2 (two) times a day 2 Active clonazePAM (KlonoPIN) 1 mg tablet Take 1 tablet (1 mg total) by mouth 2 (two) times a day Active hydroCHLOROthia zide (HYDRODIURIL) 12.5 mg tablet 1 tablet (12.5 mg total) Active venlafaxine XR (EFFEXOR-XR) 150 mg 24 hr capsule Take 1 capsule (150 mg total) by mouth 3 Active amLODIPine (NORVASC) 5 mg tablet Take 1 tablet (5 mg total) by mouth daily Active Active Problems Problem Noted Date Diagnosed Date Acute biliary pancreatitis, unspecified complica tion status 10/10/2022 Morbid (severe) obesity due to excess calories 0 03/14/2022 Body mass index 40.0-44.9, adult (CMS/HCC) 03/14 KRISTINA (obstructive sleep apnea) 05/11/2021 Palpitations 04/01/2021 Assessment & Plan (04/01/2021 11:21 AM CDT): Patient's palpitations are likely a consequence of her PVCs. In the setting of normal cardiac structure and performance identified echocardiography, this should only be a nuisance. At this time we plan for conservative management. Atypical chest pain 04/01/2021 Assessment & Plan (04/01/2021 11:09 AM CDT): Patient's chest discomfort is atypical and does not likely represent coronary ischemia. With normal stress testing in the fall, atypical presentation currently, I see no need for further cardiovascular investigation at this time. I did suggest at some point it may be reasonable to consider calcium scoring as a way to screen for calcific coronary disease. Encouraged continued activity in weight management. Tight blood pressure control. Mixed anxiety depressive disorder 04/04/2014 Overview (02/23/2017): Anxiety and depression Acne 04/04/2014 Overview (02/23/2017): Acne Immunizations Immunization Administration Dates Next Due Hep B Vaccine 11/25/1998,03/25/1998,12/05/1997 Tdap 05/21/2006 Surgical History Surgery Date Site/Laterality Comments OTHER SURGICAL HISTORY C/S X 2 SECTION TUBAL LIGATION Medical History Medical History Date Comments Anxiety Hypertension Ventricular tachycardia (HCC) Sick sinus syndrome (HCC) Chest pain Gallstones Family History Medical History Relation Name Comments Coronary artery disease Brother 2 Magdalena nary artery disease, premature; Diabetes Brother 3 Diabetes mellit us; Heart disease Brother 3 Other Brother 4 Renal disease-- DIABETES; Diabetes Brother 5 Sp Coronary artery disease Father Landry Magdalena nary artery disease, premature; Cause of : Coronary artery disease, premature Diabetes Father Landry Diabetes mellit us; Heart disease Father Landry Heart failure Father Landry Alcohol abuse Mother Danya Alcoholism; Hepatitis Mother Danya HEPATITIS C; Diabetes Sister 1 CAMELIA FILE Diabetes mellit us; Asthma Sister 2 Asthma; Asthma Sister 3 Camelia Relation Name Status Comments Brother 1 Alive Brother 2 Brother 3 Brother 4 Brother 5 Sp Father Landry (Age 69) Mother Danya Sister 1 CAMELIA FILE Alive Sister 2 Sister 3 Camelia Social History Tobacco Use Types Packs/Day Years Used Date Smoking Tobacco: Never Smokeless Tobacco: Never Tobacco Cessation:Counseling Given: Not Answered Alcohol Use Standard Drinks/Week Comments No 0 (1 standard drink = 0.6 oz pur e alcohol) Comments No Sex and Gender Information Value Date Recorded Sex Assigned at Not on file Legal Sex Female 1:44 AM [employer] Gender Identity Not on file Sexual Orientation Not on file Obstetrics History Last Filed Vital Signs Vital Sign Reading Time Taken Comments Blood Pressure 121/82 05/27/2024 11:31 AM CDT Pulse 68 05/27/2024 11:31 AM CDT Temperature 37.5 C (99.5 F) 10/11/2022 2:00 AM [employer] Respiratory Rate 18 08/24/2023 8:50 AM CDT Oxygen Saturation 98% 05/27/2024 11:31 AM CDT Inhaled Oxygen Concentration - - Weight 106.6 kg (235 lb) 05/27/2024 11:31 AM CDT Height 162.6 cm (5' 4) 05/27/2024 11:31 AM CDT Body Mass Index 40.34 05/27/2024 11:31 AM CDT Plan of Treatment Health Maintenance Due Date Last Done Comments Breast Cancer Screening-Mammogram 1983 Cervical Cancer Screening 1983 Depression Screening 1983 Hepatitis C Screening 1983 Varicella Vaccines (1 of 2 - 13+ 2-dose series) 1996 Regular Well Visit/Exam 18-64 2001 HPV Vaccines (1 - 3-dose SCD M series) 2010 DTaP/Tdap/Td Vaccine (2 - Td or Tdap) 05/21/2016 05/21/2006 Influenza Vaccine (#1) 2025 11/19/2017 Hepatitis B Screening Completed 11/25/1998 , 03/25/1998, 12/05/1997 Pneumococcal vaccine <65 Aged Out No longer eligible based on patient's age to complete this topic Insurance [facility] Advance Directives For more information, please contact: [phone] * Full Code (Latest Code Status on File) Date Activated Date Inactivated Comments 10/10/2022 8:31 PM 10/11/2022 11:43 PM Care Teams Advanced Clinical Specialist Relationship Specialty Start Date End Date Erick Valadez MD [id number] [place] [address] PCP - General Family Medicine 05/27/24
--- OUTSIDE RECORDS SUMMARY | 2025-09-17 22:36 | XMS_ITS | Patient Health Record ---
Author Organization [facility] Address [address] [place] [address] Care Team Providers Care Utilization Management Nurse Name Role Phone Sara Alas Unavailable [phone] Hero Lara Unavailable [phone] Allergies No Known Allergies Results Component Value Reference Range Notes UDT Reviewed date:08/10/2025 03:14:49 PM Interpretation: Performing Lab: Notes/Report: Amphetamine (AMP) neg 0 - 1000 ng/ml Buprenorphine (BUP) neg 0 - 10 ng/ml Oxazepam (BZO) neg 0 - 300 ng/ml Cocaine (ZOHRA) neg 0 - 300 ng/ml Methamphetamine (mAMP) neg 0 - 300 ng/ml Methylenedioxymethamphetamine (MDMA) neg 0 - 500 ng/ml Morphine (MOP) neg 0 - 25 ng/ml Methadone (MTD) neg 0 - 300 ng/ml Oxycodone (OXY) neg 0 - 300 ng/ml THC neg 0 - 50 ng/ml x neg 0 - 1000 ng/ml x neg 0 - 1000 ng/ml x neg 0 - 300 ng/ml x neg 0 - 300 ng/ml Test Reviewed date:08/10/2025 03:14:49 PM Interpretation: Performing Lab: Notes/Report: Test urine neg 0 - 0 Reason For Referral No Information Medications Medication SIG (Take, Route, Frequency, Duration) Notes Start Date End Date Status Losartan Potassium 50 MG Tablet TAKE 1 TABLET BY MOUTH DAILY Oral; Duration: 90 Days Active hydrOXYzine HCl 25 MG Tablet TAKE 1 TABLET BY MOUTH EVERY NIGHT AT BEDTIME NEEDED Oral Active Venlafaxine HCl ER 150 MG Capsule Extended Release 24 Hour TAKE 1 CAPSULE BY MOUTH DAILY Oral Active Venlafaxine HCl ER 75 MG Capsule Extended Release 24 Hour TAKE 1 CAPSULE BY MOUTH DAILY Oral Active Social History Tobacco Use: Social History Observation Description Date Details (start date - stop date) Never Smoker NA - NA Sex Assigned At : Social History Observation Description Sex Assigned At Female Social History Miscellaneous: Social Info Question Answer Notes Safety issues: Are there any firearms in the house? Ye s Social History Social Info Question Answer Notes Household: Marital Status: Number of Adults in household: 2 Number of Children in Household: 3 Level of Education: Finished College Household: Social Info Question Answer Notes Household Marital status: Number of adults in household: 2 Number of children in household: 3 Level of education: finished college Drug/Alcohol: Social Info Question Answer Notes Drugs Have you used drugs other than those for medical reasons in the past 12 months? No AUDIT-C (Standard) Did you have a drink containing alcohol in the past year? 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 No Problems Problem Type SNOMED Code ICD Code Onset Dates Problem Status W/U Status Risk Notes Problem Generalized anxiety disorder (06616091) Generalized anxiety disorder (F41.1) Active confirmed Problem Obstructive sleep apnea syndrome (71481280) KRISTINA (obstructive sleep apnea) (G47.33) Active confirmed Problem Attention deficit hyperactivity disorder (257446794) Attention deficit hyperactivity disorder (ADHD), unspecified ADHD type (F90.9) Active confirmed Problem Insomnia due to mental disorder (00057599) Insomnia due to mental disorder (F51.05) Active confirmed Vital Signs Heart Rate 88 /min 08/06/2025 Blood pressure diastolic 109 mm Hg 08/06/2025 Weight-kg 113.49 kg 08/06/2025 Blood pressure systolic 134 mm Hg 08/06/2025 Weight 250.2 lbs 08/06/2025 Procedures Procedure Date Ordered Date Performed Result Body Sit e ADHD Testing 08/06/2025 N/A Encounters Encounter Location Date Provider Diagnosis [facility] [address] [address] 08/06/2025 Sara Alas Generalized anxiety disorder F41.1 ; Attention deficit hyperactivity disorder (ADHD), unspecified ADHD type F90.9 ; Insomnia due to mental disorder F51.05 and KRISTINA (obstructive sleep apnea) G47.33 Assessments Encounter Date Diagnosis (ICD Code) Assessment Notes Treatment Notes Treatment Clinical Notes Section Notes 08/06/2025 Generalized anxiety disorder (ICD-10 - F41.1) 08/06/2025 Attention deficit hyperactivity disorder (ADHD), unspecified ADHD type (ICD-10 - F90.9) 08/06/2025 Insomnia due to mental disorder (ICD-10 - F51.05) 08/06/2025 KRISTINA (obstructive sleep apnea) (ICD-10 - G47.33) 08/06/2025 Alexey Corona is an adult patient with a history of OCD, anxiety, PTSD, and sleep apnea, presenting with concerns about anxiety, depression, and possible ADHD. Possible Attention-Deficit/ Hyperactivity Disorder (ADHD) Assessment: Patient reports struggling with focus, procrastination, and task completion both at home and work. Symptoms include difficulty organizing tasks, poor attention to details, fidgeting, and restlessness. These symptoms appear to have been present since high school, with academic performance declining after freshman year. The patient's counselor suspects ADHD, though a previous psychiatrist suggested borderline personality disorder. Given the reported symptoms and their impact on daily functioning, ADHD is a consideration, but further evaluation is needed for a definitive diagnosis. Plan: - Discontinue atomoxetine (Strattera) 80 mg daily due to lack of efficacy - Schedule ADHD testing - Discuss potential medication options, pending test results and considering blood pressure concerns Anxiety Disorder with OCD features Assessment: Patient reports longstanding anxiety with obsessive-compulsi ve features, including germaphobia and excessive hand washing, which began after the of her son in 2019. She also experiences general anxiety and worry about overwhelming situations. The patient has a history of panic attacks, with the first occurring in college. Current treatment includes venlafaxine 225 mg daily and as-needed hydroxyzine, which appear to be managing symptoms adequately. Plan: - Continue venlafaxine 225 mg daily - Continue hydroxyzine as needed for anxiety - Encourage ongoing use of coping strategies such as deep breathing Insomnia Assessment: Patient reports taking hydroxyzine at bedtime as needed for sleep. Previously took every night, now onlly needing to take on occasion for nights when she is more anxious and can't shut her brain down. Plan: - Continue hydroxyzine 25 mg at bedtime as needed for sleep Sleep Apnea Assessment: Patient was diagnosed with mild sleep apnea in 2020 and prescribed CPAP therapy. However, compliance with CPAP has been inconsistent due to various health issues and appointments. Poor sleep quality may be contributing to fatigue, exhaustion, and difficulty focusing. Plan: - Encourage consistent use of CPAP machine - Follow up with sleep medicine to ensure proper CPAP settings and fit Hypertension Assessment: Patient's blood pressure was elevated during the visit (134/109 mmHg). This is a concern, especially considering the potential need for stimulant medications for ADHD, which could further increase blood pressure. The patient is currently on unspecified blood pressure medication. Plan: - Monitor blood pressure closely, especially if initiating stimulant medication for ADHD - Continue current blood pressure medication Medical Decision Making Moriah Corona is an adult patient with a history of OCD, anxiety, and sleep apnea, presenting for evaluation of possible ADHD and medication management for anxiety and depression. The patient's current regimen includes venlafaxine 225mg daily and atomoxetine 80mg daily, with recent initiation of atomoxetine this year. Despite being on the maximum dose of atomoxetine for over a month, the patient reports no significant improvement in ADHD symptoms. The patient's history of difficulty focusing, procrastination, and organizational challenges since high school suggests possible long-standing ADHD symptoms, though a formal diagnosis has not been made. Sleep apnea, diagnosed in 2020 and currently undertreated due to inconsistent CPAP use, may be contributing to fatigue and concentration issues. The patient's blood pressure of 134/109 is noted to be elevated, which is a concern given the potential need for stimulant medications that could further increase blood pressure. The current dose of venlafaxine (225mg) is targeting both serotonin and norepinephrine, which may be beneficial for focus but also contributes to blood pressure concerns. Given the lack of response to atomoxetine and the complexity of the patient's presentation, further evaluation with an ADHD-specific computer test is being considered to assess working memory, sustained attention, and distractibility before making treatment decisions. Plan Of Treatment Pending Test Test Name Order Date ADHD Testing 08/06/2025 Insurance Providers Payer Name Payer Address Payer Phone Subscriber Number Group Number Insured Name Patient Relationship to Insured Coverage Start Date Coverage End Date [employer] [address] [place] [address] [id number] CjMoriah diaz Self - patient is the insured Medical (General) History Medical History History ICD Code Past Psychiatric History: Anxiety Disord er hypertension vitamin B12 deficiency: Yes vitamin D deficiency: Yes KRISTINA Pancreatitis Surgical History Surgery Date(Month/Year) Gall bladder removal 03/04/2023 Csection 06/14/2012 Csection 09/02/2009 and tubal 02/28/19 Tonsils removed 1988 Hospitalization History Reason Date(Month/Year) Pancreatitis 08/12/2022 Csection 02/28/2109 Csection 06/14/12 Csection 09/02/09
--- OUTSIDE RECORDS SUMMARY | 2025-09-17 22:36 | XMS_ITS | Patient Health Record ---
Author Organization [facility] [employer] Address [address] [facility] [address] [place] [address] Support Name Relationship Address Phone FUNMI ROSALES Guarantor Unknown [phone] Reason For Referral No Information Plan Of Treatment No Information
--- OUTSIDE RECORDS SUMMARY | 2025-09-17 22:36 | XMS_ITS | Clinical Summary ---
Author Organization [facility] Address [address] [place] [address] Care Team Providers Care Senior Systems Administrator Name Role Phone Erick Valadez MD Primary Care Provider [phone] Social History Tobacco Use Types Packs/Day Years Used Date Smoking Tobacco: Never Assessed Comments Unknown Sex and Gender Information Value Date Recorded Sex Assigned at Not on file Legal Sex Female 8:10 PM CDT Gender Identity Not on file Sexual Orientation Not on file Plan of Treatment Health Maintenance Due Date Last Done Comments Cervical Cancer Screening Pa p Smear (Age 30 to 64) Every 3 Years 1983 Annual Physical 1986 Hepatitis C 2001 DTaP, Tdap and Td Vaccines ( 1 - Tdap) 2002 Hepatitis B Vaccines (1 of 3 - 19+ 3-dose series) 2002 HPV Vaccines (1 - 3-dose SCD M series) 2010 Cervical Cancer Screening Pa p with HPV Testing (Age 30 to 64) Every 5 Years 2013 Cervical Cancer Screening with HPV 2013 Mammogram Screening 2023 COVID-19 Vaccine ( - 2024-2 6 season) 2025 Influenza Adult (#1) 2025 Hepatitis A Vaccines Aged Out No long er eligible based on patient's age to complete this topic Meningococcal B Vaccine Aged Out No l onger eligible based on patient's age to complete this topic Meningococcal Vaccine Aged Out No adal amy eligible based on patient's age to complete this topic Pneumococcal Vaccine: Pediat rics (0 to 5 Years) and At-Risk Patients (6 to 49 Years) Aged Out No longer eligible b ased on patient's age to complete this topic RSV Immunizations Under 20 Months Aged Out No longer eligible based on patient's age to complete this topic Care Teams Senior Systems Administrator Relationship Specialty Start Date End Date Erick Valadez MD [address] [facility] [place] [address] PCP - General FAMILY PRACTICE 03/26/24
[2025-09-17 22:40] VITALS: BP 154/114; PULSE 75; RESP 16; TEMP 36.4; O2SAT 100
--- NOTE | 2025-09-17 22:44 | ECG_ITS ---
Test Date: 2025-09-17 22:49:18 Measurements Intervals [place] Rate: 66 P: 36 IA: 172 QRS: 22 QRSD: 102 T: 58 QT: 411 QTc: 431 Interpretive Statements SINUS RHYTHM INCOMPLETE RIGHT BUNDLE BRANCH BLOCK BORDERLINE ECG No previous ECG available for comparison Electronically Signed On 09-18-2025 06:12:39 CDT by Jed Null D.O.
[2025-09-17 23:06] LABS: Hematocrit 40.9 % (37.0-47.0); Hemoglobin 13.9 g/dL (12.0-15.0); Immature Granulocyte Percent A 0.4 % (0-0.5); Lymphocytes Absolute Auto 3.59 K/mm3 (0.9-3.2); Mean Corpuscular HGB Conc 34.0 g/dl (32-36); Mean Corpuscular Hemoglobin 28.1 pg (26-34); Mean Corpuscular Volume 82.8 fl (80-100); Nucleated Red Blood Cells Absolute Auto 0.000 K/mm3 (0.0-0.012); Nucleated Red Blood Cells Perc 0.0 % (0.0-0.2); Platelet Count Result 277 k/mm3 (150-375); Red Blood Count 4.94 M/mm3 (4.2-5.4); White Blood Count 11.0 K/mm3 (4.5-10.0)
[2025-09-17 23:17] LABS: INR 1.0; Prothrombin Time 13.5 Seconds (11.1-14.7)
[2025-09-17 23:18] LABS: Partial Thromboplastin Time 25.6 Seconds (22.3-36.8)
--- OUTSIDE RECORDS SUMMARY | 2025-09-17 23:20 | XMS_ITS | Clinical Summary ---
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 Gender Identity Not on file Sexual Orientation Not on file Obstetrics History Last Filed Vital Signs Vital Sign Reading Time Taken Comments Blood Pressure 121/82 05/27/2024 11:31 AM CDT Pulse 68 05/27/2024 11:31 AM CDT Temperature 37.5 C (99.5 F) 10/11/2022 2:00 AM AIRCRAFT SYSTEMS TECHNICIAN Respiratory Rate 18 08/24/2023 8:50 AM CDT [...] patient's age to complete this topic Insurance [facility] Advance Directives For more information, please contact: [phone] * Full Code (Latest Code Status on File) Date Activated Date Inactivated Comments 10/10/2022 8:31 PM 10/11/2022 11:43 PM Care Teams Behavioral Assistant Relationship Specialty Start Date End Date Erick Valadez MD [address] [place] [address] PCP - General Family Medicine 05/27/24
--- OUTSIDE RECORDS SUMMARY | 2025-09-17 23:20 | XMS_ITS | Clinical Summary ---
Author Organization [facility] Address [address] [place] [address] Care Team Providers Care Creative Writing Teacher Name Role Phone Erick Valadez MD Primary Care Provider [phone] Social History Tobacco Use Types Packs/Day Years [...] age to complete this topic Care Teams Creative Writing Teacher Relationship Specialty Start Date End Date Erick Valadez MD [address] [facility] [place] [address] PCP - General FAMILY PRACTICE 03/26/24
[2025-09-17 23:26] LABS: Alanine Aminotransferase 36 U/L (6-35); Albumin Level 4.1 g/dL (3.5-5.1); Alkaline Phosphatase 81 U/L (38-126); Anion Gap 8 mmol/L (4-12); Aspartate Amino Transferase 28 U/L (14-36); Bilirubin,Total 0.7 mg/dL (0.2-1.3); Blood Urea Nitrogen 14 mg/dL (7-17); Calcium 8.8 mg/dL (8.4-10.2); Carbon Dioxide 29 mmol/L (22-30); Chloride 99 mmol/L (98-107); Estimated CRCL calculation 118 ml/min; Estimated Glomerular Filt Rate > 60; Glucose 120 mg/dL (65-110); Lipase 40 U/L (23-300); Potassium 3.7 mmol/L (3.4-5.0); Sodium 136 mmol/L (137-145); Total Protein 7.4 g/dL (6.3-8.2)
[2025-09-17 23:37] LABS: Troponin I < 0.012 ng/mL (0.000-0.034)
--- NOTE | 2025-09-17 23:47 | ED.EXTPRO ---
HPI - Extremity Problem General Chief complaint: Extremity Problem,Nontraumatic Stated complaint: Sudden left arm pain x 1hour, Hx HTN Time Seen by Provider: 09/17/25 22:59 History of Present Illness HPI Narrative: 39-year-old female with history of hypertension currently being titrated on outpatient medications presenting to the emergency department with left arm pain. She describes as left arm ache that was throbbing in quality it started around 830 tonight while she was at home not doing anything exertional. Radiates slightly into her chest. Describes as a throbbing sensation going down her left arm and has had this previously and this is why she was diagnosed with hypertension. Started taking amlodipine and currently being titrated on losartan in addition. Denies any chest tightness or chest pain right now. No shortness of breath, nausea, vomiting. Tried some ibuprofen prior to arrival without any improvement. No headache or vision changes, neck pain. No back pain, shoulder blade pain, abdominal pain. No traumatic injuries. No restricted range of motion. No fever, chills, paresthesias or sensory deficits/motor deficits. Related Data Home Medications ?Medication ?Instructions ?Recorded ?Confirmed ?Last Taken ?Type venlafaxine 150 mg 150 mg PO DAILY 10/22/23 04/05/25 Unknown History capsule,extended release 24 hr venlafaxine 75 mg capsule,extended 75 mg PO DAILY 10/22/23 04/05/25 Unknown History release 24 hr amlodipine 5 mg tablet 5 mg PO DAILY 05/11/24 04/05/25 Unknown History losartan 50 mg tablet mg 04/05/25 Unknown History Allergies Allergy/AdvReac Type Severity Reaction Status Date / Time No Known Allergies Allergy Verified 09/17/25 22:45 Review of Systems Review of Systems: As reviewed above [facility] Past Medical History Medical History Anxiety GERD (gastroesophageal reflux disease) KRISTINA (obstructive sleep apnea) she does not wear her CPAP machine she has an oral apparatus. HTN (hypertension) Obese Dysphagia Abdominal pain Cholelithiases Surgical History Surgical History H/O tubal ligation H/O abdominal surgery due to postop postop complication Hx of tonsillectomy H/O: X3 Family History Family History Father Diabetes mellitus Sibling Hypertension Asthma Social History Social History Social History: the patient is and lives with her . They have 3 children together. She is a lifelong nonsmoker. She does not use any alcohol marijuana or illicit drugs. 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 Her is the durable power defense attorney for healthcare. Code status full code Smoking status: Never smoker Second hand tobacco smoke exposure: No Alcohol intake: never Alcohol use details: very rarely Substance use: never Substance use type: does not use Living arrangements: with family Spiritual care concerns: No Exam Narrative: GENERAL: [Well-appearing, well-nourished, and in no acute distress.] HEAD: [Normocephalic, atraumatic.] EYES: [PERRLA and EOMI.] ENT: Nares clear, no rhinorrhea or epistaxis. Mucous membranes moist. NECK: Supple. CHEST: [Clear to auscultation. No respiratory distress.] HEART: [Regular rate and rhythm]. No murmur heard. [Normal peripheral pulses.] ABDOMEN: [Soft, nondistended], [nontender], [No rigidity or guarding] EXTREMITIES: Normal range of motion. [No edema.] SKIN: Warm, dry, no rash. NEURO: [No focal deficits]. Alert and oriented [x3.] PSYCH: [Normal mood and affect.] Course Vital Signs Vital signs: Vital Signs Temperature 36.4 C 09/17/25 22:40 Pulse Rate 75 09/17/25 22:40 Respiratory Rate 16 09/17/25 22:40 Blood Pressure 154/114 H 09/17/25 22:40 Pulse Oximetry 100 09/17/25 22:40 Oxygen Delivery Room Air 09/17/25 22:40 Temperature 36.4 C 09/17/25 22:40 Pulse Rate 69 09/18/25 00:38 Respiratory Rate 19 09/18/25 00:38 Blood Pressure 144/95 H 09/18/25 00:38 Pulse Oximetry 99 09/18/25 00:38 Oxygen Delivery Room Air 09/17/25 22:40 MDM - Extremity (Nontraumatic) MDM Narrative Medical decision making narrative: 39-year-old female with history of hypertension currently being titrated on outpatient medications presenting to the emergency department with left arm pain. She describes as left arm ache that was throbbing in quality it started around 830 tonight while she was at home not doing anything exertional. Radiates slightly into her chest. Describes as a throbbing sensation going down her left arm and has had this previously and this is why she was diagnosed with hypertension. Started taking amlodipine and currently being titrated on losartan in addition. Denies any chest tightness or chest pain right now. No shortness of breath, nausea, vomiting. Tried some ibuprofen prior to arrival without any improvement. No headache or vision changes, neck pain. No back pain, shoulder blade pain, abdominal pain. No traumatic injuries. No restricted range of motion. No fever, chills, paresthesias or sensory deficits/motor deficits. patient is mildly hypertensive here but no tachycardia, fever, hypoxia. Strong radial and ulnar pulses. No pain reproduced with palpation or movement of the upper extremity. No paresthesias sensory deficits. Normal strength in neurological assessment. Patient states she has had arm pain like this prior and attributed to the elevated blood pressure readings. Does have a family history of cardiac events. Workup underway including troponin, dimer, EKG, chest x-ray. Patient given morphine and Toradol for analgesia and re-evaluated. Suspect probable musculoskeletal causes versus less likely ACS or vascular anomalies. Will rule out with dimer in troponin as well as labs. Will re-evaluated patient placed on monitoring engineer. Laboratory studies show some hemoconcentration with elevated hemoglobin above her baseline, will be hydrated with fluids. Normal platelet count. No significant leukocytosis. Coag studies within normal limits. Electrolytes normal. Normal creatinine. Normal glucose. D-dimer negative. Troponin negative. Lipase negative. chest x-ray does not appear to have any pneumonia pneumothorax. No apical masses appreciated. Normal ribcage. No cardiomegaly. Hemodynamically stable. Patient had improvement pain control after medications. EKG without any ischemia. Safe for discharge with regular primary care provider follow-up at this time. Lab Data 09/17/25 22:57 09/17/25 22:57 Labs: Lab Results 09/17/25 09/17/25 Range/Units 22:56 22:57 WBC 11.0 H (4.5-10.0) K/mm3 RBC 4.94 (4.2-5.4) M/mm3 Hgb 13.9 D (12.0-15.0) g/dL Hct 40.9 (37.0-47.0) % MCV 82.8 (80-100) fl MCH 28.1 (26-34) pg MCHC 34.0 (32-36) g/dl RDW 14.0 (11.5-14.5) % Plt Count 277 D (150-375) k/mm3 MPV 9.9 (7.4-10.4) fl Immature Gran % (Auto) 0.4 (0-0.5) % Neut % (Auto) 60.4 (45.5-73.1) % Lymph % (Auto) 32.7 (18.3-44.2) % [place] % (Auto) 6.3 (2.6-8.5) % Eos % (Auto) 0.1 (0-4.4) % Baso % (Auto) 0.1 L (0.2-1.2) % Lymph # (Auto) 3.59 H (0.9-3.2) K/mm3 [place] # (Auto) 0.7 H (0.1-0.6) K/mm3 Eos # (Auto) 0.0 (0-0.3) K/mm3 Baso # (Auto) 0.0 (0.0-0.1) K/mm3 Abs Immat Gran (auto) 0.04 H (0.00-0.031) K/mm3 Absolute Neuts (auto) 6.6 (1.3-6.7) K/mm3 Absolute Nucleated RBC 0.000 (0.0-0.012) K/mm3 Nucleated RBC % 0.0 (0.0-0.2) % PT 13.5 (11.1-14.7) Seconds INR 1.0 APTT 25.6 (22.3-36.8) Seconds D-Dimer < 0.27 (<0.48) ug/mL Sodium 136 L (137-145) mmol/L Potassium 3.7 (3.4-5.0) mmol/L Chloride 99 (98-107) mmol/L Carbon Dioxide 29 (22-30) mmol/L Anion Gap 8 (4-12) mmol/L BUN 14 (7-17) mg/dL Creatinine 0.66 L (0.7-1.0) mg/dL Estim Creat Clear Calc 118 ml/min Estimated GFR > 60 (59 - ) Glucose 120 H (65-110) mg/dL Calcium 8.8 (8.4-10.2) mg/dL Total Bilirubin 0.7 (0.2-1.3) mg/dL AST 28 (14-36) U/L ALT 36 H (6-35) U/L Alkaline Phosphatase 81 (38-126) U/L Troponin I < 0.012 (0.000-0.034) ng/mL Total Protein 7.4 (6.3-8.2) g/dL Albumin 4.1 (3.5-5.1) g/dL Lipase 40 (23-300) U/L Discharge Plan Discharge Clinical Impression: Arm pain, left, Hypertension Patient Disposition: Home Condition: Stable Instructions: Antibiotic Form Additional Instructions: EKG and chest x-ray unremarkable. Blood clot level and troponin negative. No signs of heart issues. Laboratory studies are unrevealing. symptoms could be musculoskeletal or related to your elevated blood pressure readings. Contact your primary care provider for follow-up and titration of your medications. No signs of organ damage at this time. Safe to go home with follow-up. Patient Language: Icelandic Prescriptions: No Action venlafaxine 75 mg capsule,extended release 24hr 75 mg PO DAILY venlafaxine 150 mg capsule,extended release 24hr 150 mg PO DAILY amlodipine 5 mg tablet 5 mg PO DAILY losartan 50 mg tablet fluconazole 150 mg tablet 150 mg PO ONCE Qty: 2 0RF Follow-up/Referrals: Allyson,Erick Gutierrez MD [Primary Care Provider, Unknown] Time of Disposition: 00:30
--- NOTE | 2025-09-17 23:48 | ECG_ITS ---
Test Date: 2025-09-17 23:51:49 Measurements Intervals [place] Rate: 59 P: 49 [place]: 176 QRS: 44 QRSD: 96 T: 62 QT: 428 QTc: 425 Interpretive Statements SINUS BRADYCARDIA INCOMPLETE RIGHT BUNDLE BRANCH BLOCK MINIMAL Q WAVES- INF/LAT LEADS BORDERLINE ECG Compared to ECG 09/17/2025 22:49:18 HEART RATE HAS Electronically Signed On 09-18-2025 06:13:59 CDT by Jed Null D.O.
[2025-09-17] MEDS: ASPIRIN 81 MG CHEWABLE TABLET 324 MG PO (23:56)
[2025-09-18] MEDS: KETOROLAC 15 MG/ML VIAL (*BKC) IV PUSH (00:09)
[2025-09-18] MEDS: MORPHINE SULFATE (*CRX) 4 MG/ML INJ IV PUSH (00:10)
[2025-09-18 00:34] VITALS: BP 144/95; PULSE 69; RESP 19; O2SAT 99
[2025-09-18 00:38] VITALS: BP 144/95; PULSE 69; RESP 19; O2SAT 99
== END 2025-09-18 00:34 | disposition home or self-care (01) ==
PROVIDERS: Emergency Provider Student in an Organized Health Care Education/Training Program; PCP Family Medicine
DX: M79.602 Pain in left arm (principal); I10 Essential (primary) hypertension
CPT/HCPCS: 36415; 71046; 80053; 81025; 83690; 84484; 85025; 85380; 85610; 85730; 93005; 96374; 96375; 99284; A9270; J1885; J2270